=== PATIENT | female | born 1945 | race Caucasian/White ===

== ENCOUNTER 2019-07-24 22:21 | Inpatient (IN) | payer MEDICARE, OTHER, SELFPAY ==
--- NOTE | 2019-07-24 22:21 | EKG12_ITS ---
Test Reason : Blood Pressure : / mmHG Vent. Rate : 100 BPM Atrial Rate : 100 BPM P-R Int : 146 ms QRS Dur : 098 ms QT Int : 338 ms P-R-T Axes : 083 062 -31 degrees QTc Int : 436 ms Normal sinus rhythm ST & T wave abnormality, consider inferior ischemia Abnormal ECG No previous ECGs available Confirmed by CESAR GARCIA, AVEL ([id number]), assistant film editor CADEN MALHOTRA ([id number] on 07/26/2019 9:41:41 AM Referred By: Confirmed By:DAVE GUERRERO MD
[2019-07-24 22:54] VITALS: BMI 38.5
--- NOTE | 2019-07-24 22:56 | PCM.HP.STD ---
Problem List (1) Non-STEMI (non-ST elevated myocardial infarction) Status: Acute (2) Chest pain Status: Acute Qualifiers: Chest pain type: unspecified Qualified Code(s): R07.9 - Chest pain, unspecified (3) Hypertension Status: Chronic Qualifiers: Hypertension type: essential hypertension Qualified Code(s): I10 - Essential (primary) hypertension (4) Chronic obstructive pulmonary disease (COPD) Status: Chronic Qualifiers: COPD type: unspecified COPD Qualified Code(s): J44.9 - Chronic obstructive pulmonary disease, unspecified (5) Former tobacco use Status: Chronic (6) Obesity (BMI 30-39.9) Status: Chronic History of Present Illness Date of Admission: 07/24/19 Chief Complaint: Chest pain, elevated troponin at OSH ED The patient is a 74 y/o F w/ PMHx: HTN, Chronic COPD who presents to the [facility] as a direct admission from [facility] on 07/24/19 with history of several weeks of occasional rare chest discomfort, moreso with activity with onset on day of ED presentation more severe discomfort, noted midsternal chest pressure with fluttering while digging a ditch, more severe pressure, 10/10 in severity initially with lightheadedness, dizziness, nausea without emesis and no increased diaphoresis requiring her to sit down, prompting ED evaluation. She had a stress testing 04/2018 at [facility] reportedly normal per the patient. Patient currently rates pain 0/10. OSH ED physician called back prior to patient transfer with update noting 1.39, remained pain free. Upon [facility] transition she does note some discomfort when she is up and moving primarily with usage of the restroom but upon evaluation per hospitalist denies any chest pressure. Work-up in the OSH ED included: VS: T 97.3, HR 118-->80, RR 18, BP 144/90, 93% on RA, 210 lbs. CBC w/ WBC 7.9, Hgb 14.7, Plts 149 without marked shift, no lymphopenia. BMP w/ Na 140, K 3.3, BUN/Cr 17/0.8, glucose 119. Trop: 0.35 (0-0.05 normal)-->2nd trop 1.39 EKG w/ sinus tachycardia with rate 110 (1709) with nonspecific ST segment changes without acute evidence of ischemia. CXR without acute cardiopulmonary findings. Medications: ASA 325 mg po x 1. Past Medical History Past Medical History (Chronic Problems): Chronic Problems Hypertension (Chronic) Chronic obstructive pulmonary disease (COPD) (Chronic) Former tobacco use (Chronic) Obesity (BMI 30-39.9) (Chronic) Surgical History: - - Bilateral total hip replacement, right ankle surgery, right carpal tunnel release, left hand surgery, gastric bypass. 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 Tobacco Use: Non-smoker Alcohol: None Drugs: None - *Family History Maternal History Items: Heart Disease Paternal History Items: Heart Disease Review of Systems Constitutional: Reports: Malaise, Weakness, Fatigue. Denies: Anorexia, Chills, Fever, Weight Change HEENT: Denies: Head Aches, Sinus Congestion, Sinus Drainage Cardiovascular: Reports: Chest Pain, Chest Pressure, Light Headedness. Denies: Chest Tightness, Heaviness, Palpitations Respiratory: Reports: Shortness of Breath, Shortness of breath at rest, Shortness of breath upon exertion, Wheezing. Denies: Cough, Sputum production Gastrointestinal: Reports: Nausea. Denies: Abdominal Pain, Vomiting Genitourinary: Denies: Dysuria Musculoskeletal: Reports: Joint Pain. Denies: Joint Tenderness Skin: Denies: Rash, Wounds Neurological: Denies: Numbness, Tingling, Focal weakness Psychiatric: Denies: Anxiety, Depression, Homicidal Ideations, Suicidal Ideations Hematologic/ Lymphatic: Denies: Easy Bruising, Easy Bleeding VTE Information - Inpt Only VTE Present on Admission: No VTE Mechan Device Prophylaxis: SCD's VTE Pharm Prophylaxis ordered?: Yes Patient Problems: Active and Suspected Problems Non-STEMI (non-ST elevated myocardial infarction) (Acute) Chest pain (Acute) Subjective: Patient seated upright in the C bed, currently denying chest discomfort, had been wheezing which subsided during evaluation, recent ambulation from restroom. Objective: Physical Examination: General: awake, alert, oriented x 3 and cooperative, seated upright in the PCU bed, no acute distress currently, denies any chest discomfort at this time. Skin: normal color, turgor, no icterus, cyanosis. HEENT: AT/NC, EOMI, PERRLA, MMM, no carotid bruits or JVD noted; ever, thickened neck makes examination difficult. Lungs: Upon initial evaluation expiratory wheezing heard audibly however upon evaluation diminished, greater bases but no audible wheezing, no rales or rhonchi and no evidence of distress. Heart: Regular rate and rhythm; no gallop, rub audible. Abdomen: soft, obese, NTTP, ND, normal BS, no HSM; however, habitus makes examination difficult. Extremities: no cyanosis, clubbing, bilateral lower extremity ankle to distal bradford edema but nonpitting. Neurological: patient awake, alert, oriented x 3; cognitive function intact; pupils equally reactive to light and accomodation; cranial nerves II-XII grossly normal, moving all 4 extremities, no focal deficits, strength moderately globally Destiny secondary to acute presentation. Psychiatric: affect appears mildly fatigued otherwise pleasant and normal, no acute evidence of depressive or anxiety feelings. - Physical Exam Current Medications Acetaminophen (Tylenol) 650 mg PO Q6H PRN PRN PRN Reason: Pain Score 1-10/Temp > 100.7 F Al Hydroxide/Mg Hydroxide (Mylanta Ii) 30 ml PO Q6H PRN PRN PRN Reason: Gastric Burning Albuterol Sulfate (Ventolin Aerosols) 2.5 mg INHALATION Q2H PRN PRN PRN Reason: Dyspnea, wheezing Albuterol/Ipratropium (Duoneb) 3 ml INHALATION Q6HWA.RT ANITA Aspirin (Aspirin, Baby) 81 mg PO DAILY@0800 [facility] Dextrose (D50w Syringe) 0 gm IV X1 PRN; Protocol PRN Reason: Hypoglycemia Famotidine (Pepcid) 20 mg PO BID ANITA Glucagon () 1 mg IM .X1 PRN PRN Reason: Hypoglycemia Guaifenesin (Robitussin) 20 ml PO Q4H PRN PRN PRN Reason: COUGH Hydralazine HCl (Apresoline Iv) 10 mg IV Q4H PRN PRN PRN Reason: SBP > 160 Sodium Chloride () 1,000 mls @ 100 mls/hr IV .Q10H ANITA Heparin Sodium/Dextrose () 25,000 units in 250 mls @ 0 mls/hr IV .Q0M ANITA; Protocol Sodium Chloride () 250 mls @ 15 mls/hr IV .[id number] PRN PRN Reason: Saline Flush Sodium Chloride () 250 mls @ 15 mls/hr IV .[id number] PRN PRN Reason: Additional IVPB Infusion Magnesium Hydroxide (Milk Of Magnesia) 30 ml PO DAILY PRN PRN PRN Reason: Constipation Melatonin (Melatonin) 3 mg PO QHS PRN PRN PRN Reason: INSOMNIA Morphine Sulfate () 2 mg IV Q3H PRN PRN PRN Reason: Pain Score 6-10/10 Nitroglycerin (Nitrostat) 0.4 mg SUBLINGUAL Q5M PRN PRN Reason: CARDIAC/CHEST PAIN Ondansetron HCl (Zofran) 4 mg IV Q8H PRN PRN PRN Reason: NAUSEA/VOMITING Oxycodone HCl (Oxyir) 5 mg PO Q4H PRN PRN PRN Reason: Pain Score 4-5/10 Prochlorperazine Edisylate (Compazine Iv) 5 mg IV Q4H PRN PRN PRN Reason: Breakthrough Nausea/Vomiting Psyllium Hydrophilic Mucilloid (Metamucil) 1 packet PO DAILY PRN PRN PRN Reason: Constipation Senna/Docusate Sodium (Senokot-S, Mandi-Colace) 2 tablet PO BID PRN PRN PRN Reason: Constipation Sodium Chloride () 10 - 40 ml IV UD PRN PRN Reason: SALINE FLUSH Throat Lozenges (Cepacol Sore Throat Lozenge) 1 lozenge MUCOUS MEM Q2H PRN PRN PRN Reason: SORE THROAT Assessment/Plan All Active Problems Non-STEMI (non-ST elevated myocardial infarction) (Acute) Chest pain (Acute) The patient is a 74 y/o F w/ PMHx: HTN, Chronic COPD who presents to the [facility] as a direct admission from [facility] on 07/24/19 with history of several weeks of occasional rare chest discomfort, moreso with activity with onset on day of ED presentation more severe discomfort, noted midsternal chest pressure with fluttering while digging a ditch, more severe pressure, 10/10 in severity initially with lightheadedness, dizziness, nausea without emesis . 1. Chest Pain secondary to Acute NSTEMI: EKG in ED w/ sinus tachycardia with nonspecific ST segment changes with no acute evidence of ischemia, CXR w/ no acute cardiopulmonary findings. Trop elevated, 0.35 with repeat 1.39. Patient chest pain free in the OSH ED prior to transfer. Will admit to PCU, maintain on a monitored bed, continue serial cardiac enzymes and EKGs. Obtain magnesium level upon admission. Will continue therapeutic heparin drip. Continue medical management w/ asa, add statin w/ AM FLP hold on beta-vicente therapy given underlying COPD history pending cardiology evaluation, consideration transition to LISA inhibitor/ARB instead of patient diuretic hypertensive regimen. Cardiology consulted. Maintain NPO after midnight in case of cardiac catheterization decision with judicious hydration. ASA, NG, morphine. 2. Chronic COPD: Hold home inhaler, Will maintain on oxygen with wean as tolerated to room air, continue ATC duonebs, PRN albuterol, HOB, IS parameters. 3. Hypertension: Continue home regimen including chlorothiazide although given presentation discussed with patient likely transition to alternate regimen, PRN hydralazine. 4. Morbid Obesity: Weight loss and lifestyle changes encouraged. 5. Former tobacco use: Encouraged continued tobacco cessation. 6. DVT prophylaxis: SCDs, heparin drip as noted. Inpatient E&M: 85322 Init Hosp L3
[2019-07-24 23:15] VITALS: BP 111/74; PULSE 97; RESP 18; TEMP 36.4; O2SAT 96
[2019-07-24 23:29] VITALS: PULSE 103
[2019-07-25] VITALS (21 sets, daily range): BP systolic 104–151; BP diastolic 54–88; PULSE 78–96; RESP 16–18; TEMP 36.3–36.6; O2SAT 89–98
[2019-07-25] MEDS: 0.9% Normal Saline 1,000 ML 100 ML IV ×2 (00:12→08:28)
[2019-07-25 00:40] LABS: Partial Thromboplast Time 129.9 Seconds (24.1-36.2)
[2019-07-25] MEDS: Ipratropium/Albuterol Sulfate 3 ML AMPUL.NEB INHALATION ×5 (00:42→18:45)
[2019-07-25] MEDS: HEPARIN/D5w 25,000 UNITS 25,000 UNITS/250 ML IV.SOLN. 15 UNITS IV (00:59)
[2019-07-25 01:01] LABS: Magnesium 2.3 mg/dL (1.6-2.6)
[2019-07-25 03:07] LABS: Absolute Lymphocyte Count 0.97 X10^3/uL (0.83-4.51); Absolute Neutrophil Count 7.2 X10^3/uL (2.0-7.7); Basophil# 0.02 X10^3/uL; Basophil% 0.2 % (0-1); Eosinophil# 0.01 X10^3/uL; Eosinophils% 0.1 % (0-5); Hematocrit 41.6 % (37-47); Hemoglobin 13.5 g/dL (12.0-15.0); Lymphocyte # 0.97 X10^3/ul (4.0); Lymphocyte % 10.8 % (19-41); Mean Corp Hgb Conc 32.5 g/dL (32-36); Mean Corpuscular Hgb 29.2 pg (27.0-32.0); Mean Corpuscular Volume 89.8 fL (81-99); Mean Platelet Vol. 11.3 fl (6.2-12.0); Monocyte# 0.75 X10^3/uL; Monocyte% 8.4 % (0-10); NRBC Flagged by Analyzer 0 % (0-5); Neutrophil # 7.18 X10^3/uL (2.7-7.7); Neutrophil % 80.2 % (47-70); Platelet Count 149 K/mm3 (150-450); RBC Distribution Width SD 49.6 fl (35.1-43.9); Red Blood Count 4.63 M/mm3 (4.2-5.4)
[2019-07-25 03:22] LABS: Anion Gap 8 (5-15); BUN 17 mg/dL (7-18); Calcium,Total 8.6 mg/dL (8.5-10.1); Chloride 108 mmol/L (98-107); Cholesterol 157 mg/dL (200); Creatinine, Serum 0.85 mg/dL (0.55-1.02); EST Glomerular Filtration Rate 69 mL/min (>60); Est Glom Filt Rate - Afr Amer 84 mL/min (>60); Estimated Creatinine Clearance 56.47 ml/min; Glucose 115 mg/dL (74-106); High Density Lipoprotein 55 mg/dL; Potassium 3.4 mmol/L (3.5-5.1); Sodium Level 144 mmol/L (136-145); Triglycerides 99 mg/dL; Very Low Density Lipoprotein 20 mg/dL (5-40)
--- NOTE | 2019-07-25 05:55 | EKG12_ITS ---
Test Reason : Blood Pressure : / mmHG Vent. Rate : 091 BPM Atrial Rate : 091 BPM P-R Int : 128 ms QRS Dur : 096 ms QT Int : 364 ms P-R-T Axes : 080 064 005 degrees QTc Int : 447 ms Normal sinus rhythm ST & T wave abnormality, consider inferior ischemia Abnormal ECG When compared with ECG of 24-JUL-2019 23:45, MANUAL COMPARISON REQUIRED, DATA IS UNCONFIRMED Confirmed by CESAR GARCIA, AVEL ([id number]), editor continuity and script CADEN MALHOTRA ([id number]) on 07/26/2019 9:41:33 AM Referred By: Confirmed By:DAVE GUERRERO MD
[2019-07-25] MEDS: Aspirin 81 MG TAB.CHEW PO (06:48)
[2019-07-25 07:51] LABS: Partial Thromboplast Time 80.5 Seconds (24.1-36.2)
--- NOTE | 2019-07-25 08:02 | CPS ---
pt decreased to 2 lpm....95%. nurse aware of change
--- NOTE | 2019-07-25 08:32 | NURSING ---
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
--- NOTE | 2019-07-25 09:07 | CON.PCM_ITS ---
Reason for Consult Date of Consultation: 07/25/19 Reason for Consultation: Abnormal cardiac enzymes History of Present Illness: The patient is a 74 year old F with a past medical history significant for hypertension, probable obstructive pulmonary disease who was a direct admission from [facility] on 07/24/2019. She apparently had started working on a ditch outside her house when she realized that she was getting some fluttering in her chest. She also did have some chest pressure. There was associated lightheadedness and dizziness and some mild nausea. It prompted her to sit down. She says that she has been otherwise well. She had undergone stress testing a year ago which was reportedly normal. She presented to the emergency room where an EKG was done and cardiac enzymes were noted to be abnormal. The patient was then transferred to this hospital for further evaluation and management and was admitted by the hospitalist. She has had no chest pain since admission and no further palpitations. She had previously been compliant with her medications. [] Past Medical History Allergies/Adverse Reactions: Allergies fenoprofen [From Nalfon] Allergy (Verified 07/24/19 23:06) Swelling tolmetin [From Tolectin] Allergy (Verified 07/24/19 23:07) Swelling Home Medications: Ambulatory Orders Medication Instructions Recorded Hydrochlorothiazide [Hctz] 25 mg PO DAILY 07/25/19 Umeclidinium Brm/Vilanterol Tr 1 puff INHALATION DAILY 07/25/19 [Anoro Ellipta 62.5-25 Mcg INH] Past Medical History (Chronic Problems): Chronic Problems Hypertension (Chronic) Chronic obstructive pulmonary disease (COPD) (Chronic) Former tobacco use (Chronic) Obesity (BMI 30-39.9) (Chronic) Surgical History: - - Bilateral total hip replacement, right ankle surgery, right carpal tunnel release, left hand surgery, gastric bypass. 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 Tobacco Use: Non-smoker Alcohol: None Drugs: None Review of Systems - Review of Systems General: Denies: Fever, Night Sweats, Fatigue HEENT: Denies: Vision Change Cardiovascular: Reports: Chest Discomfort, Palpitations. Denies: Shortness of Breath, Orthopnea, PND, Peripheral Edema, Lightheadedness, Dizziness, Near Syncope, Syncope Respiratory: Denies: Cough, Sputum Production, Hemoptysis Gastrointestinal: Denies: Hematemesis, Hematochezia, Melena Genitourinary: Denies: Dysuria, Hematuria Muscoloskeletal: Denies: Myalgias Skin: Denies: Rash Neurological: Reports: Dizziness Psychiatric: Denies: Anxiety Endocrine: Denies: Heat Intolerance Hematologic/ Lymphatic: Denies: Anemia Subjectve: Pleasant lady in no distress Objective: Vital Signs Temp Pulse Resp BP Pulse Ox 97.6 F L 90 18 113/66 95 07/25/19 06:50 07/25/19 07:00 07/25/19 06:50 07/25/19 06:50 07/25/19 06:50 Oxygen Flow Rate (L/min) 2 Oxygen Delivery Method Nasal Cannula Weight: 246 lb 0.574 oz Body Mass Index (BMI) 38.5 Intake and Output for Last 24 Hours 07/23/19 07/24/19 07/25/19 23:59 23:59 23:59 Intake Total 240 / 240 889.85 / 889.85 Balance 240 / 240 889.85 / 889.85 General: Awake, Alert, Oriented x 3 HEENT: PERRL, EOMI, Sclera Non Icteric Neck: Supple, Good ROM, No Lymph Node Enlargement Lungs: Clear to auscultation Cardiovascular: Regular Rhythm, Normal S1, Normal S2, No Murmurs, No Rubs, No Gallops Vascular: No Carotid Bruits, Normal Femoral Pulses, Normal Radial Pulses, Normal Dorsalis Pedal Pulse, Normal Posterior Tibial Pulses Abdomen: Bowel Sounds Present, Soft, Non Tender, No HSM, No Organomegaly Extremities: No Cyanosis, No Clubbing, No edema Musculoskeletal: No Erythema Skin: No Rashes Lymphatic: No Lymph Node Enlargement Neurological: No Focal Motor or Sensory Deficit Psych/Mental Status: Appropriate 07/25/19 00:06: Magnesium 2.3, Troponin I 3.030 H* 07/25/19 00:06: APTT 129.9 H* 07/25/19 02:50: WBC 9.0, RBC 4.63, Hgb 13.5, Hct 41.6, MCV 89.8, MCH 29.2, MCHC 32.5, Plt Count 149 L, MPV 11.3, Immature Gran % (Auto) 0.300, Neut % (Auto) 80.2 H, Lymph % (Auto) 10.8 L, Snyder % (Auto) 8.4, Eos % (Auto) 0.1, Baso % (Auto) 0.2, Absolute Neuts (auto) 7.2, Nucleated RBC % 0 07/25/19 02:50: Sodium 144, Potassium 3.4 L, Chloride 108 H, Carbon Dioxide 28.0, Anion Gap 8, BUN 17, Creatinine 0.85, Est GFR (MDRD) Af Amer 84, Est GFR (MDRD) Non-Af 69, BUN/Creatinine Ratio 20.0, Glucose 115 H, Calcium 8.6, Triglycerides 99, Cholesterol 157, LDL Cholesterol 82, VLDL Cholesterol 20, HDL Cholesterol 55 07/25/19 02:50: Troponin I 2.520 H* 07/25/19 07:00: APTT 80.5 H 07/25/19 07:00: Troponin I 2.160 H* Rhythm: EKG: EKG done on presentation demonstrated normal sinus rhythm with mild ST depression noted in the inferior lateral leads. Rate of 100 bpm ECHO: Stress Test: Cardiac Cath: PCI: CT Surgery: Holter monitor: EPS: PPM: CXR: Chest CT Scan: Assessment/Plan 1. Non-ST elevation myocardial infarction Patient presents with chest discomfort and dizziness with palpitations and EKG changes and ruled in for a non-ST elevation myocardial infarction which appears to be fairly significant. On the basis of the above it is thought that she is high risk and should undergo assessment with a cardiac catheterization. She does have resting EKG changes as well. The risk benefits and alternatives of been explained to her she understands and agrees to proceed. Would continue with aspirin Administer Brilinta 180 mg We will start a beta-vicente Pursue a cardiac catheterization. It is felt that if this is not performed urgently with a cardiac enzyme elevation that could be risk for further cardiac damage. 2. Hypertension * Blood pressure was noted to be elevated. Will need to add LISA inhibitor or beta-vicente to her regimen. * 3. Lipid profile * Lipid profile appears to be acceptable. * * Thank you for allowing me to participate in the care of your patient. Please don't hesitate to call if any issues arise. * Addendum cardiac catheterization. Left main normal. Left anterior descending artery with no significant disease. Left circumflex artery with no significant disease. Right coronary artery with evidence of plaque rupture and 30% mid to distal stenosis. Preserved ejection fraction. Based on the above angiographic findings I would recommend medical therapy. As patient lives alone I would recommend keeping patient overnight and discharging in a.m. Essential Procedure Criteria Procedure Essential: Yes Criteria Note: On 07/02/2019 the [facility] ([facility]) Public Order signed by [facility] Director Teetee Meehan M.D., regarding the Management of Non- Essential Surgeries and Procedures for the purpose of preserving Personal Protective Equipment (PPE) and critical hospital capacity and resources within [place] went into effect as of 07/03/2019 at 5:00PM. According to the [facility] Public Order: This action will remain in full force and effect until the State of Emergency declared by the Governor no longer exists or the Director of the [facility] rescinds or modifies this Order.. This [facility] order stated all non-essential or elective surgeries and procedures that utilize PPE should be delayed unless there is undue risk to the current or future health of a patient. After reviewing the aforementioned [facility] Public Order and the patients clinical case, I have determined that the scheduled procedure meets the criteria to go forward. Risk to Patient if Procedure Delayed: Threat to patient's life if surgery or procedure is not performed - NSTEMI
--- NOTE | 2019-07-25 09:40 | CL.D_ITS ---
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 The risks and benefits of the procedure as well as a full d escription of our services here and current unavailability of surgical backup were fully explained to the patient and/or their significant other prior to the catheterization. The Timeout was completed, verifying the correct patient and procedure. The patient's procedural site was prepped and draped in the usual fashion. Local anesthetic was given subcutaneously to right radial region with Lidocaine 2% . Using a modified Seldinger technique, arterial access was obtained via the right radial artery, a 6 Fr sheath was inserted. Left Coronary Artery selective angiography was performed in multiple views u sing a 5 Fr. 4.0 Howard catheter. Right Coronary Artery selective angiography was then performed in mu ltiple views using a 5 Fr. 4.0 Howard catheter. Left Ventriculography was performed in SOUZA projection using a 5 Fr. Pigtail catheter. LV to AO pullback pressures were then recorded.The arterial sheath was pulled and a TR Band was applied for hemostasis-15 cc air CORONARY ANGIOGRAPHY DOMINANCE: Right Dominant LEFT HEART ASSESSMENT Left Ventricular Ejection Fraction: by LV Gram 55 % Normal LV wall motion Normal Left Ventricular systolic function LEFT MAIN: Angiographically normal LEFT ANTERIOR DESCENDING ARTERY: No significant disease noted CIRCUMFLEX ARTERY: No significant disease noted RIGHT CORONARY ARTERY: MID RCA: Mild luminal irregularities less than 30% RT PDA: Distal - No significant disease noted COMPLICATIONS No Complications PROCEDURE MEDICATIONS Fentanyl 50 mcg IV Versed 1 mg IV Oxygen: 2 L/min via nasal cannula Brilinta 180 mg PO @ 07/25/2019 08:47:23 Heparin diluted in 23cc Heparinized saline. Patient given 10cc IA of this solution. 07/25/2019 09:18:1 4 Potassium Chloride 40 mEq PO 07/25/2019 09:10:40 Verapamil 2.5mg, Ntg 100mcgs, 2000 units of Heparin diluted in 23cc Heparinized saline. Patient give n 10cc IA of this solution. 07/25/2019 09:18:14 IV Bolus: .9 NaCl 400 ml total throughout procedure 07/25/2019 09:33:32 SUMMARY OF HEMODYNAMIC DATA Time AIR REST ECG 09:10:06 AO 72/49 (57) SA 09:20:34 LV 82/-6, 1 09:26:35 LV 82/-5, -2 09:26:41 LV 71/9, 14 09:27:36 LV 70/7, 8 09:27:42 LV 96/-2, 0 09:28:40 LVp 98/3, 33 09:28:45 AOp 87/45 (64) 09:28:50 Signed By Harvinder Mejia MD On 07/25/2019 09:39:47 Harvinder Mejia MD
[2019-07-25] MEDS: Lisinopril 5 MG Tablet PO (10:34)
[2019-07-25] MEDS: Famotidine 20 MG Tablet PO ×2 (10:34→22:26)
[2019-07-25] MEDS: hydroCHLOROthiazide 25 MG Tablet PO (10:34)
--- NOTE | 2019-07-25 10:53 | PN_ITS ---
Patient Problems: Active and Suspected Problems Non-STEMI (non-ST elevated myocardial infarction) (Acute) Chest pain (Acute) Reason for Visit: Chest pain, unstable angina and non-STEMI Objective: Hemodynamically stable. Heart rate 79/min blood pressure 111/67. Patient had heart cath in the morning today. Vitals/I&O's: Vital Signs Temp Pulse Resp BP Pulse Ox 97.6 F L 79 16 111/67 94 07/25/19 06:50 07/25/19 10:05 07/25/19 10:05 07/25/19 10:05 07/25/19 10:05 Oxygen Flow Rate (L/min) 2 Oxygen Delivery Method Room Air Weight: 246 lb 0.574 oz Body Mass Index (BMI) 38.5 Intake and Output for Last 24 Hours 07/23/19 07/24/19 07/25/19 23:59 23:59 23:59 Intake Total 240 / 240 1389.85 / 1389.85 Balance 240 / 240 1389.85 / 1389.85 General: Alert, Oriented x3, Cooperative HEENT: Atraumatic, PERRLA, EOMI, Normocephalic Oral: No Gingival or Mucosal Lesions/ Ulcerations, Dry Mucosa Neck: Supple, No JVD, Negative Carotid Bruits Lungs: Clear to auscultation, No rhonchi, No wheeze, No rales, Diminished Cardiovascular: Regular rate, Regular Rhythm, Normal S1, Normal S2, No murmurs Abdomen: Bowel Sounds Present, Soft, Non Tender, Non-Distended Extremities: No edema, Capillary Refill Less than 3 Seconds Skin: No rashes, No breakdown Musculoskeletal: No Tenderness to Palpation of Joints or Extremities Neurological: Cranial nerves II-XII grossly intact, Deep Tendon Reflexes 2+/4 and Symmetrical, Neuro grossly intact Psych/Mental Status: Normal Affect, Appropriate Laboratory Results 07/25/19 00:06: Magnesium 2.3, Troponin I 3.030 H* 07/25/19 00:06: APTT 129.9 H* 07/25/19 02:50: WBC 9.0, RBC 4.63, Hgb 13.5, Hct 41.6, MCV 89.8, MCH 29.2, MCHC 32.5, RDW Std Deviation 49.6 H, RDW Coeff of Nicky 15.0 H, Plt Count 149 L, MPV 11.3, Immature Gran % (Auto) 0.300, Neut % (Auto) 80.2 H, Lymph % (Auto) 10.8 L, Hemphill % (Auto) 8.4, Eos % (Auto) 0.1, Baso % (Auto) 0.2, Absolute Neuts (auto) 7.2, Absolute Lymphs (auto) 0.97, Nucleated RBC % 0 07/25/19 02:50: Sodium 144, Potassium 3.4 L, Chloride 108 H, Carbon Dioxide 28.0, Anion Gap 8, BUN 17, Creatinine 0.85, Estim Creat Clear Calc 56.47, Est GFR (MDRD) Af Amer 84, Est GFR (MDRD) Non-Af 69, BUN/Creatinine Ratio 20.0, Glucose 115 H, Calcium 8.6, Triglycerides 99, Cholesterol 157, LDL Cholesterol 82, VLDL Cholesterol 20, HDL Cholesterol 55 07/25/19 02:50: Troponin I 2.520 H* 07/25/19 07:00: APTT 80.5 H 07/25/19 07:00: Troponin I 2.160 H* Current Medications Acetaminophen (Tylenol) 650 mg PO Q6H PRN PRN PRN Reason: Pain Score 1-10/Temp > 100.7 F Al Hydroxide/Mg Hydroxide (Mylanta Ii) 30 ml PO Q6H PRN PRN PRN Reason: Gastric Burning Albuterol Sulfate (Ventolin Aerosols) 2.5 mg INHALATION Q2H PRN PRN PRN Reason: Dyspnea, wheezing Albuterol/Ipratropium (Duoneb) 3 ml INHALATION Q6HWA.RT [facility] Last Admin: 07/25/19 06:45 Dose: 3 ml Documented by: Aspirin (Aspirin, Baby) 81 mg PO DAILY@0800 [facility] Last Admin: 07/25/19 06:48 Dose: 81 mg Documented by: Atorvastatin Calcium (Lipitor) 40 mg PO QHS [facility] Dextrose (D50w Syringe) 0 gm IV X1 PRN; Protocol PRN Reason: Hypoglycemia Famotidine (Pepcid) 20 mg PO BID [facility] Last Admin: 07/25/19 10:34 Dose: 20 mg Documented by: Glucagon () 1 mg IM .X1 PRN PRN Reason: Hypoglycemia Guaifenesin (Robitussin) 20 ml PO Q4H PRN PRN PRN Reason: COUGH Heparin Sodium (Porcine) (Heparin Na) 0 unit IV UD PRN; Protocol Hydralazine HCl (Apresoline Iv) 10 mg IV Q4H PRN PRN PRN Reason: SBP > 160 Hydrochlorothiazide (Hctz) 25 mg PO DAILY [facility] Last Admin: 07/25/19 10:34 Dose: 25 mg Documented by: Sodium Chloride () 1,000 mls @ 100 mls/hr IV .Q10H [facility] Last Infusion: 07/25/19 10:00 Dose: 100 mls/hr Documented by: Heparin Sodium/Dextrose () 25,000 units in 250 mls @ 15 mls/hr IV .[id number] [facility]; Protocol Last Admin: 07/25/19 10:25 Dose: Not Given Documented by: Sodium Chloride () 250 mls @ 15 mls/hr IV .[id number] PRN PRN Reason: Saline Flush Sodium Chloride () 250 mls @ 15 mls/hr IV .[id number] PRN PRN Reason: Additional IVPB Infusion Sodium Chloride () 250 mls @ 15 mls/hr IV .[id number] PRN PRN Reason: Saline Flush Sodium Chloride () 250 mls @ 15 mls/hr IV .[id number] PRN PRN Reason: Additional IVPB Infusion Sodium Chloride () 1,000 mls @ 75 mls/hr IV .[id number] [facility] Last Admin: 07/25/19 10:24 Dose: Not Given Documented by: Lisinopril (Zestril) 5 mg PO DAILY [facility] Last Admin: 07/25/19 10:34 Dose: 5 mg Documented by: Magnesium Hydroxide (Milk Of Magnesia) 30 ml PO DAILY PRN PRN PRN Reason: Constipation Melatonin (Melatonin) 3 mg PO QHS PRN PRN PRN Reason: INSOMNIA Metoprolol Succinate (Toprol Xl (Beta Corky)) 25 mg PO DAILY [facility] Morphine Sulfate () 2 mg IV Q3H PRN PRN PRN Reason: Pain Score 6-10/10 Nitroglycerin (Nitrostat) 0.4 mg SUBLINGUAL Q5M PRN PRN Reason: CARDIAC/CHEST PAIN Ondansetron HCl (Zofran) 4 mg IV Q8H PRN PRN PRN Reason: NAUSEA/VOMITING Oxycodone HCl (Oxyir) 5 mg PO Q4H PRN PRN PRN Reason: Pain Score 4-5/10 Prochlorperazine Edisylate (Compazine Iv) 5 mg IV Q4H PRN PRN PRN Reason: Breakthrough Nausea/Vomiting Psyllium Hydrophilic Mucilloid (Metamucil) 1 packet PO DAILY PRN PRN PRN Reason: Constipation Senna/Docusate Sodium (Senokot-S, Mandi-Colace) 2 tablet PO BID PRN PRN PRN Reason: Constipation Sodium Chloride () 10 - 40 ml IV UD PRN PRN Reason: SALINE FLUSH Sodium Chloride () 10 - 40 ml IV UD PRN PRN Reason: SALINE FLUSH Throat Lozenges (Cepacol Sore Throat Lozenge) 1 lozenge MUCOUS MEM Q2H PRN PRN PRN Reason: SORE THROAT STROKE Vital Signs/Narrative: Vital Signs Pulse Resp BP Pulse Ox 07/25/19 10:05 79 16 111/67 94 07/25/19 09:50 79 16 120/67 95 07/25/19 07:00 90 Medical Necessity - Tobacco Use Smoking Status: Former smoker - Patient quit cigarette tobacco usage approximately 30 years prior with prior to this up to 2 pack/day since she was in her 20s. Tobacco Use: Non-smoker Assessment/Plan All Active Problems Non-STEMI (non-ST elevated myocardial infarction) (Acute) Chest pain (Acute) The patient is a 74 y/o F with history of COPD was admitted directly from [facility] 04/20/2023 shortness of breath on exertion, chest pressure midsternal in location along with dizziness, nausea; near syncope symptoms along with elevated troponin consistent with non-STEMI. 1. non-STEMI: Troponins are elevated 2.5, 2.16. EKG normal sinus rhythm at [address] depression in inferior lateral leads. Patient is on aspirin, lisinopril and atorvastatin. Patient had cardiac catheterization which shows mild coronary artery disease. Cardiac cath showed EF 55% with normal LV motion and systolic function. Mid RCA less than 30% otherwise angiographically normal arteries. Patient is started on beta-corky Toprol-XL 25 mg daily. Discussed with the medical record consultant. 2. COPD: On DuoNeb scheduled, PRN albuterol, head of bed elevation, and incentive spirometry. Stable with no exacerbation. 3. Hypertension: Continue home regimen including chlorothiazide. Blood pressure is controlled. On HCTZ, lisinopril. 4. Morbid Obesity: Weight loss and lifestyle changes encouraged. 5. Former tobacco use: Encouraged continued tobacco cessation. 6. DVT prophylaxis: SCDs, heparin 5000 subcutaneous twice daily after 24 hours of end of cardiac cath procedure. CODE STATUS: Full code Inpatient E&M: 94183 Subs Hosp L2
--- NOTE | 2019-07-25 11:25 | CASEMGMT ---
RN SHAYY Face to Face with patient for initial transition planning/care coordination assessment. RN CM introduced self and role at [facility]. Patient lying in bed, alert and oriented. Patient willing to participate in assessment and is able to answer all questions appropriately. Care providers, pharmacy, and demographics verified. Patient wishes to discharge home, denies need for home health at this time. Patient states she has no further needs or concerns at this time. CM to follow for discharge planning needs that may arise. PCP: Claudia Craig Specialists: none [facility] [place] Insurance: [employer] Prescription Benefit: yes Living Will/HPOA: yes, states it is her great nephew, Jordan Fisher LNOK: sister, Ciara Trevizo Living Arrangements: Patient lives alone in single story home with with 2 steps to enter the home. Patient states she is independent at home. Transportation: self, sister DME/HHC: Patient states she has a shower chair, BSC, Raised toilet seat, cane, and walker at home. Patient denies previous HHC. Patient states sister is a nurse and lives next door. Disposition Plan: Patient to discharge home with family support and follow-up plans in place. Emma BARROSO, RN, CM
[2019-07-25] MEDS: Metoprolol(XL)Succ 25 MG Tablet PO (11:40)
[2019-07-25] MEDS: 0.9% Normal Saline 1,000 ML 50 ML IV (16:36)
[2019-07-25] MEDS: Atorvastatin Calcium 40 MG Tablet PO (22:26)
[2019-07-26 02:59] VITALS: PULSE 80
[2019-07-26 04:25] VITALS: BP 128/66; PULSE 72; RESP 18; TEMP 36.5; O2SAT 94
[2019-07-26 06:41] LABS: Anion Gap 6 (5-15); BUN 28 mg/dL (7-18); BUN/Creat Ratio 32.3 RATIO (10-20); Calcium,Total 8.2 mg/dL (8.5-10.1); Chloride 111 mmol/L (98-107); Creatinine, Serum 0.87 mg/dL (0.55-1.02); EST Glomerular Filtration Rate 68 mL/min (>60); Est Glom Filt Rate - Afr Amer 82 mL/min (>60); Estimated Creatinine Clearance 55.17 ml/min; Glucose 105 mg/dL (74-106); Potassium 4.1 mmol/L (3.5-5.1); Sodium Level 143 mmol/L (136-145)
[2019-07-26 06:52] VITALS: PULSE 70; RESP 18; O2SAT 95
[2019-07-26] MEDS: Ipratropium/Albuterol Sulfate 3 ML AMPUL.NEB INHALATION (06:52)
[2019-07-26 07:41] VITALS: PULSE 82
[2019-07-26 08:55] VITALS: BP 97/61; PULSE 70
[2019-07-26] MEDS: Aspirin 81 MG TAB.CHEW PO (08:55)
[2019-07-26] MEDS: hydroCHLOROthiazide 25 MG Tablet PO (08:55)
[2019-07-26] MEDS: Metoprolol(XL)Succ 25 MG Tablet PO (08:55)
[2019-07-26] MEDS: Famotidine 20 MG Tablet PO (08:55)
--- NOTE | 2019-07-26 10:09 | DCINST_ITS ---
- Discharge Diagnoses Current Active Problems: Current Active and Chronic Problems Non-STEMI (non-ST elevated myocardial infarction) (Acute) Chest pain (Acute) Hypertension (Chronic) Chronic obstructive pulmonary disease (COPD) (Chronic) Former tobacco use (Chronic) Obesity (BMI 30-39.9) (Chronic) You will use the following diet at home:: Cardiac Your food should be the consistency of: Regular Discharge Activity: May Not Drive - FOR 1 WEEK Call your doctor if you observe: Fever of 101 or Higher, Inability to urinate, Inability to have a bowel movement, Using more than one pad per hour, Shortness of breath, Dizziness, Fainting spells, Swelling in the ankles, Chest pain, Increased palpitations (irregular heartbeat), Calf discomfort, Uncontrolled pain Allergies/Adverse Reactions: Allergies fenoprofen [From Nalfon] Allergy (Verified 07/24/19 23:06) Swelling tolmetin [From Tolectin] Allergy (Verified 07/24/19 23:07) Swelling Medications to take at Discharge Hydrochlorothiazide [Hctz] 25 mg PO DAILY 07/25/19 Umeclidinium Brm/Vilanterol Tr [Anoro Ellipta 62.5-25 Mcg INH] 1 puff INHALATION DAILY 07/25/19 Aspirin [Aspirin, Baby] 81 mg PO DAILY@0800 #90 tab.chew 07/26/19 Atorvastatin Calcium [Lipitor] 40 mg PO QHS #30 tab 07/26/19 Lisinopril [Zestril] 2.5 mg PO DAILY #30 tab 07/26/19 Metoprolol(XL)Succ [Toprol Xl (Beta Corky)] 25 mg PO DAILY #60 tab 07/26/19 Nitroglycerin (INPATIENT USE) [Nitrostat] 0.4 mg SUBLINGUAL Q5M PRN #30 tab.subl 07/26/19 The following prescriptions were given: Aspirin [Aspirin, Baby] 81 mg PO DAILY@0800 #90 tab.chew Transmission Status: Pending to [facility]/pharmacy #[id number] Atorvastatin Calcium [Lipitor] 40 mg PO QHS #30 tab Transmission [facility]: [id number] Nitroglycerin (INPATIENT USE) [Nitrostat] 0.4 mg SUBLINGUAL Q5M PRN #30 tab.subl PRN Reason: Cardiac/Chest Pain Transmission Status: [id number] Metoprolol(XL)Succ [Toprol Xl (Beta Corky)] 25 mg PO DAILY #60 tab Transmission Status: [id number] Lisinopril [Zestril] 2.5 mg PO DAILY #30 tab Transmission Status: [id number] Primary Care Physician: Claudia Craig, [Primary Care Provider] - Please follow up with your Primary Care Physician in: [place] 2 week Test Results: Test results from this visit will be discussed in further detail at your follow- up appointment, if applicable. Please Follow Up With: Harvinder Mejia MD When: in 3-4 week
--- NOTE | 2019-07-26 10:10 | DS.PCM_ITS ---
Discharge Date and Diagnosis Date of Admission: 07/24/19 Date of Discharge: 07/26/19 - Primary Discharge Diagnosis Active and Suspected Problems Non-STEMI (non-ST elevated myocardial infarction) (Acute) Chest pain (Acute) - Secondary Discharge Diagnosis Chronic Problems Hypertension (Chronic) Chronic obstructive pulmonary disease (COPD) (Chronic) Former tobacco use (Chronic) Obesity (BMI 30-39.9) (Chronic) Hospital Course and Treatment Summary of Care Provided: [] The patient is a 74 y/o F with history of COPD was admitted directly from [facility] 04/20/2023 shortness of breath on exertion, chest pressure midsternal in location along with dizziness, nausea; near syncope symptoms along with elevated troponin consistent with non-STEMI. 1. non-STEMI: Troponins are elevated 2.5, 2.16. EKG normal sinus rhythm at [address] depression in inferior lateral leads. Patient is on aspirin, lisinopril and atorvastatin. Patient had cardiac catheterization which shows mild coronary artery disease. Cardiac cath showed EF 55% with normal LV motion and systolic function. Mid RCA less than 30% otherwise angiographically normal arteries. Patient is started on beta-corky Toprol-XL 25 mg daily. Discussed with the hinging machine operator. As the patient blood pressure is low, morning dose of HCTZ, lisinopril metoprolol held. Patient has portable BP monitor at home and patient was advised to hold antihypertensive medications systolic blood pressure is less than 110 mmHg. I decrease the dose of lisinopril to 2.5 mg daily. On metoprolol Toprol-XL 25 mg daily. Call PCP to further adjust the antihypertensive medication for blood pressure is low at home. Decrease the dose of HCTZ 12.5 mg daily. 2. COPD: On DuoNeb scheduled, PRN albuterol, head of bed elevation, and incentive spirometry. Stable with no exacerbation. 3. Hypertension: Blood pressure on lower side. See above. 4. Morbid Obesity: Weight loss and lifestyle changes encouraged. 5. Former tobacco use: Encouraged continued tobacco cessation. 6. DVT prophylaxis: SCDs, heparin 5000 subcutaneous twice daily after 24 hours of end of cardiac cath procedure. CODE STATUS: Full code Discharge medication reconciliation done. Discharge follow-up instructions completed. Discharge process discussed with the patient and all questions were answered to patient's satisfaction. Total time spent, exact 35 minutes on discharge meds reconciliation, examination, coordination of care with nurses and ancillary staff, review of imaging and blood test and discussion with the patient on follow-up instructions Subjective: No fever or chills. No shortness of breath. Her blood pressure 98/61. No dizziness or lightheadedness. Morning doses of antihypertensive medications held. Objective: General: Alert, Oriented x3, Cooperative HEENT: Atraumatic, PERRLA, EOMI, Normocephalic Oral: No Gingival or Mucosal Lesions/ Ulcerations, Dry Mucosa Neck: Supple, No JVD, Negative Carotid Bruits Lungs: Clear to auscultation, No rhonchi, No wheeze, No rales, air entry diminished bilateral lung bases Cardiovascular: Regular rate, Regular Rhythm, Normal S1, Normal S2, No murmurs Abdomen: Bowel Sounds Present, Soft, Non Tender, Non-Distended Extremities: No edema, Capillary Refill Less than 3 Seconds Skin: No rashes, No breakdown Musculoskeletal: No Tenderness to Palpation of Joints or Extremities Neurological: Cranial nerves II-XII grossly intact, Deep Tendon Reflexes 2+/4 and Symmetrical, Neuro grossly intact Psych/Mental Status: Normal Affect, Appropriate - Physical Exam Vitals/I&O's: Vital Signs Temp Pulse Resp BP Pulse Ox 97.7 F L 70 18 97/61 95 07/26/19 04:25 07/26/19 08:55 07/26/19 06:52 07/26/19 08:55 07/26/19 06:52 Oxygen Flow Rate (L/min) 1 Oxygen Delivery Method Nasal Cannula Weight: 246 lb 0.574 oz Body Mass Index (BMI) 38.5 Intake and Output for Last 24 Hours 07/24/19 07/25/19 07/26/19 23:59 23:59 23:59 Intake Total 240 / 240 2806.51 / 2806.51 100 / 100 Balance 240 / 240 2806.51 / 2806.51 100 / 100 Laboratory Results 07/26/19 05:40: Sodium 143, Potassium 4.1, Chloride 111 H, Carbon Dioxide 26.0, Anion Gap 6, BUN 28 H, Creatinine 0.87, Estim Creat Clear Calc 55.17, Est GFR (MDRD) Af Amer 82, Est GFR (MDRD) Non-Af 68, BUN/Creatinine Ratio 32.3 H, Glucose 105, Calcium 8.2 L Current Medications Acetaminophen (Tylenol) 650 mg PO Q6H PRN PRN PRN Reason: Pain Score 1-10/Temp > 100.7 F Al Hydroxide/Mg Hydroxide (Mylanta Ii) 30 ml PO Q6H PRN PRN PRN Reason: Gastric Burning Albuterol Sulfate (Ventolin Aerosols) 2.5 mg INHALATION Q2H PRN PRN PRN Reason: Dyspnea, wheezing Albuterol/Ipratropium (Duoneb) 3 ml INHALATION Q6HWA.RT [facility] Last Admin: 07/26/19 06:52 Dose: 3 ml Documented by: Aspirin (Aspirin, Baby) 81 mg PO DAILY@0800 [facility] Last Admin: 07/26/19 08:55 Dose: 81 mg Documented by: Atorvastatin Calcium (Lipitor) 40 mg PO QHS [facility] Last Admin: 07/25/19 22:26 Dose: 40 mg Documented by: Dextrose (D50w Syringe) 0 gm IV X1 PRN; Protocol PRN Reason: Hypoglycemia Famotidine (Pepcid) 20 mg PO BID [facility] Last Admin: 07/26/19 08:55 Dose: 20 mg Documented by: Glucagon () 1 mg IM .X1 PRN PRN Reason: Hypoglycemia Guaifenesin (Robitussin) 20 ml PO Q4H PRN PRN PRN Reason: COUGH Heparin Sodium (Porcine) (Heparin Na) 5,000 unit SC Q12 [facility] Last Admin: 07/26/19 08:56 Dose: Not Given Documented by: Hydralazine HCl (Apresoline Iv) 10 mg IV Q4H PRN PRN PRN Reason: SBP > 180 Hydrochlorothiazide (Hctz) 25 mg PO DAILY [facility] Last Admin: 07/26/19 08:55 Dose: 25 mg Documented by: Sodium Chloride () 1,000 mls @ 50 mls/hr IV .Q20H [facility] Last Admin: 07/25/19 16:36 Dose: 50 mls/hr Documented by: Sodium Chloride () 250 mls @ 15 mls/hr IV .[id number] PRN PRN Reason: Saline Flush Sodium Chloride () 250 mls @ 15 mls/hr IV .[id number] PRN PRN Reason: Additional IVPB Infusion Sodium Chloride () 250 mls @ 15 mls/hr IV .[id number] PRN PRN Reason: Saline Flush Sodium Chloride () 250 mls @ 15 mls/hr IV .[id number] PRN PRN Reason: Additional IVPB Infusion Lisinopril (Zestril) 5 mg PO DAILY [facility] Last Admin: 07/26/19 09:01 Dose: Not Given Documented by: Magnesium Hydroxide (Milk Of Magnesia) 30 ml PO DAILY PRN PRN PRN Reason: Constipation Melatonin (Melatonin) 3 mg PO QHS PRN PRN PRN Reason: INSOMNIA Metoprolol Succinate (Toprol Xl (Beta Corky)) 25 mg PO DAILY [facility] Last Admin: 07/26/19 08:55 Dose: 25 mg Documented by: Morphine Sulfate () 2 mg IV Q3H PRN PRN PRN Reason: Pain Score 6-10/10 Nitroglycerin (Nitrostat) 0.4 mg SUBLINGUAL Q5M PRN PRN Reason: CARDIAC/CHEST PAIN Ondansetron HCl (Zofran) 4 mg IV Q8H PRN PRN PRN Reason: NAUSEA/VOMITING Oxycodone HCl (Oxyir) 5 mg PO Q4H PRN PRN PRN Reason: Pain Score 4-5/10 Prochlorperazine Edisylate (Compazine Iv) 5 mg IV Q4H PRN PRN PRN Reason: Breakthrough Nausea/Vomiting Psyllium Hydrophilic Mucilloid (Metamucil) 1 packet PO DAILY PRN PRN PRN Reason: Constipation Senna/Docusate Sodium (Senokot-S, Mandi-Colace) 2 tablet PO BID PRN PRN PRN Reason: Constipation Sodium Chloride () 10 - 40 ml IV UD PRN PRN Reason: SALINE FLUSH Sodium Chloride () 10 - 40 ml IV UD PRN PRN Reason: SALINE FLUSH Throat Lozenges (Cepacol Sore Throat Lozenge) 1 lozenge MUCOUS MEM Q2H PRN PRN PRN Reason: SORE THROAT Discharge Activity: May Not Drive - FOR 1 WEEK Call your doctor if you observe: Fever of 101 or Higher, Inability to urinate, Inability to have a bowel movement, Using more than one pad per hour, Shortness of breath, Dizziness, Fainting spells, Swelling in the ankles, Chest pain, Increased palpitations (irregular heartbeat), Calf discomfort, Uncontrolled pain Home Medications: Medications to take at Discharge Hydrochlorothiazide [Hctz] 25 mg PO DAILY 07/25/19 Umeclidinium Brm/Vilanterol Tr [Anoro Ellipta 62.5-25 Mcg INH] 1 puff INHALATION DAILY 07/25/19 Aspirin [Aspirin, Baby] 81 mg PO DAILY@0800 #90 tab.chew 07/26/19 Atorvastatin Calcium [Lipitor] 40 mg PO QHS #30 tab 07/26/19 Lisinopril [Zestril] 2.5 mg PO DAILY #30 tab 07/26/19 Metoprolol(XL)Succ [Toprol Xl (Beta Corky)] 25 mg PO DAILY #60 tab 07/26/19 Nitroglycerin (INPATIENT USE) [Nitrostat] 0.4 mg SUBLINGUAL Q5M PRN #30 tab.subl 07/26/19 Following Prescrptions Were Given to Patient: Aspirin [Aspirin, Baby] 81 mg PO DAILY@0800 #90 tab.chew Transmission Status: Received by [facility]/pharmacy #[id number] Atorvastatin Calcium [Lipitor] 40 mg PO QHS #30 tab Transmission Status: [id number] Nitroglycerin (INPATIENT USE) [Nitrostat] 0.4 mg SUBLINGUAL Q5M PRN #30 tab.subl PRN Reason: Cardiac/Chest Pain Transmission Status: [id number] Metoprolol(XL)Succ [Toprol Xl (Beta Corky)] 25 mg PO DAILY #60 tab Transmission Status: [id number] Lisinopril [Zestril] 2.5 mg PO DAILY #30 tab Transmission Status: Received by [facility]/pharmacy #[id number] Primary Care Physician: Claudia Craig DO [Primary Care Provider] - Please follow up with your Primary Care Physician in: [place] 2 week Please Follow Up With: Harvinder Mejia MD When: in 3-4 week Medical Necessity - Tobacco Use Smoking Status: Former smoker - Patient quit cigarette tobacco usage approximately 30 years prior with prior to this up to 2 pack/day since she was in her 20s. Tobacco Use: Non-smoker Meaningful Use Info Meaningful Use Diagnoses (Choose all that apply): None applicable Inpatient E&M: 61309 [facility]
[2019-07-26 10:25] VITALS: BP 98/61; PULSE 79; RESP 18; TEMP 37; O2SAT 97
== END 2019-07-26 11:05 | disposition home or self-care (01) | DRG 282 ==
PROVIDERS: Admitting Provider Family Medicine; Visit Provider Internal Medicine
DX: I21.4 Non-ST elevation (NSTEMI) myocardial infarction (principal); I25.110 Atherosclerotic heart disease of native coronary artery with unstable angina pectoris; I10 Essential (primary) hypertension; J44.9 Chronic obstructive pulmonary disease, unspecified; Z87.891 Personal history of nicotine dependence; E66.01 Morbid (severe) obesity due to excess calories; Z68.38 Body mass index [BMI] 38.0-38.9, adult; Z98.84 Bariatric surgery status
CPT/HCPCS: 36415; 80048; 80061; 83735; 84484; 85025; 85730; 93005; 93458; 94640; 99152; 99153; J7030; Q9967; C1769; C1894

== ENCOUNTER 2019-08-18 14:05 | Inpatient (IN) | payer MEDICARE, OTHER, SELFPAY ==
[2019-08-13 13:34] VITALS: BMI 38.3
[2019-08-18] VITALS (9 sets, daily range): BP systolic 129–155; BP diastolic 56–78; PULSE 82–94; RESP 16–18; TEMP 36.6–37.4; O2SAT 92–96; BMI 38.3; BMI 38.4; BMI 38.7
--- NOTE | 2019-08-18 14:32 | EKG12_ITS ---
Test Reason : SOB Blood Pressure : / mmHG Vent. Rate : 085 BPM Atrial Rate : 085 BPM P-R Int : 138 ms QRS Dur : 092 ms QT Int : 428 ms P-R-T Axes : 058 017 035 degrees QTc Int : 509 ms Normal sinus rhythm T wave abnormality, consider anterior ischemia Prolonged QT Abnormal ECG Confirmed by MARC GARCIA, GA ([id number]), electronic news gathering editor CADEN MALHOTRA ([id number]) on 08/20/2019 11:16:24 AM Referred By: SYED Confirmed By:GA TRAN MD
--- NOTE | 2019-08-18 14:32 | RAD_ITS ---
STUDY: X-RAY CHEST REASON FOR EXAM: Female, 74 years old. SOB TECHNIQUE: Single AP portable view of the chest. COMPARISON: None. FINDINGS: Left lower lobe patchy airspace disease and small layering effusion is present. There is no demonstrated pleural abnormality. Normal size heart. Normal mediastinum and armando. Normal visualized pulmonary arteries. Normal visualized aortic arch and descending thoracic aorta. Normal visualized thoracic spine. Normal visualized ribs, clavicles, and shoulders. There is no demonstrated abnormality of the visualized soft tissue structures of the upper abdomen. RAD/Chest 1 View (Portable) IMPRESSION: Left lower lobe airspace disease and small layering effusion concerning for acute infiltrate in the appropriate clinical setting. Electronically Signed: Grzegorz Hernandes DO at 15:26 EDT , Service support ,
[2019-08-18] MEDS: MethylPREDNISolone 125 MG/2 ML Vial IV (14:48)
[2019-08-18 14:52] LABS: Absolute Lymphocyte Count 0.73 X10^3/uL (0.83-4.51); Absolute Neutrophil Count 11.4 X10^3/uL (2.0-7.7); Basophil# 0.01 X10^3/uL; Basophil% 0.1 % (0-1); Eosinophil# 0.01 X10^3/uL; Eosinophils% 0.1 % (0-5); Hematocrit 40.5 % (37-47); Hemoglobin 13.2 g/dL (12.0-15.0); Lymphocyte # 0.73 X10^3/ul (4.0); Lymphocyte % 5.4 % (19-41); Mean Corp Hgb Conc 32.6 g/dL (32-36); Mean Corpuscular Hgb 28.4 pg (27.0-32.0); Mean Corpuscular Volume 87.1 fL (81-99); Mean Platelet Vol. 11.1 fl (6.2-12.0); Monocyte# 1.35 X10^3/uL; Monocyte% 9.9 % (0-10); NRBC Flagged by Analyzer 0 % (0-5); Neutrophil # 11.44 X10^3/uL (2.7-7.7); Neutrophil % 84.3 % (47-70); Platelet Count 182 K/mm3 (150-450); RBC Distribution Width CV 14.4 % (11.6-14.6); RBC Distribution Width SD 46.1 fl (35.1-43.9); Red Blood Count 4.65 M/mm3 (4.2-5.4); White Blood Count 13.6 K/mm3 (4.4-11.0)
[2019-08-18 15:10] LABS: Anion Gap 6 (5-15); BUN 20 mg/dL (7-18); BUN/Creat Ratio 23.9 RATIO (10-20); Calcium,Total 9.1 mg/dL (8.5-10.1); Chloride 104 mmol/L (98-107); Creatinine, Serum 0.84 mg/dL (0.55-1.02); EST Glomerular Filtration Rate 71 mL/min (>60); Est Glom Filt Rate - Afr Amer 86 mL/min (>60); Estimated Creatinine Clearance 57.14 ml/min; Glucose 135 mg/dL (74-106); Potassium 3.2 mmol/L (3.5-5.1); Sodium Level 139 mmol/L (136-145)
[2019-08-18 15:12] LABS: D-Dimer Quantitative (DVT/PE) 4.61 FEU/ug/m (0.27-0.49)
--- NOTE | 2019-08-18 15:15 | CT_ITS ---
We are attempting to reach an attending provider to discuss findings. An addendum with communication details will be sent when the communication is complete. STUDY: CTA CHEST REASON FOR EXAM: Female, 74 years old. DYSPNEA RADIATION DOSAGE (If Supplied By Facility): CTDIvol = ( 11.37 ) mGy, DLP = ( 475.49 ) mGycm TECHNIQUE: The examination was performed with the intravenous administration of 100 CC ISOVUE 370. Post-processing of the angiographic images was performed, with multiplanar reformation and 3D reconstruction. Individualized dose optimization techniques were used for this CT. COMPARISON: None. FINDINGS: There are multiple segmental and subsegmental pulmonary emboli in the right upper lobe and bilateral lower lobes with the left lower lobe emboli being nearly occlusive in nature. There are mild emphysematous changes noted in the lungs. There is a small left pleural effusion. There is groundglass opacity in the left lower lobe which is more pronounced peripherally. The right lung is clear. The central airways are patent. There is no pneumothorax. There is no evidence of thoracic aortic aneurysm or dissection. The heart is normal in size. There is a small pericardial effusion. Images through the upper abdomen demonstrate surgical clips in the left upper quadrant. There are no destructive osseous lesions. CT/CTA Chest W/WO Contrast IMPRESSION: Multiple segmental and subsegmental pulmonary emboli in the right upper lobe and bilateral lower lobes with the left lower lobe emboli being nearly occlusive in nature. Groundglass opacity in the left lower lobe which is more pronounced peripherally. Given the large amount of pulmonary emboli in this distribution, this likely represents developing pulmonary infarcts. Small left pleural effusion. Small pericardial effusion. Electronically Signed: Vladimir Carson, at 15:56 EDT Tel , Service support ,
[2019-08-18 15:27] LABS: BNP,B-Type NATRIURETIC PEPTIDE 131.2 pg/mL (0-100)
[2019-08-18] MEDS: Ceftriaxone 1 GM/50 ML BAG IV (16:15)
[2019-08-18] MEDS: Enoxaparin 120 MG/0.8 ML Syringe 111 MG SC (16:28)
--- NOTE | 2019-08-18 16:28 | NURSING ---
PCU PAINTSIL DYSPNEA, PULMONARY EMBOLI, PULMONARY INFARCT
--- NOTE | 2019-08-18 16:30 | HP.PCM_ITS ---
History of Present Illness Date of Admission: 08/18/19 Chief Complaint: Shortness of breath - 1 week The patient is a 74 year old F with past medical history of COPD who was recently admitted and discharged 07/26/19 with acute non-STEMI. Cardiac cath at that time showed EF of 55%, less than 30% mid RCA stenosis. Patient complains of feeling short of breath since her discharge. This apparently got a little better. But over the last 1 week, her shortness of breath has been progressive. She noticed bilateral leg swelling. She denied any orthopnea or PND. Denied any fever or any sick contact with any person with COVID 19 Her vitals in the ED showed temperature of 97.9F, heart rate 94, blood pressure 155/78, respiratory rate 16, SPO2 was 93% on room air. BC count is 13.6, hemoglobin 13.2, platelet count is 182, d-dimer is 4.61, sodium was 139, potassium 3.2, chloride 104, bicarbonate 29, BUN was 20, creatinine 0.84, BNpep was 131.2, troponins were negative. X-ray showed left lower lobe airspace disease with small layering effusion concerning for acute infiltrate. CTA of the chest showed multiple segmental and subsegmental PE in the right upper and bilateral lower lobes with left lower lobe emboli being nearly occlusive in nature. Past Medical History Past Medical History (Chronic Problems): Chronic Problems (Last Reviewed 08/13/19 @ 14:[address] Harvinder Mejia MD) Nonobstructive atherosclerosis of coronary artery (Chronic) Essential (primary) hypertension (Chronic) Medical History: Medical History (Last Reviewed 08/13/19 @ 14:[address] Harvinder Mejia MD) Nonobstructive atherosclerosis of coronary artery (Chronic) I25.10 History of non-ST elevation myocardial infarction (NSTEMI) (Resolved) Onset Date: 07/25/19 I25.2 Essential (primary) hypertension (Chronic) I10 Chronic obstructive pulmonary disease (COPD) J44.9 bilateral hip replacement Former tobacco use Z87.891 Obesity (BMI 30-39.9) E66.9 Allergies fenoprofen [From [place]on] Allergy (Verified 08/18/19 14:09) Swelling tolmetin [From Tolectin] Allergy (Verified 08/18/19 14:09) Swelling Home Medications: Ambulatory Orders Medication Instructions Recorded Umeclidinium Brm/Vilanterol Tr 1 puff INHALATION DAILY 07/25/19 [Anoro Ellipta 62.5-25 Mcg INH] Aspirin [Aspirin, Baby] 81 mg PO DAILY@0800 #90 tab.chew 07/26/19 Nitroglycerin (INPATIENT USE) 0.4 mg SUBLINGUAL Q5M PRN #30 07/26/19 [Nitrostat] tab.subl atorvastatin 40 mg tablet 40 mg PO QHS #90 tab 08/13/19 hydrochlorothiazide 25 mg tablet 25 mg PO DAILY #90 tab 08/13/19 lisinopril 5 mg tablet 2.5 mg PO DAILY #30 tab 08/13/19 metoprolol succinate 25 mg 25 mg PO DAILY #60 tab 08/13/19 tablet,extended release 24 hr Surgical History: Surgical History (Last Reviewed 08/13/19 @ 14:[address] Harvinder Mejia MD) History of ankle surgery Z98.890 History of carpal tunnel release Z98.890 History of gastric bypass Z98.84 History of hip surgery Z98.890 History of left heart catheterization Onset Date: 07/25/19 Z98.890 Surgical History: - - Bilateral total hip replacement, right ankle surgery, right carpal tunnel release, left hand surgery, gastric bypass. 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 Harvinder Mejia MD) Mother Heart disease Father Heart disease History Items: Heart Disease, Pulmonary Disease Paternal Family History: Family History (Last Reviewed 08/13/19 @ 14:[address] Harvinder Mejia MD) Mother Heart disease Father Heart disease History Items: Heart Disease Review of Systems Constitutional: Denies: Anorexia, Chills, Fever, Malaise, Weakness, Weight Change, Fatigue Eyes: Denies: Blurred vision, Cataracts, Conjunctivae Inflammation HEENT: Denies: Difficulty Hearing, Head Aches, Hearing Changes, Sinus Congestion, Sinus Drainage Cardiovascular: Reports: Edema, Light Headedness. Denies: Chest Pain, Claudication, Orthopnea, Palpitations, Paroxysmal Noc. Dyspnea Respiratory: Reports: Cough. Denies: Shortness of Breath, Shortness of breath at rest, Shortness of breath upon exertion, Sputum production Gastrointestinal: Denies: Abdominal Pain, Constipation, Hematemesis, Nausea, Vomiting Genitourinary: Denies: Dysuria Gynecological: Denies: Breast symptoms, Excessively long or heavy periods Musculoskeletal: Denies: Joint Pain, Joint stiffness, Joint swelling, Joint Tenderness Skin: Denies: Rash, Wounds Neurological: Denies: Numbness, Tingling, Focal weakness Psychiatric: Denies: Anxiety, Depression, Homicidal Ideations, Suicidal Ideations Hematologic/ Lymphatic: Denies: Easy Bruising, Easy Bleeding VTE Information - Inpt Only VTE Present on Admission: Yes VTE Pharm Prophylaxis ordered?: Yes - Physical Exam Vitals/I&O's: Vital Signs Temp Pulse Resp BP Pulse Ox 97.9 F 94 16 155/78 H 93 08/18/19 14:07 08/18/19 14:07 08/18/19 14:07 08/18/19 14:07 08/18/19 14:07 Oxygen Delivery Method Room Air Weight: 111.13 kg Body Mass Index (BMI) 38.3 General: Alert, Oriented x3, Cooperative, No apparent distress, - - Morbidly obese HEENT: Atraumatic, PERRLA, EOMI, Normocephalic Oral: Moist Mucosa Neck: Supple Lungs: Clear to auscultation, Normal air movement Cardiovascular: Regular rate, Regular Rhythm, Normal S1, Normal S2, No murmurs Abdomen: Bowel Sounds Present, Soft, Non Tender, Non-Distended, No Hepato- splenomegaly Extremities: Edema - Bilateral trace to +1 bipedal edema Skin: No rashes Musculoskeletal: No Tenderness to Palpation of Joints or Extremities Lymphatic: No Cervical, Supraclavicular, or Inguinal Adenopathy Neurological: Cranial nerves II-XII grossly intact, Neuro grossly intact Psych/Mental Status: Normal Affect, Appropriate Laboratory Results 08/18/19 14:35: WBC 13.6 H, RBC 4.65, Hgb 13.2, Hct 40.5, MCV 87.1, MCH 28.4, MCHC 32.6, RDW Std Deviation 46.1 H, RDW Coeff of Nicky 14.4, Plt Count 182, MPV 11.1, Immature Gran % (Auto) 0.200, Neut % (Auto) 84.3 H, Lymph % (Auto) 5.4 L, Waldo % (Auto) 9.9, Eos % (Auto) 0.1, Baso % (Auto) 0.1, Absolute Neuts (auto) 11.4 H, Absolute Lymphs (auto) 0.73 L, Nucleated RBC % 0 08/18/19 14:35: D-Dimer Quant (PE/DVT) 4.61 H* 08/18/19 14:35: Sodium 139, Potassium 3.2 L, Chloride 104, Carbon Dioxide 29.0, Anion Gap 6, BUN 20 H, Creatinine 0.84, Estim Creat Clear Calc 57.14, Est GFR (MDRD) Af Amer 86, Est GFR (MDRD) Non-Af 71, BUN/Creatinine Ratio 23.9 H, Glucose 135 H, Calcium 9.1, Troponin I < 0.015 08/18/19 14:35: B-Natriuretic Peptide 131.2 H Current Medications Azithromycin 500 mg/ Dextrose 255 mls @ 250 mls/hr IV X1 ONE Stop: 08/18/19 16:56 Iopamidol (Contrast Allergy Check) 0 ml IV X1 ANITA Assessment/Plan All Active Problems (Last Reviewed 08/13/19 @ 14:[address] Harvinder Mejia MD) History of non-ST elevation myocardial infarction (NSTEMI) (Resolved 07/25/19) Chest pain (Resolved) 74 year old F with past medical history of COPD who was recently admitted and discharged 07/26/19 with acute non-STEMI comes in with progressive shortness of breath ongoing for 1 week. 1. Acute positive respiratory insufficiency secondary to acute bilateral PE/pulmonary infarct/pneumonia Less suspicious of COVID?19 Patient is not on oxygen at time of discharge We will encourage use of incentive spirometer, breathing treatments PRN 2. Acute bilateral PE with developing pulmonary infarcts Recent admission and discharge fort acute NSTEMI Will get doppler USG of lower legs On Lovenox therapeutic dosing, will continue Pulmonology Consult 3. Hypertension, controlled, continue home hydrochlorothiazide, lisinopril, metoprolol 4. COPD, not in acute exacerbation 5. Morbid obesity, BMI 38.4, lifestyle modification recommended 6. DVT PPx- on therapeutic Lovenox 7. Code status - Full code Discussed in detail with the patient explaining the various types of CODE STATUS-full code, DNR CCA, DNR CC. She prefers not to be kept on the ventilator for a long time if there is no chance. I explained to her that usually we do not have the opportunity to deliberate on that. She chose full code. I encouraged her to speak to the protective services social worker to appointed healthcare power of estate planning attorney. She prefers to choose and nephew. Social work will be consulted. Time spent discussing CODE STATUS 18 minutes Inpatient E&M: 46964 Init Hosp L3 Procedures: 34576 Advncd Care Plan 30 Min
--- NOTE | 2019-08-18 16:33 | ED.VISSUMM ---
- ER Visit Summary Date of Service: 08/18/19 Chief Complaint: [Dyspnea] History of Present Illness: The patient is a 74 F [patient presents with shortness of breath that started after being discharged several weeks ago from the hospital for a non-ST elevation PA. Patient states she had a heart cath at that time it only showed about 30% blockage in some of her arteries. No intervention was required. Patient states that she felt relatively well for a while but started feeling more short of breath over last 5 or 6 days. Patient also complains of pleuritic chest discomfort when she breathes to the left side of her chest. At times her cough is productive with some sputum and bringing up some blood-tinged sputum at times. She denies any fevers. She denies any COVID 19 exposures. Patient has history of hypertension. Patient's had prior bariatric surgery. No history of PE or DVT.] Physical Examination: [HEENT-PERRLA, EOMI. Cranial nerves II through XII grossly intact. TMs clear. Mucous membranes moist. No adenopathy. Cardiovascular-regular rate and rhythm without murmur or ectopy Lungs-clear to auscultation, chest wall stable without crepitus or subcu emphysema Abdomen-normoactive bowel sounds, soft, nontender, no rebound or rigidity, no peritoneal signs. Extremities-intact ?4, normal range of motion, normal pulses, atraumatic] Test Results: [CBC with differential showed a slightly elevated white count of 13.6, chemistries unremarkable. Troponin was less than 0.015. D-dimer was elevated at 4.5. Chest x-ray showed left lower lobe infiltrate. CT of the chest obtained showed bilateral pulmonary emboli with suspected pulmonary infarct in the left lower lobe.] Emergency Department Course and Treatment: [Patient was started initially on Rocephin and Zithromax. Blood cultures were ordered. Patient was started on Lovenox 111 mg subcu. Patient case discussed with hospitalist will evaluate patient for admission] Treatment Plan: [Admit] Disposition: [Admit] Impression: [Dyspnea Bilateral pulmonary emboli Left lower lobe pulmonary infarct] This note was generated with [employer] dictation software. It may contain incorrect words, spelling, and punctuation that were not noted in review of the chart p ED Disposition - Plan for ED Patient: Referrals: Claudia Craig DO [Primary Care Provider] -
--- NOTE | 2019-08-18 17:47 | VDLE_ITS ---
Reason For Study: Pulmonary embolism RIGHT LEFT GSV is normal. GSV is normal. CFV is compressible, spontaneous, phasic, CFV is partially compressible with minimal competent and demonstrates normal flow noted. augmentation. Acute deep vein thrombosis is noted in the FV is compressible, spontaneous, phasic, left FV, PopV, T/P Trunk, GastrocV and PTV. competent and demonstrates normal LT PerV is compressible. augmentation. POP V is compressible, spontaneous, phasic, competent and demonstrates normal augmentation. T/P Trunk is compressible. PTV is compressible. RT PerV is compressible. Procedure Exam performed portable in patient room. A preliminary report was called and/or faxed to [facility] and [facility]. Interpretation Summary There is no evidence of right lower extremity deep vein thrombosis. Acute deep venous thrombosis left common femoral and femoral and popliteal and tibioperoneal trunk and gastrocnemius and posterior tibial veins Patent and compressible bilateral great saphenous veins Ordering Physician: María Brooks Referring Physician: Claudia Craig Performed By: Emma Kennedy RVT
[2019-08-18] MEDS: Ipratropium/Albuterol Sulfate 3 ML AMPUL.NEB INHALATION (20:44)
[2019-08-18] MEDS: Atorvastatin Calcium 40 MG Tablet PO (22:05)
[2019-08-19] VITALS (8 sets, daily range): BP systolic 111–159; BP diastolic 61–69; PULSE 76–92; RESP 16–24; TEMP 36.7–37; O2SAT 80–98
[2019-08-19] MEDS: Enoxaparin 120 MG/0.8 ML Syringe 110 MG SC (06:01)
[2019-08-19] MEDS: Ipratropium/Albuterol Sulfate 3 ML AMPUL.NEB INHALATION ×2 (06:50→14:21)
[2019-08-19] MEDS: Ceftriaxone 1 GM/50 ML BAG IV (09:25)
[2019-08-19] MEDS: Aspirin 81 MG TAB.CHEW PO (09:25)
[2019-08-19] MEDS: hydroCHLOROthiazide 25 MG Tablet PO (09:25)
[2019-08-19] MEDS: Metoprolol(XL)Succ 25 MG Tablet PO (09:26)
[2019-08-19] MEDS: Lisinopril 2.5 MG Tablet PO (09:26)
--- NOTE | 2019-08-19 10:30 | ECHOD_ITS ---
Reason For Study: PALPITATIONS Procedure This was a 2D Doppler, Color Flow transthoracic echocardiogram. The study was technically difficult. Unable to utilize Definity for optimal endocardium imaging due to incresed PAP. Exam performed portable in patient room. Left Ventricle Normal LV size. Left ventricular systolic function is lower limits of normal. No regional wall motion abnormalities noted. Right Ventricle Moderately dilated right ventricle. Mild to moderate global right ventricular systolic dysfunction. Atria The left atrium is mildly enlarged. Normal right atrium. Mitral Valve There is mild mitral annular calcification. Tricuspid Valve Normal tricuspid valve. Moderate (2+) tricuspid valve insufficiency. Pulmonary artery systolic pressure is 55 mmHg. Moderate pulmonary hypertension. Pulmonic Valve Normal pulmonic valve. Great Vessels Normal aortic root. The pulmonary artery is normal size. Normal inferior vena cava. Pericardium/Pleural No pericardial effusion. MMode/2D Measurements & Calculations LVIDd: 5.0 cm IVSd: 0.98 cm Ao root diam: 4.2 cm LVIDs: 3.6 cm LVPWd: 0.88 cm RVDd: 5.5 cm FS: 28.8 % LAV(MOD-bp): 66.3 ml LA A4 area: 21.9 cm2 LA dimension(2D): 3.5 cm LAV(MOD-bp) Indexed: 30.1 ml/m2 LAV(MOD-sp2): 62.2 ml LAV(MOD-sp4): 65.9 ml RA A4 area: 19.8 cm2 Time Measurements MV dec time: 0.28 sec Doppler Measurements & Calculations MV E max arvind: 63.9 cm/sec Lat Peak E' Arvind: 6.6 cm/sec Med Peak E' Arvind: 8.3 cm/sec MV A max arvind: 86.5 cm/sec E/E' lat: 9.6 E/E' med: 7.7 MV E/A: 0.74 Ao V2 max: 138.6 cm/sec LV V1 max: 119.8 cm/sec PA V2 max: 82.1 cm/sec Ao max P.7 mmHg LV V1 max P.7 mmHg TR max arvind: 361.3 cm/sec TR max P.5 mmHg Interpretation Summary Normal LV size. Left ventricular systolic function is lower limits of normal. Moderately dilated right ventricle. Mild to moderate global right ventricular systolic dysfunction. Moderate (2+) tricuspid valve insufficiency. Moderate pulmonary hypertension. Ordering Physician: Cb Johnson Referring Physician: Claudia Craig Performed By: Anusha Stone, ANEESHCS, RVT
--- NOTE | 2019-08-19 10:36 | CON.PCM_ITS ---
Reason for Consult Date of Consultation: 08/19/19 Reason for Consultation: Pulmonary emboli History of Present Illness: The patient is a 74-year-old female, with a history is outlined below, who presented to the emergency department on August 17 with complaints of shortness of breath. The patient was just discharged from the hospital on July 25 after having been admitted for several days in the setting of chest pain and non-ST segment elevation [place]. The patient did undergo cardiac evaluation with catheterization which revealed only mild coronary artery disease. Ejection fraction was noted to be 55%. Medical management was employed. The patient denies any known history of venous thromboembolic disease. She has no personal history of malignancy. She denies recent immobility or prolonged travel. Nevertheless, she does admit that she had a hip replacement in March 2019, with perioperative immobility issues. On presentation to the emergency department, the patient was noted to be afebrile and hemodynamically stable. She was maintaining appropriate oxygen saturations on room air. Laboratory evaluation revealed a mildly elevated white blood cell count to 13,000. D-dimer was elevated to 4.6. Potassium was low at 3.2. Troponin was negative. BNP was only mildly elevated to 131. A CTA chest was obtained which revealed multiple segmental and subsegmental pulmonary emboli bilaterally. Past Medical History Past Medical History (Chronic Problems): Chronic Problems (Last Reviewed 08/13/19 @ 14:[address] Harvinder Mejia MD) Nonobstructive atherosclerosis of coronary artery (Chronic) Essential (primary) hypertension (Chronic) Medical History: Medical History (Last Reviewed 08/13/19 @ 14:[address] Harvinder Mejia MD) Nonobstructive atherosclerosis of coronary artery (Chronic) I25.10 History of non-ST elevation myocardial infarction (NSTEMI) (Resolved) Onset Date: 07/25/19 I25.2 Essential (primary) hypertension (Chronic) I10 Chronic obstructive pulmonary disease (COPD) J44.9 bilateral hip replacement Former tobacco use Z87.891 Obesity (BMI 30-39.9) E66.9 Allergies fenoprofen [From Nalfon] Allergy (Verified 08/18/19 14:09) Swelling tolmetin [From Tolectin] Allergy (Verified 08/18/19 14:09) Swelling Home Medications: Ambulatory Orders Medication Instructions Recorded Umeclidinium Brm/Vilanterol Tr 1 puff INHALATION DAILY 07/25/19 [Anoro Ellipta 62.5-25 Mcg INH] Aspirin [Aspirin, Baby] 81 mg PO DAILY@0800 #90 tab.chew 07/26/19 Nitroglycerin (INPATIENT USE) 0.4 mg SUBLINGUAL Q5M PRN #30 07/26/19 [Nitrostat] tab.subl atorvastatin 40 mg tablet 40 mg PO QHS #90 tab 08/13/19 hydrochlorothiazide 25 mg tablet 25 mg PO DAILY #90 tab 08/13/19 lisinopril 5 mg tablet 2.5 mg PO DAILY #30 tab 08/13/19 metoprolol succinate 25 mg 25 mg PO DAILY #60 tab 08/13/19 tablet,extended release 24 hr Apixaban [Eliquis] 5 mg PO BID #42 tab 08/19/19 Apixaban [Eliquis] 10 mg PO BID #28 tab 08/19/19 Surgical History: Surgical History (Last Reviewed 08/13/19 @ 14:[address] Harvinder Mejia MD) History of ankle surgery Z98.890 History of carpal tunnel release Z98.890 History of gastric bypass Z98.84 History of hip surgery Z98.890 History of left heart catheterization Onset Date: 07/25/19 Z98.890 Surgical History: - - Bilateral total hip replacement, right ankle surgery, right carpal tunnel release, left hand surgery, gastric bypass. Psychiatric History: No pertinent psych hx [employer] History: No pertinent [employer] history Lives: Spouse/ Significant Other Smoking Status: Former smoker - *Family History Maternal Family History: Family History (Last Reviewed 08/13/19 @ 14:[address] Harvinder Mejia MD) Mother Heart disease Father Heart disease History Items: Heart Disease, Pulmonary Disease Paternal Family History: Family History (Last Reviewed 08/13/19 @ 14:[address] Harvinder Mejia MD) Mother Heart disease Father Heart disease History Items: Heart Disease Review of Systems Constitutional: Denies: Chills, Fever, Night Sweats Eyes: Denies: Blurred vision, Double vision HEENT: Denies: Head Aches, Sinus Congestion, Sinus Drainage Cardiovascular: Reports: Edema Respiratory: Reports: Pleuritic Pain, Shortness of Breath. Denies: Sputum production Gastrointestinal: Denies: Abdominal Pain, Nausea, Vomiting Genitourinary: Denies: Dysuria Musculoskeletal: Denies: Joint Pain, Joint Tenderness Skin: Denies: Rash, Wounds Neurological: Denies: Numbness, Tingling, Focal weakness Psychiatric: Denies: Anxiety, Depression, Homicidal Ideations, Suicidal Ideations Hematologic/ Lymphatic: Denies: Easy Bruising, Easy Bleeding, Hx of blood clot Objective: The patient's most recent lab work, culture data and imaging studies have all been personally reviewed. - Physical Exam Vitals/I&O's: Vital Signs Temp Pulse Resp BP Pulse Ox 98.1 F 76 18 111/61 97 08/19/19 09:57 08/19/19 09:57 08/19/19 09:57 08/19/19 09:57 08/19/19 09:57 Oxygen Delivery Method Room Air Weight: 245 lb 5.992 oz Body Mass Index (BMI) 38.7 Intake and Output for Last 24 Hours 08/17/19 08/18/19 08/19/19 23:59 23:59 23:59 Intake Total 1035 / 1035 290 / 290 Balance 1035 / 1035 290 / 290 General: Alert, Oriented x3, Cooperative, No apparent distress HEENT: Atraumatic, PERRLA, Normocephalic Oral: No Gingival or Mucosal Lesions/ Ulcerations Neck: Supple, No Nodes, Trachea Midline Lungs: Normal air movement, No rhonchi, No wheeze, No rales Cardiovascular: Regular rate, Regular Rhythm, Normal S1, Normal S2 Abdomen: Bowel Sounds Present, Soft, Non Tender, Obese Extremities: No clubbing, No cyanosis, Edema Skin: No breakdown Musculoskeletal: No Muscle Wasting Lymphatic: No Cervical, Supraclavicular, or Inguinal Adenopathy Neurological: Cranial nerves II-XII grossly intact, Neuro grossly intact Psych/Mental Status: Normal Affect, Appropriate Labs (Last 48 Hours) 08/18/19 08/18/19 08/18/19 14:35 14:35 14:35 WBC 13.6 H RBC 4.65 Hgb 13.2 Hct 40.5 MCV 87.1 MCH 28.4 MCHC 32.6 RDW Std Deviation 46.1 H RDW Coeff of Nicky 14.4 Plt Count 182 MPV 11.1 Immature Gran % (Auto) 0.200 Neut % (Auto) 84.3 H Lymph % (Auto) 5.4 L Gallia % (Auto) 9.9 Eos % (Auto) 0.1 Baso % (Auto) 0.1 Absolute Neuts (auto) 11.4 H Absolute Lymphs (auto) 0.73 L Nucleated RBC % 0 D-Dimer Quant (PE/DVT) 4.61 H* Sodium 139 Potassium 3.2 L Chloride 104 Carbon Dioxide 29.0 Anion Gap 6 BUN 20 H Creatinine 0.84 Estim Creat Clear Calc 57.14 Est GFR (MDRD) Af Amer 86 Est GFR (MDRD) Non-Af 71 BUN/Creatinine Ratio 23.9 H Glucose 135 H Calcium 9.1 Troponin I < 0.015 B-Natriuretic Peptide 08/18/19 14:35 WBC RBC Hgb Hct MCV MCH MCHC RDW Std Deviation RDW Coeff of Nicky Plt Count MPV Immature Gran % (Auto) Neut % (Auto) Lymph % (Auto) Gallia % (Auto) Eos % (Auto) Baso % (Auto) Absolute Neuts (auto) Absolute Lymphs (auto) Nucleated RBC % D-Dimer Quant (PE/DVT) Sodium Potassium Chloride Carbon Dioxide Anion Gap BUN Creatinine Estim Creat Clear Calc Est GFR (MDRD) Af Amer Est GFR (MDRD) Non-Af BUN/Creatinine Ratio Glucose Calcium Troponin I B-Natriuretic Peptide 131.2 H Microbiology 08/18/19 19:35 Urine, Clean Catch Streptococcus pneumoniae Antigen (M - Final 08/18/19 19:35 Urine, Clean Catch Legionella Antigen - Final Clinical Impression(s) from Imaging Studies Chest X-Ray 08/18/19 14:32 IMPRESSION: Left lower lobe airspace disease and small layering effusion concerning for acute infiltrate in the appropriate clinical setting. Electronically Signed: Grzegorz Hernandes DO at 15:26 EDT , Service support , Chest CTA 08/18/19 15:15 IMPRESSION: Multiple segmental and subsegmental pulmonary emboli in the right upper lobe and bilateral lower lobes with the left lower lobe emboli being nearly occlusive in nature. Groundglass opacity in the left lower lobe which is more pronounced peripherally. Given the large amount of pulmonary emboli in this distribution, this likely represents developing pulmonary infarcts. Small left pleural effusion. Small pericardial effusion. Electronically Signed: Vladimir Carson, at 15:56 EDT Tel , Service support , ADDENDUM: 08/18/19 1609 IMPRESSION: Multiple segmental and subsegmental pulmonary emboli in the right upper lobe and bilateral lower lobes with the left lower lobe emboli being nearly occlusive in nature. Groundglass opacity in the left lower lobe which is more pronounced peripherally. Given the large amount of pulmonary emboli in this distribution, this likely represents developing pulmonary infarcts. Small left pleural effusion. Small pericardial effusion. N.B. : The above information has been verbally conveyed by Vladimir Carson to Barak Rizo MD, on 08/18/2019 16:02:01 (ET). Electronically Signed: Vladimir Carson, at 15:56 EDT Tel , Service support , Current Medications Acetaminophen (Tylenol) 650 mg PO Q6H PRN PRN PRN Reason: Pain Score 1-10/Temp > 100.7 F Albuterol Sulfate (Ventolin Aerosols) 2.5 mg INHALATION Q2H PRN PRN PRN Reason: SOB/Wheezing Albuterol/Ipratropium (Duoneb) 3 ml INHALATION Q6HWA.RT [facility] Last Admin: 08/19/19 06:50 Dose: 3 ml Documented by: Aspirin (Aspirin, Baby) 81 mg PO DAILY@0800 [facility] Last Admin: 08/19/19 09:25 Dose: 81 mg Documented by: Atorvastatin Calcium (Lipitor) 40 mg PO QHS [facility] Last Admin: 08/18/19 22:05 Dose: 40 mg Documented by: Dextrose (D50w Syringe) 0 gm IV X1 PRN; Protocol PRN Reason: Hypoglycemia Enoxaparin Sodium (Lovenox) 110 mg SC Q12@0600,1800 [facility] Last Admin: 08/19/19 06:01 Dose: 110 mg Documented by: Glucagon () 1 mg IM .X1 PRN PRN Reason: Hypoglycemia Guaifenesin (Robitussin) 20 ml PO Q4H PRN PRN PRN Reason: COUGH Hydrochlorothiazide (Hctz) 25 mg PO DAILY [facility] Last Admin: 08/19/19 09:25 Dose: 25 mg Documented by: Ceftriaxone Sodium (Rocephin) 1 gm in 50 mls @ 100 mls/hr IV Q24 [facility] Last Infusion: 08/19/19 09:58 Dose: Infused Documented by: Azithromycin 500 mg/ Dextrose 255 mls @ 250 mls/hr IV Q24 [facility] Last Admin: 08/19/19 10:08 Dose: 250 mls/hr Documented by: Sodium Chloride () 250 mls @ 15 mls/hr IV .[id number] PRN PRN Reason: Saline Flush Sodium Chloride () 250 mls @ 15 mls/hr IV .[id number] PRN PRN Reason: Additional IVPB Infusion Iopamidol (Contrast Allergy Check) 0 ml IV X1 [facility] Lisinopril (Zestril) 2.5 mg PO DAILY [facility] Last Admin: 08/19/19 09:26 Dose: 2.5 mg Documented by: Metoprolol Succinate (Toprol Xl (Beta Corky)) 25 mg PO DAILY [facility] Last Admin: 08/19/19 09:26 Dose: 25 mg Documented by: Nitroglycerin (Nitrostat) 0.4 mg SUBLINGUAL Q5M PRN PRN Reason: CARDIAC/CHEST PAIN Ondansetron HCl (Zofran) 4 mg IV Q8H PRN PRN PRN Reason: NAUSEA/VOMITING Psyllium Hydrophilic Mucilloid (Metamucil) 1 packet PO DAILY PRN PRN PRN Reason: Constipation Senna/Docusate Sodium (Senokot-S, Mandi-Colace) 2 tablet PO BID PRN PRN PRN Reason: Constipation Sodium Chloride () 10 - 40 ml IV UD PRN PRN Reason: SALINE FLUSH Assessment/Plan All Active Problems (Last Reviewed 08/13/19 @ 14:[address] Harvinder Mejia MD) History of non-ST elevation myocardial infarction (NSTEMI) (Resolved 07/25/19) Chest pain (Resolved) RECOMMENDATIONS: 1. Okay to transition from Lovenox to either Xarelto or Eliquis, depending on insurance coverage. 2. Perform walking oximetry study prior to consideration for discharge home. 3. Given that the patient is without any systemic signs or complaints to suggest pneumonia, antibiotics can be discontinued. 4. Follow-up in the pulmonary medicine clinic within 1 month of discharge from the hospital. IMPRESSIONS: 1. Acute bilateral pulmonary emboli Likely precipitated by left lower extremity DVT. The patient does report a previous history of relative immobility during the time of a hip replacement. At this time, the patient is maintaining appropriate oxygen saturations on room air. She can be transition from Lovenox to either Eliquis or Xarelto from my perspective. I would recommend that we perform a walking oximetry study prior to consideration for discharge home. The patient will need to be maintained on systemic anticoagulation with plans to follow-up in the pulmonary medicine clinic. 2. Nonobstructive coronary artery disease/COPD/hypertension/obesity Complicates care, management, recovery and prognosis. Continue home medications as indicated. This note was generated with [employer] dictation software. It may contain incorrect words, spelling, and punctuation that were not noted in checking the note before signing. Inpatient E&M: 14261 Init Hosp L3
--- NOTE | 2019-08-19 11:29 | PCM.DC ---
You will use the following diet at home:: Cardiac Your food should be the consistency of: Regular Your liquids should be the consistency of: Regular/Thin Discharge Activity: Return to Normal Activity Allergies/Adverse Reactions: Allergies fenoprofen [From Nalfon] Allergy (Verified 08/18/19 14:09) Swelling tolmetin [From Tolectin] Allergy (Verified 08/18/19 14:09) Swelling Medications to take at Discharge Umeclidinium Brm/Vilanterol Tr [Anoro Ellipta 62.5-25 Mcg INH] 1 puff INHALATION DAILY 07/25/19 Aspirin [Aspirin, Baby] 81 mg PO DAILY@0800 #90 tab.chew 07/26/19 Nitroglycerin (INPATIENT USE) [Nitrostat] 0.4 mg SUBLINGUAL Q5M PRN #30 tab.subl 07/26/19 atorvastatin 40 mg tablet 40 mg PO QHS #90 tab 08/13/19 hydrochlorothiazide 25 mg tablet 25 mg PO DAILY #90 tab 08/13/19 lisinopril 5 mg tablet 2.5 mg PO DAILY #30 tab 08/13/19 metoprolol succinate 25 mg tablet,extended release 24 hr 25 mg PO DAILY #60 tab 08/13/19 Apixaban [Eliquis] 5 mg PO BID #42 tab 08/19/19 Apixaban [Eliquis] 10 mg PO BID #28 tab 08/19/19 The following prescriptions were given: Apixaban [Eliquis] 10 mg PO BID #28 tab Transmission Status: Pending to [facility]/pharmacy #[id number] Apixaban [Eliquis] 5 mg PO BID #42 tab Transmission Status: Pending to [facility]/pharmacy #[id number] Primary Care Physician: Claudia Craig DO [Primary Care Provider] - Please follow up with your Primary Care Physician in: 1-2 weeks Test Results: Test results from this visit will be discussed in further detail at your follow-up appointment, if applicable. Please Follow Up With: Claude Daily DO When: 2-3 weeks Proposed Discharge Date: 08/19/19
--- NOTE | 2019-08-19 12:00 | CASEMGMT ---
Addendum entered by Emma Lauren 08/19/19 14:23: Respiratory therapist up to his RN CM stating that she just ambulated pt in hallway and was 80% and pt now qualifies for home oxygen at this time. Pt is agreeable to [facility] at this time as they have a [place] office that can deliver to pt's home in [place]. Referral faxed to [facility] at this time and Jessica at [facility] aware of referral at this time. Pt will need 4liters with ambulation/exertion. Pt states no further questions/concerns/needs at this time. Abdirizak OWENS CM Original Note: Readmission chart review: Pt was initially direct admitted from [facility] 07/23-07/26/2019 for NSTEMI/Chest pain. Pt had a heart cath which showed EF 55% and less than 30% mid RCA stenosis. Pt was discharged but c/o SOB, progressively worse since discharge. Pt also c/o bilat leg swelling. Pt returned 08/18/2019 to [facility] ED for increased SOB, no pain or discomfort. CTA chest revealed Multiple segmental and subsegmental pulmonary emboli in the right upper lobe and bilateral lower lobes with left lobe emboli being nearly occlusive in nature. Pt's pulse staying 92% and greater on room air since admission. Pt does not qualify for home oxygen at this time. Pt to be sent home on eliquis at discharge and med e-scribed to [facility] previously. Call to [facility] pharmacy and states pt's monthly co-pay for Eliquis 5mg twice daily will be $32.89, but states that pt's initial script for 10mg twice daily for 7 days will be $263. Per pharmacy picking tech, Eliquis 30day free trial card cannot be used for this but this RN CM has had pharmacies use this in the past. Pt is updated on all at this time and provided with 30 day free trial card, voices understanding. Pt states no concerns with going home at time of discharge and states no further needs at this time. Anya GARCIA updated, voices understanding. Pt is in no distress at this time. Pt had just been to bathroom and respirations are easy, unlabored. Abdirizak OWENS CM
--- NOTE | 2019-08-19 13:55 | DS.PCM_ITS ---
<Luis Sultana - Last Filed: 08/19/19 14:12> Discharge Date and Diagnosis Date of Admission: 08/18/19 Date of Discharge: 08/19/19 - Primary Discharge Diagnosis Pulmonary emboli with associated pulmonary infarct Pneumonia ruled out HTN COPD no exacerbation Morbid obesity - Secondary Discharge Diagnosis Chronic Problems (Last Reviewed 08/13/19 @ 14:[address] Harvinder Mejia MD) Nonobstructive atherosclerosis of coronary artery (Chronic) Essential (primary) hypertension (Chronic) Hospital Course and Treatment Imaging Results: IMAGIN08/19/19 10:30 Echo Complete W/ Contrast [ECHO] Routine Pending. RAD/Chest 1 View (Portable) IMPRESSION: Left lower lobe airspace disease and small layering effusion concerning for acute infiltrate in the appropriate clinical setting. CT/CTA Chest W/WO Contrast IMPRESSION: Multiple segmental and subsegmental pulmonary emboli in the right upper lobe and bilateral lower lobes with the left lower lobe emboli being nearly occlusive in nature. Groundglass opacity in the left lower lobe which is more pronounced peripherally. Given the large amount of pulmonary emboli in this distribution, this likely represents developing pulmonary infarcts. Small left pleural effusion. Small pericardial effusion. Consults: Killian - Pulmonary Operations: None Procedures: 2-D Echocardiogram Summary of Care Provided: Hospital Course: The patient is a 74 year old F with pmhx of NSTEMI with minimal occlusive dz, recent total hip in March, COPD, obesity, who presented to the ER with cc/o 1 week of SOB. She was discharged 07/26/19 after being seen for NSTEMI during which time a heart cath showed 30% mid RCA stenosis. She had continued to be SOB since. She also had BL LE swelling. She had noticed LLE swelling about a month after her hip surgery. She was found to have elevated D dimer and a follow up CTA showed multiple PEs bilaterally and pulmonary infarct. She was started on lovenox and also abx as she had an elevated WBC count and there was concern for possible underlying infiltrate. Pulmonary medicine was consulted. The following day she had no symptoms. She was transitioned to eliquis. She underwent an echo which is pending. LE duplex venous US showed DVTs. She was discharged home in stable condition. Abx were DCd as pneumonia was ruled out. She will follow up with pulmonary medicine in 2-3 weeks. She will also need to follow up with her PCP in 1-2 weeks. This patient was seen by Luis Sultana PA-C under the supervision of Dr. Johnson. [] - Physical Exam Vitals/I&O's: Vital Signs Temp Pulse Resp BP Pulse Ox 98.1 F 76 18 111/61 98 08/19/19 09:57 08/19/19 09:57 08/19/19 09:57 08/19/19 09:57 08/19/19 11:30 Oxygen Delivery Method Room Air Weight: 245 lb 5.992 oz Body Mass Index (BMI) 38.7 Intake and Output for Last 24 Hours 08/17/19 08/18/19 08/19/19 23:59 23:59 23:59 Intake Total 1035 / 1035 1025 / 1025 Balance 1035 / 1035 1025 / 1025 General: Alert, Oriented x3, Cooperative HEENT: Atraumatic, PERRLA, EOMI, Normocephalic Neck: Supple, No JVD, Negative Carotid Bruits Lungs: Clear to auscultation, Normal air movement Cardiovascular: Regular rate, No murmurs Abdomen: Bowel Sounds Present, Soft, Non Tender Extremities: No edema, Capillary Refill Less than 3 Seconds Skin: No rashes, No breakdown Musculoskeletal: No Tenderness to Palpation of Joints or Extremities Neurological: Cranial nerves II-XII grossly intact Psych/Mental Status: Normal Affect, Appropriate, Alert and oriented to time, place, person, mood and affect Microbiology Past 72 Hours 08/18/19 19:35 Urine, Clean Catch Streptococcus pneumoniae Antigen (M - Final 08/18/19 19:35 Urine, Clean Catch Legionella Antigen - Final Laboratory Results 08/18/19 14:35: WBC 13.6 H, RBC 4.65, Hgb 13.2, Hct 40.5, MCV 87.1, MCH 28.4, MCHC 32.6, RDW Std Deviation 46.1 H, RDW Coeff of Nicky 14.4, Plt Count 182, MPV 11.1, Immature Gran % (Auto) 0.200, Neut % (Auto) 84.3 H, Lymph % (Auto) 5.4 L, Eaton % (Auto) 9.9, Eos % (Auto) 0.1, Baso % (Auto) 0.1, Absolute Neuts (auto) 11.4 H, Absolute Lymphs (auto) 0.73 L, Nucleated RBC % 0 08/18/19 14:35: D-Dimer Quant (PE/DVT) 4.61 H* 08/18/19 14:35: Sodium 139, Potassium 3.2 L, Chloride 104, Carbon Dioxide 29.0, Anion Gap 6, BUN 20 H, Creatinine 0.84, Estim Creat Clear Calc 57.14, Est GFR (MDRD) Af Amer 86, Est GFR (MDRD) Non-Af 71, BUN/Creatinine Ratio 23.9 H, Glucose 135 H, Calcium 9.1, Troponin I < 0.015 08/18/19 14:35: B-Natriuretic Peptide 131.2 H Current Medications Acetaminophen (Tylenol) 650 mg PO Q6H PRN PRN PRN Reason: Pain Score 1-10/Temp > 100.7 F Albuterol Sulfate (Ventolin Aerosols) 2.5 mg INHALATION Q2H PRN PRN PRN Reason: SOB/Wheezing Albuterol/Ipratropium (Duoneb) 3 ml INHALATION Q6HWA.RT [facility] Last Admin: 08/19/19 06:50 Dose: 3 ml Documented by: Aspirin (Aspirin, Baby) 81 mg PO DAILY@0800 [facility] Last Admin: 08/19/19 09:25 Dose: 81 mg Documented by: Atorvastatin Calcium (Lipitor) 40 mg PO QHS [facility] Last Admin: 08/18/19 22:05 Dose: 40 mg Documented by: Dextrose (D50w Syringe) 0 gm IV X1 PRN; Protocol PRN Reason: Hypoglycemia Enoxaparin Sodium (Lovenox) 110 mg SC Q12@0600,1800 [facility] Last Admin: 08/19/19 06:01 Dose: 110 mg Documented by: Glucagon () 1 mg IM .X1 PRN PRN Reason: Hypoglycemia Guaifenesin (Robitussin) 20 ml PO Q4H PRN PRN PRN Reason: COUGH Hydrochlorothiazide (Hctz) 25 mg PO DAILY [facility] Last Admin: 08/19/19 09:25 Dose: 25 mg Documented by: Ceftriaxone Sodium (Rocephin) 1 gm in 50 mls @ 100 mls/hr IV Q24 [facility] Last Infusion: 08/19/19 09:58 Dose: Infused Documented by: Azithromycin 500 mg/ Dextrose 255 mls @ 250 mls/hr IV Q24 [facility] Last Infusion: 08/19/19 11:28 Dose: Infused Documented by: Sodium Chloride () 250 mls @ 15 mls/hr IV .[id number] PRN PRN Reason: Saline Flush Sodium Chloride () 250 mls @ 15 mls/hr IV .[id number] PRN PRN Reason: Additional IVPB Infusion Lisinopril (Zestril) 2.5 mg PO DAILY [facility] Last Admin: 08/19/19 09:26 Dose: 2.5 mg Documented by: Metoprolol Succinate (Toprol Xl (Beta Corky)) 25 mg PO DAILY [facility] Last Admin: 08/19/19 09:26 Dose: 25 mg Documented by: Nitroglycerin (Nitrostat) 0.4 mg SUBLINGUAL Q5M PRN PRN Reason: CARDIAC/CHEST PAIN Ondansetron HCl (Zofran) 4 mg IV Q8H PRN PRN PRN Reason: NAUSEA/VOMITING Psyllium Hydrophilic Mucilloid (Metamucil) 1 packet PO DAILY PRN PRN PRN Reason: Constipation Senna/Docusate Sodium (Senokot-S, Mandi-Colace) 2 tablet PO BID PRN PRN PRN Reason: Constipation Sodium Chloride () 10 - 40 ml IV UD PRN PRN Reason: SALINE FLUSH Discharge Diet: Low fat/ Low Cholesterol, 2000 mg Sodium Diet Discharge Activity: Return to Normal Activity Home Medications: Medications to take at Discharge Umeclidinium Brm/Vilanterol Tr [Anoro Ellipta 62.5-25 Mcg INH] 1 puff INHALATION DAILY 07/25/19 Aspirin [Aspirin, Baby] 81 mg PO DAILY@0800 #90 tab.chew 07/26/19 Nitroglycerin (INPATIENT USE) [Nitrostat] 0.4 mg SUBLINGUAL Q5M PRN #30 tab.subl 07/26/19 atorvastatin 40 mg tablet 40 mg PO QHS #90 tab 08/13/19 hydrochlorothiazide 25 mg tablet 25 mg PO DAILY #90 tab 08/13/19 lisinopril 5 mg tablet 2.5 mg PO DAILY #30 tab 08/13/19 metoprolol succinate 25 mg tablet,extended release 24 hr 25 mg PO DAILY #60 tab 08/13/19 Apixaban [Eliquis] 5 mg PO BID #42 tab 08/19/19 Apixaban [Eliquis] 10 mg PO BID #28 tab 08/19/19 Following Prescrptions Were Given to Patient: Apixaban [Eliquis] 10 mg PO BID #28 tab Transmission Status: Received by [id number] Apixaban [Eliquis] 5 mg PO BID #42 tab Transmission Status: Received by [id number] Primary Care Physician: Claudia Craig DO [Primary Care Provider] - Please follow up with your Primary Care Physician in: 1-2 weeks Please Follow Up With: Claude Daily DO When: 2-3 weeks Disposition: Home Minutes spent on discharge:: 35 Patient Condition:: Stable Medical Necessity - Tobacco Use Smoking Status: Former smoker Meaningful Use Info Meaningful Use Diagnoses (Choose all that apply): VTE - VTE Anticoag overlap given w/in hospital stay or rx'd at dc?: No Pt receive overlap for 5 days?: No Reason overlap not ordered, prescribed, or given for 5 days: Procedure Not Indicated <Cb Johnson - Last Filed: 08/19/19 17:55> Discharge Date and Diagnosis - Secondary Discharge Diagnosis Chronic Problems (Last Reviewed 08/13/19 @ 14:[address] Harvinder Mejia MD) Nonobstructive atherosclerosis of coronary artery (Chronic) Essential (primary) hypertension (Chronic) Hospital Course and Treatment Imaging Results: 08/19/19 10:30 Echo Complete [ECHO] Routine Summary of Care Provided: This patient was seen in conjunction with Luis DOAN. I have independently interviewed and examined the patient and reviewed pertinent history, examination findings, laboratory and plan of management. I have reviewed the note and agree with the documented findings with the few additional points. In brief, patient is 74-year-old female with history of non-STEMI, recent left total hip replacement in March 2019, COPD admitted with progressive worsening of shortness of for 1 week. Patient was on DVT prophylaxis in the perioperative for about 2-3 weeks as per patient but no documentary evidence available as it was done outside hospital. Patient also found left lower extremity swelling with blood clot from groin to ankle. CTPA shows multiple PE bilaterally and pulmonary infarct. Patient started on Lovenox. Senior Applications Architect consulted. BNP elevated. Troponin normal. Lovenox transitioned to Eliquis. Patient is discharged on Eliquis and advised to continue for 6 months. She does not have any family history of hypercoagulable disorder. 2D echo reported as mentioned below Interpretation Summary Normal LV size. Left ventricular systolic function is lower limits of normal. Moderately dilated right ventricle. Mild to moderate global right ventricular systolic dysfunction. Moderate (2+) tricuspid valve insufficiency. Moderate pulmonary hypertension. Diagnosis: Bilateral acute pulmonary emboli with acute cor pulmonale: Moderately dilated RV with mild to moderate global RV systolic dysfunction and 2+ TR. Discharge medication reconciliation done. Discharge follow-up instructions completed. Discharge process discussed with the patient and all questions were answered to patient's satisfaction. Follow-up pulmonary clinic in 2 weeks Total time spent, exact 35 minutes on discharge meds reconciliation, examination, coordination of care with nurses and ancillary staff, review of imaging and blood test and discussion with the patient on follow-up instructions I have discussed my assessment with Luis DOAN and orders have been reviewed. [] Subjective: Seen and examined. Patient does not have chest pain, pressure or shortness of breath. Heart rate is controlled. BNP elevated. - Physical Exam Vitals/I&O's: Vital Signs Temp Pulse Resp BP Pulse Ox 98.1 F 92 20 H 111/61 95 08/19/19 09:57 08/19/19 14:21 08/19/19 14:21 08/19/19 09:57 08/19/19 14:24 Oxygen Flow Rate (L/min) [ 4 AMBULATION with Oxygen] Oxygen Flow Rate (L/min) 4 Oxygen Delivery Method Nasal Cannula Weight: 245 lb 5.992 oz Body Mass Index (BMI) 38.7 Intake and Output for Last 24 Hours 08/17/19 08/18/19 08/19/19 23:59 23:59 23:59 Intake Total 1035 / 1035 1025 / 1025 Balance 1035 / 1035 1025 / 1025 General: Alert, Oriented x3, Cooperative HEENT: Atraumatic, PERRLA, EOMI, Normocephalic Neck: Supple, No JVD, Negative Carotid Bruits Lungs: Clear to auscultation, Normal air movement Cardiovascular: Regular rate, Regular Rhythm, Normal S1, Normal S2, No murmurs Abdomen: Bowel Sounds Present, Soft, Non Tender Extremities: No edema, Capillary Refill Less than 3 Seconds Skin: No rashes, No breakdown Musculoskeletal: No Tenderness to Palpation of Joints or Extremities, Arthritic Changes Neurological: Cranial nerves II-XII grossly intact, Deep Tendon Reflexes 2+/4 and Symmetrical, Neuro grossly intact Psych/Mental Status: Normal Affect, Appropriate Microbiology Past 72 Hours 08/18/19 19:35 Urine, Clean Catch Streptococcus pneumoniae Antigen (M - Final 08/18/19 19:35 Urine, Clean Catch Legionella Antigen - Final Current Medications Acetaminophen (Tylenol) 650 mg PO Q6H PRN PRN PRN Reason: Pain Score 1-10/Temp > 100.7 F Albuterol Sulfate (Ventolin Aerosols) 2.5 mg INHALATION Q2H PRN PRN PRN Reason: SOB/Wheezing Albuterol/Ipratropium (Duoneb) 3 ml INHALATION Q6HWA.RT [facility] Last Admin: 08/19/19 14:21 Dose: 3 ml Documented by: Aspirin (Aspirin, Baby) 81 mg PO DAILY@0800 [facility] Last Admin: 08/19/19 09:25 Dose: 81 mg Documented by: Atorvastatin Calcium (Lipitor) 40 mg PO QHS [facility] Last Admin: 08/18/19 22:05 Dose: 40 mg Documented by: Dextrose (D50w Syringe) 0 gm IV X1 PRN; Protocol PRN Reason: Hypoglycemia Enoxaparin Sodium (Lovenox) 110 mg SC Q12@0600,1800 [facility] Last Admin: 08/19/19 06:01 Dose: 110 mg Documented by: Glucagon () 1 mg IM .X1 PRN PRN Reason: Hypoglycemia Guaifenesin (Robitussin) 20 ml PO Q4H PRN PRN PRN Reason: COUGH Hydrochlorothiazide (Hctz) 25 mg PO DAILY [facility] Last Admin: 08/19/19 09:25 Dose: 25 mg Documented by: Ceftriaxone Sodium (Rocephin) 1 gm in 50 mls @ 100 mls/hr IV Q24 [facility] Last Infusion: 08/19/19 09:58 Dose: Infused Documented by: Azithromycin 500 mg/ Dextrose 255 mls @ 250 mls/hr IV Q24 [facility] Last Infusion: 08/19/19 11:28 Dose: Infused Documented by: Sodium Chloride () 250 mls @ 15 mls/hr IV .[id number] PRN PRN Reason: Saline Flush Sodium Chloride () 250 mls @ 15 mls/hr IV .[id number] PRN PRN Reason: Additional IVPB Infusion Lisinopril (Zestril) 2.5 mg PO DAILY [facility] Last Admin: 08/19/19 09:26 Dose: 2.5 mg Documented by: Metoprolol Succinate (Toprol Xl (Beta Corky)) 25 mg PO DAILY [facility] Last Admin: 08/19/19 09:26 Dose: 25 mg Documented by: Nitroglycerin (Nitrostat) 0.4 mg SUBLINGUAL Q5M PRN PRN Reason: CARDIAC/CHEST PAIN Ondansetron HCl (Zofran) 4 mg IV Q8H PRN PRN PRN Reason: NAUSEA/VOMITING Psyllium Hydrophilic Mucilloid (Metamucil) 1 packet PO DAILY PRN PRN PRN Reason: Constipation Senna/Docusate Sodium (Senokot-S, Mandi-Colace) 2 tablet PO BID PRN PRN PRN Reason: Constipation Sodium Chloride () 10 - 40 ml IV UD PRN PRN Reason: SALINE FLUSH Inpatient E&M: 24191 Disch Hosp
== END 2019-08-19 19:20 | disposition home or self-care (01) | DRG 175 ==
LOC: ED 14:41 → PCU 17:53
PROVIDERS: Admitting Provider Internal Medicine; Emergency Provider Emergency Medicine; Visit Provider Internal Medicine
DX: I26.09 Other pulmonary embolism with acute cor pulmonale (principal); I10 Essential (primary) hypertension; J44.9 Chronic obstructive pulmonary disease, unspecified; E66.01 Morbid (severe) obesity due to excess calories; I25.10 Atherosclerotic heart disease of native coronary artery without angina pectoris; I25.2 Old myocardial infarction; Z87.891 Personal history of nicotine dependence; Z98.84 Bariatric surgery status
CPT/HCPCS: 71045; 71275; 80048; 83880; 84484; 85025; 85379; 87040; 87449; 93005; 93306; 93970; 94640; 96374; 97162; 97166; 97802; 99251; 99285; J7040; Q9957; Q9967; A4216; G0463

== ENCOUNTER → 2019-09-16 10:56 | Outpatient (CLI) | payer MEDICARE, OTHER, SELFPAY ==
[2019-08-18 17:59] VITALS: BMI 38.7
== END ==
PROVIDERS: Referring Provider Nurse Practitioner Family; Visit Provider Nurse Practitioner Family
DX: R00.2 Palpitations (principal)
CPT/HCPCS: 93225; 93226

== ENCOUNTER → 2019-10-08 10:37 | Outpatient (CLI) | payer MEDICARE, OTHER, SELFPAY ==
[2019-08-18 17:59] VITALS: BMI 38.7
--- NOTE | 2019-10-08 10:41 | VDLE_ITS ---
Reason For Study: F/U DVT Procedure LEFT Exam performed in department. GSV is normal. CFV is compressible, spontaneous, phasic, competent, and demonstrates normal augmentation. LT PerV is compressible. POP V &T/P Trunk remain dilated and noncompressible. PTV appear partially compressible, NOT well visualized. Gastrocnemius V remains noncompressible. Interpretation Summary Acute deep vein thrombosis is noted in the left femoral vein. Acute deep vein thrombosis is noted in the left popliteal vein. Acute deep vein thrombosis is noted in the left tibio-peroneal trunk. Acute deep vein thrombosis is noted in the left posterior tibial vein. Acute deep vein thrombosis is noted in the left gastrocnemius vein. The left common femoral vein and peroneal vein appear patent and compressible. The left great saphenous vein appears patent and compressible segmentally. There has been only slight improvement since a prior study on 08/19/2019. Ordering Physician: Rose Jacobo Referring Physician: Claudia Craig Performed By: Suzanne De Dios, ERIK, RVT
== END ==
PROVIDERS: Referring Provider Physician Assistant Medical; Visit Provider Physician Assistant Medical
DX: R22.42 Localized swelling, mass and lump, left lower limb (principal)
CPT/HCPCS: 93971

== ENCOUNTER → 2019-10-17 12:43 | Outpatient (CLI) | payer MEDICARE, OTHER, SELFPAY ==
[2019-08-18 17:59] VITALS: BMI 38.7
--- NOTE | 2019-10-17 12:44 | ECHOD_ITS ---
Reason For Study: DYSPNEA/SOB Procedure This was a 2D Doppler, Color Flow transthoracic echocardiogram. Exam performed in department. Left Ventricle Normal LV size. The estimated ejection fraction is 50 %. Left ventricular systolic function is lower limits of normal. No regional wall motion abnormalities noted. Right Ventricle Mildly dilated right ventricle. Normal systolic function. Atria Normal left atrium. Normal right atrium. Mitral Valve Normal mitral valve. There is mild mitral annular calcification. Trivial eccentric mitral valve insufficiency. Tricuspid Valve Normal tricuspid valve. Mild (1+) tricuspid valve insufficiency. Pulmonary artery systolic pressure is 30 mmHg. Pulmonic Valve The pulmonic valve is not well visualized. Great Vessels Normal aortic root. The pulmonary artery is normal size. Normal inferior vena cava. Pericardium/Pleural No pericardial effusion. MMode/2D Measurements & Calculations LVIDd: 5.7 cm IVSd: 0.89 cm Ao root diam: 3.5 cm LVIDs: 3.9 cm LVPWd: 1.2 cm RVDd: 3.5 cm FS: 31.7 % LAV(MOD-bp): 62.9 ml LA A4 area: 20.1 cm2 LA dimension(2D): 3.4 cm LAV(MOD-bp) Indexed: 28.6 ml/m2 LAV(MOD-sp2): 58.6 ml LAV(MOD-sp4): 67.1 ml RA A4 area: 12.5 cm2 Time Measurements MV dec time: 0.17 sec Doppler Measurements & Calculations MV E max arvind: 58.3 cm/sec Lat Peak E' Arvind: 4.8 cm/sec Med Peak E' Arvind: 5.7 cm/sec MV A max arvind: 72.8 cm/sec E/E' lat: 12.0 E/E' med: 10.3 MV E/A: 0.80 Ao V2 max: 92.7 cm/sec LV V1 max: 64.9 cm/sec PA V2 max: 70.4 cm/sec Ao max P.4 mmHg LV V1 max P.7 mmHg TR max arvind: 259.9 cm/sec TR max P.0 mmHg Interpretation Summary Normal LV size. The estimated ejection fraction is 50 %. Left ventricular systolic function is lower limits of normal. Mild (1+) tricuspid valve insufficiency. Pulmonary artery systolic pressure is 30 mmHg. Compared to the previous the RV pressures are much improved. Ordering Physician: Concepcion Nolasco Referring Physician: Claudia Craig Performed By: Suzanne De Dios, ERIK, RVT
== END ==
PROVIDERS: Referring Provider Nurse Practitioner Acute Care; Visit Provider Nurse Practitioner Acute Care
DX: I27.20 Pulmonary hypertension, unspecified (principal); R06.02 Shortness of breath; R06.00 Dyspnea, unspecified
CPT/HCPCS: 93306

== ENCOUNTER → 2019-11-11 11:59 | Outpatient (CLI) | payer MEDICARE, OTHER, SELFPAY ==
[2019-08-18 17:59] VITALS: BMI 38.7
--- NOTE | 2019-11-14 11:48 | PFT ---
INTRODUCTION: The patient is a 74-year-old female that presents for pulmonary function studies secondary to a diagnosis of COPD. Respiratory therapy reports good patient effort. Bronchodilators were used during testing. INTERPRETATION: Forced expiration spirometry demonstrates the presence of a moderately severe large airways obstructive ventilatory defect. There was a significant response to aerosolized bronchodilators noted. Spirograms are of good quality and do not plateau indicating slow emptying of the lungs. Body plethysmography was performed and revealed an elevated RV to 128% of predicted, indicative of underlying air trapping. Diffusing capacity by single breath CO is mildly reduced to 65% of predicted. IMPRESSION: Partially reversible moderately severe large airways obstructive ventilatory defect with associated air trapping and mild reduction in diffusing capacity.
== END ==
PROVIDERS: Referring Provider Nurse Practitioner Acute Care; Visit Provider Nurse Practitioner Acute Care
DX: J44.9 Chronic obstructive pulmonary disease, unspecified (principal)
CPT/HCPCS: 94060; 94726; 94729

== ENCOUNTER → 2020-02-04 09:03 | Outpatient (CLI) | payer MEDICARE, OTHER, SELFPAY ==
[2019-11-29 09:05] VITALS: BMI 39.1
[2020-02-04 11:13] VITALS: PULSE 103; PULSE 105; PULSE 110; PULSE 111; PULSE 112; PULSE 113; PULSE 74; PULSE 88; O2SAT 86; O2SAT 90; O2SAT 91; O2SAT 94; O2SAT 95; O2SAT 96; O2SAT 98
--- NOTE | 2020-02-04 11:17 | CPS ---
PATIENT STATES SHE WEARS 4L OF OXYGEN AT HOME ONLY WHEN WALKING LONG DISTANCES. TEST WAS STARTED ON RA. AT THE 3 MINUTE SHOSHANA OXYGEN WAS INITIATED, OXYGEN SATURATIONS DROPPED TO 86%. ONCE 2L WAS STARTED SAT'S INCREASED TO 98% AND TEST WAS RESUMED. THE REMAINDER OF THE TEST WAS COMPLETED ON 2L, AND SAT'S REMAINED GREATER THAN 90%
--- NOTE | 2020-02-05 09:12 | PCM.PSN.6M ---
PSN 6 Minute Walk Test - 6 Minute Walk Test 6 Minute Walk Test: 6 Minute Walk Test PSN:6-Minute Walk Test Start: 02/04/20 11:12 Freq: Status: Active Protocol: RESP.6MINW Document 02/04/20 11:13 HJ (Rec: 02/04/20 11:20 [id number]) 6 Minute Walk Test Date Performed 02/04/20 Time Performed 11:15 Height 5 ft 7 in Weight: 245 lb Weight in Pounds 245.[address]: Claude Daily FIO2 (% Oxygen) 21 Assistive device used: None Pre-test Oxygen Delivery Method Room Air Pulse Ox (%) 96 Pulse Rate (60-100 beats/min) 74 Dyspnea Isaac Scale (0-10) 0 Exertion Isaac Scale (6-20) 6 1st minute Oxygen Delivery Method Room Air Pulse Ox (%) 95 Pulse Rate (60-100 beats/min) 105 H 2nd minute Oxygen Delivery Method Room Air Pulse Ox (%) 91 Pulse Rate (60-100 beats/min) 112 H 3rd minute Oxygen Delivery Method Room Air Pulse Ox (%) 86 Pulse Rate (60-100 beats/min) 111 H 4th minute Oxygen Flow Rate (L/min) (L/min) 2 Oxygen Delivery Method Nasal Cannula Pulse Ox (%) 98 Pulse Rate (60-100 beats/min) 103 H 5th minute Oxygen Flow Rate (L/min) (L/min) 2 Oxygen Delivery Method Nasal Cannula Pulse Ox (%) 94 Pulse Rate (60-100 beats/min) 110 H 6th minute Oxygen Flow Rate (L/min) (L/min) 2 Oxygen Delivery Method Nasal Cannula Pulse Ox (%) 90 Pulse Rate (60-100 beats/min) 113 H Post-test Oxygen Flow Rate (L/min) (L/min) 2 Oxygen Delivery Method Nasal Cannula Pulse Ox (%) 98 Pulse Rate (60-100 beats/min) 88 Dyspnea Isaac Scale (0-10) 2 Exertion Isaac Scale (6-20) 13 Full Laps Walked 13 Partial Lap, Number of Tiles Walked 0 Total Distance Walked (ft) 767 02/04/20 11:17 Cardiopulmonary Services by Cheri Carroll PATIENT STATES SHE WEARS 4L OF OXYGEN AT HOME ONLY WHEN WALKING LONG DISTANCES. TEST WAS STARTED ON RA. AT THE 3 MINUTE SHOSHANA OXYGEN WAS INITIATED, OXYGEN SATURATIONS DROPPED TO 86%. ONCE 2L WAS STARTED SAT'S INCREASED TO 98% AND TEST WAS RESUMED. THE REMAINDER OF THE TEST WAS COMPLETED ON 2L, AND SAT'S REMAINED GREATER THAN 90% Initialized on 02/04/20 11:17 - END OF NOTE - Interpretation Interpretation: The patient ambulated 767 feet over the course of 6 minutes beginning on room air without assistive devices or breaks. Pretesting oxygen saturation was noted to be 96% on room air. With ambulation, the david oxygen saturation was 86%. 2 L/min of supplemental oxygen was applied, and the patient was able to complete the remainder of the test while maintaining appropriate oxygen saturations. - Recommendations Recommendations: 2 L/min of supplemental oxygen should be utilized with exertion.
== END ==
PROVIDERS: Referring Provider Internal Medicine Critical Care Medicine; Visit Provider Internal Medicine Critical Care Medicine
DX: I25.10 Atherosclerotic heart disease of native coronary artery without angina pectoris (principal); J44.9 Chronic obstructive pulmonary disease, unspecified; Z86.711 Personal history of pulmonary embolism
CPT/HCPCS: 94618

== ENCOUNTER → 2020-02-05 09:00 | Outpatient (CLI) | payer MEDICARE, OTHER, SELFPAY ==
[2019-11-29 09:05] VITALS: BMI 39.1
[2020-02-05 10:42] LABS: AST(SGOT) 37 U/L (15-37); Alanine Aminotransfer ALT/SGPT 48 U/L (13-56); Albumin, Serum 3.9 g/dL (3.2-5.0); Alkaline Phosphatase 135 U/L (45-117); Bilirubin, Direct 0.23 mg/dL (0.00-0.30); Cholesterol 141 mg/dL (200); Globulin 3.4 g/dL (2.2-4.2); High Density Lipoprotein 74 mg/dL; Protein, Total 7.3 g/dL (6.4-8.2); Triglycerides 61 mg/dL; Very Low Density Lipoprotein 12 mg/dL (5-40)
== END ==
PROVIDERS: Referring Provider Internal Medicine Cardiovascular Disease; Visit Provider Internal Medicine Cardiovascular Disease
DX: I25.10 Atherosclerotic heart disease of native coronary artery without angina pectoris (principal)
CPT/HCPCS: 36415; 80061; 80076

== ENCOUNTER → 2022-01-11 | Outpatient (CLI) | payer MEDICARE, OTHER, SELFPAY ==
--- NOTE | 2022-01-11 15:57 | PFTCOMP ---
COMPLETE PULMONARY FUNCTION TEST INTERPRETATION Brief HPI: Patient is a 76-year-old female, currently under the care of Dr. Daily, who presents to [facility] for complete pulmonary function tests secondary to diagnosis of COPD. Respiratory therapist reports good effort and reproducible results. Interpretation: Forced expiration spirometry shows a moderately severe large airways obstructive ventilatory defect with an FEV1 of 58% predicted. There is no significant bronchodilator response by strict ATS criteria. Spirograms are of good quality and plateau slowly, indicating slowly emptying areas of the lungs. The respiratory flow volume loop shows decreased expiratory flow rates at all lung volumes consistent with airway obstruction. Lung volumes by body plethysmography show an elevated total lung capacity at 6.77 L, 131% predicted. FRC and RV are elevated out of proportion. Lung volume measurements are consistent with hyperinflation and air-trapping. Diffusion capacity by carbon monoxide is decreased at 55% predicted. The airway resistance is normal. Compared to previous pulmonary function tests from 11/11/2019, there has been significant worsening in air trapping with hyperinflation. Impression: Irreversible moderately severe large airways obstructive ventilatory defect with a proportionate reduction in diffusion capacity, resulting in air trapping with hyperinflation
== END | disposition home or self-care (01) ==
LOC: PSN 09:35
PROVIDERS: Referring Provider Internal Medicine Critical Care Medicine; Visit Provider Internal Medicine Critical Care Medicine
DX: J44.9 Chronic obstructive pulmonary disease, unspecified (principal)
CPT/HCPCS: 94060; 94726; 94729

== ENCOUNTER → 2022-03-29 | Outpatient (CLI) | payer MEDICARE, OTHER, SELFPAY ==
[2022-03-29 13:09] LABS: BNP,B-Type NATRIURETIC PEPTIDE 67.2 pg/mL (0-100)
== END | disposition home or self-care (01) ==
PROVIDERS: Referring Provider Physician Assistant Medical; Visit Provider Physician Assistant Medical
DX: R06.00 Dyspnea, unspecified (principal)
CPT/HCPCS: 36415; 83880

== ENCOUNTER → 2022-04-25 | Outpatient (CLI) | payer MEDICARE, OTHER, SELFPAY ==
--- NOTE | 2022-04-25 13:31 | ECHOD_ITS ---
Reason For Study: DYSPNEA Procedure This was a 2D Doppler, Color Flow transthoracic echocardiogram. Exam performed in department. Left Ventricle Normal LV size. Mild concentric left ventricular hypertrophy. Left ventricular systolic function is normal. The estimated ejection fraction is 55 %. Stage 1 diastolic dysfunction. No regional wall motion abnormalities noted. Right Ventricle Normal RV size. Normal systolic function. Atria Normal left atrium. Normal right atrium. Mitral Valve Normal mitral valve. Tricuspid Valve Normal tricuspid valve. Mild (1+) tricuspid valve insufficiency. Pulmonary artery systolic pressure is 40 mmHg. Aortic Valve Trisinus/trileaflet aortic valve. Pulmonic Valve Normal pulmonic valve. Great Vessels Normal aortic root. The pulmonary artery is normal size. Normal inferior vena cava. Pericardium/Pleural No pericardial effusion. MMode/2D Measurements & Calculations LVIDd: 4.6 cm IVSd: 1.5 cm LAV(MOD-sp4): 55.4 ml LVIDs: 2.7 cm LVPWd: 1.3 cm FS: 41.3 % LVAd ap4: 28.5 cm2 SV(MOD-sp4): 52.5 ml SV(sp4-el): 53.1 ml LVLd ap4: 7.0 cm EDV(MOD-sp4): 98.2 ml EDV(sp4-el): 99.2 ml LVAs ap4: 18.1 cm2 LVLs ap4: 6.0 cm ESV(MOD-sp4): 45.7 ml ESV(sp4-el): 46.1 ml EF(MOD-sp4): 53.5 % EF(sp4-el): 53.5 % LA A4 area: 20.4 cm2 LA dimension(2D): 4.0 cm RA A4 area: 20.0 cm2 Time Measurements MV dec time: 0.22 sec Doppler Measurements & Calculations MV E max arvind: 63.5 cm/sec Lat Peak E' Arvind: 10.6 cm/sec Med Peak E' Arvind: 5.4 cm/sec MV A max arvind: 77.8 cm/sec E/E' lat: 6.0 E/E' med: 11.7 MV E/A: 0.82 MV V2 max: 74.9 cm/sec Ao V2 max: 134.0 cm/sec MV max P.2 mmHg MV dec slope: 298.7 cm/sec2 Ao max P.2 mmHg MV V2 mean: 48.4 cm/sec Ao V2 mean: 94.1 cm/sec MV mean P.0 mmHg Ao mean P.0 mmHg MV V2 VTI: 25.0 cm Ao V2 VTI: 31.3 cm AV (velocity ratio): 0.66 LV V1 max: 86.7 cm/sec TR max arvind: 297.6 cm/sec LV V1 max P.0 mmHg TR max P.4 mmHg LV V1 mean P.8 mmHg LV V1 mean: 62.7 cm/sec LV V1 VTI: 20.6 cm ECHO/Echo Complete Interpretation Summary Normal LV size. Mild concentric left ventricular hypertrophy. Left ventricular systolic function is normal. The estimated ejection fraction is 55 %. Stage 1 diastolic dysfunction. Pulmonary artery systolic pressure is 40 mmHg. Ordering Physician: Rose Jacobo Referring Physician: JOSE MEEHAN Performed By: Nneka Parnell RCS
== END | disposition home or self-care (01) ==
PROVIDERS: Referring Provider Physician Assistant Medical; Visit Provider Physician Assistant Medical
DX: I25.10 Atherosclerotic heart disease of native coronary artery without angina pectoris (principal); R06.02 Shortness of breath
CPT/HCPCS: 93306

== ENCOUNTER → 2023-02-21 | Outpatient (CLI) | payer MEDICARE, OTHER, SELFPAY ==
--- NOTE | 2023-02-24 07:52 | PFTCOMP ---
COMPLETE PULMONARY FUNCTION TEST INTERPRETATION Brief HPI: Patient is a 78-year-old female, currently under the care of Concepcion Nolasco, who presents to [facility] for complete pulmonary function tests secondary to diagnosis of COPD. Respiratory therapist reports good effort and reproducible results. Interpretation: Forced expiration spirometry shows a moderately severe large airways obstructive ventilatory defect with an FEV1 of 59% predicted. There is no significant bronchodilator response by strict ATS criteria. Spirograms are of good quality and plateau slowly, indicating slowly emptying areas of the lungs. The respiratory flow volume loop shows decreased expiratory flow rates at all lung volumes consistent with airway obstruction. Lung volumes by body plethysmography show a normal total lung capacity at 5.76 L, 106% predicted. FRC and RV are elevated out of proportion. Lung volume measurements are consistent with hyperinflation and air-trapping. Diffusion capacity by carbon monoxide is slightly decreased at 72% predicted. The airway resistance is slightly elevated. Compared to previous pulmonary function tests from 01/11/2022, there has been no significant change in values. Impression: Irreversible moderately severe large airways obstructive ventilatory defect, resulting in air trapping, and a symmetric reduction in diffusion capacity.
== END | disposition home or self-care (01) ==
LOC: PSN 12:40
PROVIDERS: Referring Provider Nurse Practitioner Acute Care; Visit Provider Nurse Practitioner Acute Care
DX: J44.9 Chronic obstructive pulmonary disease, unspecified (principal)
CPT/HCPCS: 94060; 94726; 94729

== ENCOUNTER → 2025-02-12 | Outpatient (CLI) | payer MEDICARE, OTHER, SELFPAY ==
--- OUTSIDE RECORDS SUMMARY | 2025-02-12 19:37 | XMS RPT_ITS | CCD ---
Author Organization [facility] Care Team Providers Care Regulator Inspector Name Role Phone RAQUEL KOROMA Admitting Unavailable RAQUEL KOROMA Attending Unavailable RAQUEL KOROMA Primary Care Unavailable JOSE MEEHAN DO Referring Unavailable JOSE MEEHAN DO Consulting Unavailable PROVIDER, UNKNOWN Consulting Unavailable DR JOSE MEEHAN DO Primary Care Physician [phone] Dr. Jose Meehan Primary Care Provider [phone] Dr. Jose Meehan Referring Provider Dr. Vonda Daily Attending Provider [phone] Dr. Vonda Daily Referring Provider [phone] Dr. Vonda Daily Other Provider Dr. Tarun Dean Attending Provider DR JOSE MEEHAN DO Primary Care Physician [phone] DR JOSE MEEHAN DO Primary Care Physician ([facility] ) Dr. Jose Meehan Primary Care Provider [phone] Dr. Vonda Daily Referring Provider [phone] Dr. Vonda Daily Other Provider Dr. Tarun Dean Attending Provider Dr. Jose Meehan Referring Provider Donnell DOAN, FRANKI Beckman Attending Provider JOSE MEEHAN Primary Care Unavailable VONDA DAILY Attending Unavailable VONDA DAIYL Attending Unavailable DAWSON MONTERROSO Primary Care Unavailable Dr. Harvinder Mejia Attending Provider RAFA DO, DR GARCIA Primary Care Unavailable RAFA DO, DR GARCIA Attending Unavailable RAFA DO, DR GARCIA Primary Care Unavailable RAFA DO, DR GARCIA Attending Unavailable RAFA DO, DR GARCIA Attending Unavailable RAFA DO, DR GARCIA Primary Care Unavailable CLAY NESS Attending Unavailable GROVER, CLAY Referring Unavailable RAFA DO, DR GARCIA Attending Unavailable RAFA DO, DR GARCIA Primary Care Unavailable RAFA DO, DR GARCIA Attending Unavailable RAFA DO, DR GARCIA Primary Care Unavailable RAFA DO, DR GARCIA Primary Care Unavailable RAFA DO, DR GARCIA Attending Unavailable Constance ARCHERY INSTRUCTOR, Concepcion Attending Unavailable Constance ARCHERY INSTRUCTOR, Concepcion Referring Unavailable RafaJose brennan Primary Care Unavailable RafaJose brennan Primary Care Unavailable Rafa, Jose Paris Referring Unavailable Constance ARCHERY INSTRUCTOR, Concepcion Attending Unavailable RafaJose brennan Primary Care Unavailable RafaJose brennan Referring Unavailable Constance ARCHERY INSTRUCTOR, Concepcion Attending Unavailable Rafa DO, Dr. Jose Paris Primary Care Physician Rafa DAIGLE, Dr. Jose Paris Referring Provider [phone] Constance ARCHERY INSTRUCTOR-C, Concepcion Attending Physician Allergies Allergy Classification Reported Allergen(s) Allergy Type Date of Onset Reaction(s) Facility (20 sources) atorvastatin; Translations: [atorvastatin] Drug Allergy 2 Muscle pain (finding) [facility] (20 sources) Fenoprofen; Translations: [fenoprofen] Drug Allergy 2 Swelling [facility] (20 sources) Pravastatin; Translations: [pravastatin] Drug Allergy 2 Muscle pain (finding) [facility] (20 sources) Tolmetin; Translations: [tolmetin] Drug Allergy 2 [facility] (1 source) Fenoprofen Drug Allergy 7 [facility] (1 source) Aspirin Drug Allergy 5 [facility] (1 source) atorvastatin Drug Allergy 5 [facility] (1 source) Fenoprofen Drug Allergy 5 [facility] (1 source) Pravastatin Drug Allergy 5 [facility] (1 source) Tolmetin Drug Allergy 5 [facility] (1 source) [facility] Comment on above: Per patient report Medications Current Medications Medication Drug Class(es) Dates Sig (Normalized) Sig (Original) Anoro Ellipta 62.5 mcg-25 mcg/inh inhalation powder (16 sources) Start: 04-30-2024 take 1 dose by inhalation once daily Anoro Ellipta 62.5 mcg-25 mcg/inh inhalation powder Dose = 1 puff(s), Inhalation, qDay, # 3 EA, 3 Refill(s), Pharmacy: [facility] #[id number], 168, cm, 04/30/24 10:38:00 EST, Height, kg, 04/30/24 10:38:00 EST, Dosing Weight Start Date: 04/30/24 Status: Ordered Medication Dispense Status: Completed Quantity: 3.0 Unit: EA Total Allowed Fills: 4 Fills Dispensed: 0 Start: 04-30-2024 take 1 dose by inhal ation once daily Anoro Ellipta 62.5 mcg-25 mcg/inh inhalation powder Dose = 1 puff(s), Inhalation, qDay, # 3 EA, 3 Refill(s), Pharmacy: [facility] #[id number], 168, cm, 04/30/24 10:38:00 EST, Height, kg, 04/30/24 10:38:00 EST, Dosing Weight Start Date: 04/30/24 Status: Ordered Quantity: 3.0 Unit: EA Repeat number: 4 Start: 10-31-2023 take 1 dose by inhal ation once daily Anoro Ellipta 62.5 mcg-25 mcg/inh inhalation powder Dose = 1 puff(s), Inhalation, qDay, # 1 EA, 3 Refill(s), Pharmacy: [facility] #[id number], 168, cm, 05/02/23 12:54:00 EST, Height, kg, 10/31/23 10:42:00 EDT, Dosing Weight Start Date: 10/31/23 Status: Ordered Start: 03-31-2023 take 1 dose by inhal ation once daily Anoro Ellipta 62.5 mcg-25 mcg/inh inhalation powder Dose = 1 puff(s), Inhalation, qDay, # 1 EA, 3 Refill(s), [id number], 168, cm, 10/20/22 10:43:00 EDT, Height, kg, 10/20/22 10:43:00 EDT, Dosing Weight Start Date: 03/31/23 Status: Ordered Start: 09-22-2022 take 1 dose by inhal ation once daily Anoro Ellipta 62.5 mcg-25 mcg/inh inhalation powder Dose = 1 puff(s), Inhalation, qDay, sent in absence of PCP, # 1 EA, 0 Refill(s), [id number], 168, cm, 04/26/22 13:17:00 EST, Height, kg, 04/26/22 13:17:00 EST, Dosing Weight Start Date: 09/22/22 Status: Ordered Start: 12-07-2021 take 1 dose by inhal ation once daily Anoro Ellipta 62.5 mcg-25 mcg/inh inhalation powder Dose = 1 puff(s), Inhalation, qDay, # 3 EA, 1 Refill(s), [id number], 168, cm, 11/02/21 13:38:00 EDT, Height, kg, 11/02/21 13:38:00 EDT, Dosing Weight Start Date: 12/07/21 Status: Ordered Start: 05-04-2021 take 1 dose by inhal ation once daily Anoro Ellipta 62.5 mcg-25 mcg/inh inhalation powder Dose = 1 puff(s), Inhalation, qDay, # 3 EA, 1 Refill(s), Pharmacy: [facility]/pharmacy #[id number], 168, cm, 05/04/21 14:32:00 EST, Height, kg, 05/04/21 14:32:00 EST, Dosing Weight Start Date: 05/04/21 Status: Ordered aspirin 81 mg delayed release oral tablet (17 sources) Platelet Aggregation Inhibitor, Nonsteroidal Anti-inflammatory Drug Start: 11-02-2021 aspirin 81 mg ora l delayed release tablet Dose : 81 mg = 1 tab(s), Oral, qDay, # 30 tab(s), 5 Refill(s), [id number], 168, cm, 11/02/21 13:38:00 EDT, Height, kg, 11/02/21 13:38:00 EDT, Dosing Weight Start Date: 11/02/21 Status: Ordered Start: 04-07-2020 aspirin 81 mg oral delayed release tablet Dose : 81 mg = 1 tab(s), Oral, qDay, # 30 tab(s), 2 Refill(s), [id number], 167, cm, 11/05/19 13:19:00 EDT, Height, kg, 11/05/19 13:19:00 EDT, Dosing Weight Start Date: 04/07/20 Status: Ordered Start: 07-26-2019 End: 01-16-2024 take 1 tablet by mouth once daily Aspirin 81 MG tablet,chewable Discontinued 81 mg PO DAILY@0800 90 0 July 26, 2019 12:00am January 16, 2024 1:47pm Jdcakpnaap-Lsvcahie-Wxqurnuh ol (1 source) Corticosteroid, beta2-Adrenergic Agonist Start: 02-04-2025 calcium carbonate 1500 mg or al tablet (3 sources) Start: 2024 take 1 mg by mouth once daily calcium (as carbonate) 600 mg oral tablet mg = tab(s), Oral, qDay, 0 Refill(s) Start Date: 02/13/24 Status: Ordered Medication Dispense Status: Completed Total Allowed Fills: 1 Fills Dispensed: 0 Coricidin HBP Cold and Flu (3 sources) Start: 04-30-2024 take 1 dose by mouth every six hours Coricidin HBP Cold and Flu Oral, q6hr, 0 Refill(s) Start Date: 04/30/24 Status: Ordered Medication Dispense Status: Completed Total Allowed Fills: 1 Fills Dispensed: 0 Start: 04-30-2024 Coricidin HBP Cold and Flu Oral, q6hr, 0 Refill(s) Start Date: 04/30/24 Status: Ordered Repeat number: 1 furosemide 40 mg oral tablet (20 sources) Loop Diuretic Start: 06-30-2021 End: 10-08-2024 take 1 tablet by mouth once daily hydroCHLOROthiazide 25 mg oral tablet (20 sources) Thiazide Diuretic Start: 05-04-2021 hydroCHLOROthiazide 12.5 mg oral capsule Dose : 12.5 mg = 1 cap(s), Oral, qDay, # 90 cap(s), 1 Refill(s), Pharmacy: [facility]/pharmacy #[id number], 168, cm, 05/04/21 14:32:00 EST, Height, kg, 05/04/21 14:32:00 EST, Dosing Weight Start Date: 05/04/21 Status: Ordered Start: 08-13-2019 End: 06-30-2021 take 1 tablet by mouth once daily Hydrochlorothiazide 25 mg tablet Discontinued 25 mg PO DAILY 90 October 20, 2020 4:50pm June 30, 2021 1:47pm Start: 07-26-2019 End: 08-13-2019 Hydrochlorothiazide 25 mg ta blet Discontinued 12.5 mg PO DAILY August 13, 2019 1:39pm August 13, 2019 2:08pm HTN Hold if systolic blood pressure is less than 120 MMHG Start: 07-26-2019 End: 08-13-2019 take 12.5 mg by mouth once daily Hydrochlorothiazide Discontinued 12.5 MG PO DAILY August 13, 2019 12:39pm August 13, 2019 1:08pm Hold if systolic blood pressure is less than 120 MMHG Start: 07-25-2019 End: 07-26-2019 take 1 tablet by mouth once daily Hydrochlorothiazide 25 MG tablet Discontinued 25 mg PO DAILY July 25, 2019 12:00am July 26, 2019 12:13pm HTN levothyroxine sodium 0.05 mg oral tablet (20 sources) l-Thyroxine Start: 11-04-2024 levothyroxine 50 mcg (0.05 mg) oral tablet Dose : 50 mcg = 1 tab(s), Oral, qDay, # 90 tab(s), 1 Refill(s), Pharmacy: [facility] #[id number], 161.4, cm, 10/29/24 10:47:00 EDT, Height, kg, 10/29/24 10:47:00 EDT, Dosing Weight Start Date: 11/04/24 Status: Ordered Medication Dispense Status: Completed Quantity: 90.0 Unit: tab(s) Total Allowed Fills: 2 Fills Dispensed: 0 Start: 04-18-2024 levothyroxine 50 mcg (0.05 mg) oral tablet Dose : 50 mcg = 1 tab(s), Oral, qDay, # 90 tab(s), 1 Refill(s), Pharmacy: [facility] #[id number], 168, cm, 02/13/24 10:46:00 EDT, Height, kg, 02/13/24 10:46:00 EDT, Dosing Weight Start Date: 04/18/24 Status: Ordered Quantity: 90.0 Unit: tab(s) Repeat number: 2 Start: 10-31-2023 levothyroxine 50 mcg (0.05 mg) oral tablet Dose : 50 mcg = 1 tab(s), Oral, qDay, # 90 tab(s), 1 Refill(s), Pharmacy: [facility] #[id number], 168, cm, 05/02/23 12:54:00 EST, Height, kg, 10/31/23 10:42:00 EDT, Dosing Weight Start Date: 10/31/23 Status: Ordered Start: 05-02-2023 levothyroxine 50 mcg (0.05 mg) oral tablet Dose : 50 mcg = 1 tab(s), Oral, qDay, # 90 tab(s), 1 Refill(s), Pharmacy: [facility] #[id number], 168, cm, 05/02/23 12:54:00 EST, Height, kg, 05/02/23 12:54:00 EST, Dosing Weight Start Date: 05/02/23 Status: Ordered Start: 01-24-2023 take 1 tablet by jill th once daily Start: 10-20-2022 levothyroxine 50 mcg (0.05 mg) oral tablet Dose : 50 mcg = 1 tab(s), Oral, qDay, # 90 tab(s), 1 Refill(s), Pharmacy: [facility] #[id number], 168, cm, 10/20/22 10:43:00 EDT, Height, kg, 10/20/22 10:43:00 EDT, Dosing Weight Start Date: 10/20/22 Status: Ordered Start: 06-17-2022 levothyroxine 50 mcg (0.05 mg) oral tablet Dose : 50 mcg = 1 tab(s), Oral, qDay, STop 25mcg tab, # 30 tab(s), 1 Refill(s), Pharmacy: [facility]/pharmacy #[id number], 168, cm, 04/26/22 13:17:00 EST, Height Start Date: 06/17/22 Status: Ordered Start: 04-29-2022 levothyroxine 25 mcg (0.025 mg) oral tablet Dose : 25 mcg = 1 tab(s), Oral, qDayAC, # 90 tab(s), 1 Refill(s), Pharmacy: [facility]/pharmacy #[id number], 168, cm, 04/26/22 13:17:00 EST, Height, kg, 04/26/22 13:17:00 EST, Dosing Weight Start Date: 04/29/22 Status: Ordered Start: 03-23-2022 levothyroxine 25 mcg (0.025 mg) oral tablet Dose : 25 mcg = 1 tab(s), Oral, qDayAC, # 30 tab(s), 1 Refill(s), Pharmacy: [facility]/pharmacy #[id number], 168, cm, 11/02/21 13:38:00 EDT, Height, kg, 11/02/21 13:38:00 EDT, Dosing Weight Start Date: 03/23/22 Status: Ordered Start: 02-15-2022 levothyroxine 25 mcg (0.025 mg) oral tablet Dose : 25 mcg = 1 tab(s), Oral, qDayAC, # 30 tab(s), 1 Refill(s), Pharmacy: [facility]/pharmacy #[id number], 168, cm, 11/02/21 13:38:00 EDT, Height, kg, 11/02/21 13:38:00 EDT, Dosing Weight Start Date: 02/15/22 Status: Ordered Start: 11-30-2021 End: 01-24-2023 take 1 tablet by mouth once daily Levothyroxine 25 mcg tablet Discontinued 25 ug PO DAILY November 30, 2021 12:00am January 24, 2023 10:45am Start: 06-01-2021 End: 06-29-2021 take 1 tablet by mouth once daily Levothyroxine 25 mcg tablet Discontinued 25 ug PO DAILY June 01, 2021 1:00am June 29, 2021 2:45pm Start: 05-13-2021 levothyroxine 25 mcg (0.025 mg) oral tablet Dose : 25 mcg = 1 tab(s), Oral, qDayAC, # 30 tab(s), 1 Refill(s), Pharmacy: [facility]/pharmacy #[id number], 168, cm, 05/04/21 14:32:00 EST, Height, kg, 05/04/21 14:32:00 EST, Dosing Weight Start Date: 05/13/21 Status: Ordered magnesium oxide 250 mg oral tablet (3 sources) Start: 04-30-2024 take 1 mg by mouth once daily Magnesium 250 mg tablet mg = tab(s), Oral, qDay, 0 Refill(s) Start Date: 04/30/24 Status: Ordered Medication Dispense Status: Completed Total Allowed Fills: 1 Fills Dispensed: 0 24 hr metoprolol succinate 25 mg extended release oral tablet (20 sources) beta-Adrenergic Corky Start: 05-02-2023 Metoprolol Succinate ER 25 mg oral TABLET extended release Dose : 25 mg = 1 tab(s), Oral, qDay, unless HR is under 60 and systolic BP is under 90, # 90 tab(s), 1 Refill(s), Pharmacy: [facility] #[id number], 168, cm, 05/02/23 12:54:00 EST, Height, kg, 05/02/23 12:54:00 EST, Dosing Weight Start Date: 05/02/23 Status: Ordered Medication Dispense Status: Completed Quantity: 90.0 Unit: tab(s) Total Allowed Fills: 2 Fills Dispensed: 0 Start: 10-20-2022 Metoprolol Suc cinate ER 25 mg oral TABLET extended release Dose : 25 mg = 1 tab(s), Oral, qDay, unless HR is under 60 and systolic BP is under 90, # 90 tab(s), 1 Refill(s), [facility][id number], 168, cm, 10/20/22 10:43:00 EDT, Height, kg, 10/20/22 10:43:00 EDT, Dosing Weight Start Date: 10/20/22 Status: Ordered Start: 11-11-2021 Metoprolol Suc cinate ER 25 mg oral TABLET extended release Dose : 25 mg = 1 tab(s), Oral, qDay, unless HR is under 60 and systolic BP is under 90, # 90 tab(s), 1 Refill(s), Pharmacy: [facility]/pharmacy #[id number], 168, cm, 11/02/21 13:38:00 EDT, Height, kg, 11/02/21 13:38:00 EDT, Dosing Weight Start Date: 11/11/21 Status: Ordered Start: 05-04-2021 Metoprolol Suc cinate ER 25 mg oral TABLET extended release Dose : 25 mg = 1 tab(s), Oral, qDay, unless HR is under 60 and systolic BP is under 90, # 90 tab(s), 1 Refill(s), [id number], 168, cm, 05/04/21 14:32:00 EST, Height, kg, 05/04/21 14:32:00 EST, Dosing Weight Start Date: 05/04/21 Status: Ordered Start: 07-26-2019 End: 10-08-2024 take 1 tablet by mouth once daily Misc Medication (10 sources) Start: 04-26-2022 Misc Medicatio n 0 Refill(s), 112.5 Start Date: 04/26/22 Status: Ordered Medication Dispense Status: Completed Total Allowed Fills: 1 Fills Dispensed: 0 Start: 04-26-2022 Misc Medicatio n 0 Refill(s), 112.5 Start Date: 04/26/22 Status: Ordered Repeat number: 1 Start: 04-26-2022 Misc Medicatio n 0 Refill(s), 112.5 Start Date: 04/26/22 Status: Ordered Multivitamin preparation (16 sources) Start: 02-05-2019 take 1 tablet by mouth once daily Multivitamin Dose = 1 tab(s), Oral, Daily, 0 Refill(s) Start Date: 02/05/19 Status: Ordered Medication Dispense Status: Completed Total Allowed Fills: 1 Fills Dispensed: 0 Start: 02-05-2019 take 1 tablet by jill th once daily Multivitamin Dose = 1 tab(s), Oral, Daily, 0 Refill(s) Start Date: 02/05/19 Status: Ordered Repeat number: 1 Start: 02-05-2019 take 1 tablet by jill th once daily Multivitamin Dose = 1 tab(s), Oral, Daily, 0 Refill(s) Start Date: 02/05/19 Status: Ordered nitroglycerin 0.4 mg sublingual tablet (19 sources) Nitrate Vasodilator Start: 04-30-2024 nitroglyce rin 0.4 mg sublingual tablet 0.4 mg Dose = 1 tab(s), Sublingual, q5min, PRN as needed for chest pain, # 100 tab(s), 0 Refill(s), Pharmacy: [facility] #[id number], 168, cm, 04/30/24 10:38:00 EST, Height, kg, 04/30/24 10:38:00 EST, Dosing Weight Start Date: 04/30/24 Status: Ordered Medication Dispense Status: Completed Quantity: 100.0 Unit: tab(s) Total Allowed Fills: 1 Fills Dispensed: 0 Start: 07-26-2019 End: 01-24-2023 Start: 07-26-2019 nitroglycerin 0.4 mg sublingual tablet 0.4 mg Dose = 1 tab(s), Sublingual, q5min, PRN as needed for chest pain, # 100 tab(s), 0 Refill(s), Pharmacy: [facility]/pharmacy #[id number], 168, cm, 11/02/21 13:38:00 EDT, Height Start Date: 11/02/21 Status: Ordered nitroglycerin 0.4 mg subling ual tablet (2 sources) Start: 08-06-2019 nitroglycerin 0.4 mg sublingual tablet 0.4 mg Dose = 1 tab(s), Sublingual, q5min, PRN as needed for chest pain, # 100 tab(s), 0 Refill(s) Start Date: 08/06/19 Status: Ordered potassium chloride 20 meq or al tablet (5 sources) Start: 11-04-2024 Potassium Chlo ride (Eqv-K-Tab) 20 mEq oral tablet, extended release Dose : 20 mEq = 1 tab(s), Oral, qDay, # 90 tab(s), 1 Refill(s), Pharmacy: [facility] #[id number], 161.4, cm, 10/29/24 10:47:00 EDT, Height, kg, 10/29/24 10:47:00 EDT, Dosing Weight Start Date: 11/04/24 Status: Ordered Medication Dispense Status: Completed Quantity: 90.0 Unit: tab(s) Total Allowed Fills: 2 Fills Dispensed: 0 Start: 07-30-2024 take 1 tablet by jill th once daily Start: 04-30-2024 Potassium Chlo ride (Eqv-K-Tab) 20 mEq oral tablet, extended release Dose : 20 mEq = 1 tab(s), Oral, qDay, # 90 tab(s), 1 Refill(s), Pharmacy: [facility] #[id number], 168, cm, 04/30/24 10:38:00 EST, Height, kg, 04/30/24 10:38:00 EST, Dosing Weight Start Date: 04/30/24 Status: Ordered Quantity: 90.0 Unit: tab(s) Repeat number: 2 Start: 10-31-2023 Potassium Chlo ride (Eqv-K-Tab) 20 mEq oral tablet, extended release Dose : 20 mEq = 1 tab(s), Oral, qDay, # 90 tab(s), 1 Refill(s), Pharmacy: [facility] #[id number], 168, cm, 05/02/23 12:54:00 EST, Height, kg, 10/31/23 10:42:00 EDT, Dosing Weight Start Date: 10/31/23 Status: Ordered 7 actuat umeclidinium 0.0625 mg/actuat / vilanterol 0.025 mg/actuat dry powder inhaler (13 sources) Anticholinergic, beta2-Adrenergic Agonist Start: 06-15-2022 End: 02-04-2025 Umeclidinium-Vilanterol (Anoro Ellipta) 62.5-25 mcg/actuation blister with device Discontinued 1 NMA INHALATION Q24H 3 July 30, 2024 11:27am February 04, 2025 1:15pm Start: 11-30-2020 End: 06-15-2022 Umeclidinium-Vilanterol (Ano ro Ellipta) 62.5-25 mcg/actuation blister with device Discontinued 1 NMA INHALATION Q24H 60 6 November 30, 2020 12:00am June 15, 2022 9:56am Start: 11-30-2020 Umeclidinium-V ilanterol (Anoro Ellipta) 62.5-25 mcg/actuation blister with device Active 1 INH INHALATION Q24H 60 November 29, 2020 11:00pm Start: 11-30-2020 Umeclidinium-V ilanterol (Anoro Ellipta) 62.5-25 mcg/actuation blister with device Active 1 INH INHALATION Q24H 60 November 30, 2020 12:00am Start: 07-25-2019 End: 06-29-2021 Umeclidinium-Vilanterol 62.5 -25 mcg/actuation blister with device Discontinued 1 NMA INHALATION DAILY July 25, 2019 12:00am June 29, 2021 2:47pm COPD Start: 07-25-2019 End: 06-29-2021 take 1 puff(s) by inhalation once daily Umeclidinium-Vilanterol Discontinued 1 PUFF INHALATION DAILY July 24, 2019 11:00pm June 29, 2021 1:47pm Start: 07-25-2019 End: 06-29-2021 take 1 puff(s) by inhalation once daily Umeclidinium-Vilanterol Discontinued 1 PUFF INHALATION DAILY July 25, 2019 12:00am June 29, 2021 2:47pm Vitamin D3 (3 sources) Start: 2024 Vitamin D3 qDa y, 0 Refill(s) Start Date: 02/13/24 Status: Ordered Medication Dispense Status: Completed Total Allowed Fills: 1 Fills Dispensed: 0 Start: 2024 Vitamin D3 qDa y, 0 Refill(s) Start Date: 02/13/24 Status: Ordered Repeat number: 1 Zinc (3 sources) Start: 04-30-2024 Zinc 0 Refill( s) Start Date: 04/30/24 Status: Ordered Medication Dispense Status: Completed Total Allowed Fills: 1 Fills Dispensed: 0 Start: 04-30-2024 Zinc 0 Refill( s) Start Date: 04/30/24 Status: Ordered Repeat number: 1 Completed/Discontinued Medications Medication Drug Class(es) Dates Sig (Normalized) Sig (Original) [id number] actuat albuterol 0.09 mg/actuat metered dose inhaler (12 sources) beta2-Adrenergic Agonist Start: 11-29-2019 End: 07-30-2024 Albuterol Sulfate 90 mcg/actuation HFA aerosol inhaler Discontinued 2 NMA INHALATION Q4H as needed for shortness of breath or wheezing 8.5 6 June 12, 2023 8:51am July 30, 2024 11:07am administer with spacer Start: 11-29-2019 End: 02-03-2022 take 1 puff(s) by inhalation every four hours Albuterol Sulfate Discontinued 2 PUFF INHALATION Q4H 8.5 November 30, 2020 12:04pm February 03, 2022 7:46am administer with spacer apixaban 5 mg oral tablet (20 sources) Factor Xa Inhibitor Start: 09-05-2019 End: 02-22-2024 take 1 tablet by mouth twice daily Apixaban 5 mg tablet Discontinued 5 mg PO TWICE A DAY 60 October 15, 2020 1:54pm March 29, 2022 12:54pm Pulmonary hypertension, unspecified Start: 08-19-2019 End: 09-05-2019 take 2 tablets by mouth twice daily, then take 1 tablet by mouth twice daily Apixaban 5 MG tablet Discontinued 10 mg PO TWICE A DAY August 19, 2019 12:00am September 05, 2019 1:07pm 10 mg po bid x 14 doses, then switch to 5 mg po bid dosing Start: 08-19-2019 End: 09-05-2019 take 10 mg by mouth twice daily, then take 5 mg by mouth twice daily Apixaban Discontinued 10 MG PO TWICE A DAY August 18, 2019 11:00pm September 05, 2019 12:07pm 10 mg po bid x 14 doses, then switch to 5 mg po bid dosing Start: 08-19-2019 End: 09-05-2019 take 10 mg by mouth twice daily Apixaban Discontinued 5 MG PO TWICE A DAY August 18, 2019 11:00pm September 05, 2019 12:08pm start after completing 10 mg bid dose. atorvastatin 40 mg oral tablet (16 sources) HMG-CoA Reductase Inhibitor Start: 02-12-2020 End: 02-12-2020 take 1 tablet by mouth once daily Atorvastatin 40 mg tablet Discontinued 40 mg PO DAILY February 12, 2020 1:20pm February 12, 2020 1:47pm Start: 12-03-2019 End: 02-12-2020 take 1 tablet by mouth every other day Atorvastatin 40 mg tablet Discontinued 40 mg PO .QOD 90 December 03, 2019 5:09pm February 12, 2020 1:22pm Start: 07-26-2019 End: 12-03-2019 take 1 tablet by mouth at bedtime Atorvastatin 40 mg tablet Discontinued 40 mg PO AT BEDTIME 90 August 13, 2019 2:10pm December 03, 2019 5:11pm ezetimibe 10 mg oral tablet (20 sources) Dietary Cholesterol Absorption Inhibitor Start: 03-31-2020 End: 10-08-2024 take 1 tablet by mouth once daily Ezetimibe (Zetia) 10 mg tablet Discontinued 10 mg PO DAILY 90 January 16, 2024 1:47pm October 08, 2024 1:17pm lisinopril 5 mg oral tablet (20 sources) Angiotensin Converting Enzyme Inhibitor Start: 04-30-2024 End: 10-08-2024 take 1 tablet by mouth once daily Lisinopril 5 mg tablet Discontinued 5 mg PO daily July 30, 2024 12:00am October 08, 2024 1:17pm Start: 11-02-2021 End: 07-30-2024 take 1 tablet by mouth twice daily Lisinopril 2.5 mg tablet Discontinued 2.5 mg PO TWICE A DAY 180 January 16, 2024 1:47pm July 30, 2024 11:07am Start: 06-29-2021 End: 03-29-2022 take 1 tablet by mouth once daily Lisinopril 2.5 mg tablet Discontinued 2.5 mg PO DAILY 90 June 29, 2021 2:48pm March 29, 2022 12:24pm Start: 05-04-2021 lisinopril 5 m g oral tablet Dose : 2.5 mg = 0.5 tab(s), Oral, qDay, unless BP is under 110 systolic., # 45 tab(s), 3 Refill(s), Pharmacy: [facility]/pharmacy #[id number], 168, cm, 05/04/21 14:32:00 EST, Height, kg, 05/04/21 14:32:00 EST, Dosing Weight Start Date: 05/04/21 Status: Ordered Start: 07-26-2019 End: 06-29-2021 take 2.5 mg by mouth once daily Lisinopril 5 mg tablet Discontinued 2.5 mg PO DAILY 16 05August 13, 2019 2:08pm June 29, 2021 2:46pm Hold if SBP Start: 07-26-2019 End: 06-29-2021 take 2.5 mg by mouth once daily Lisinopril Discontinue d 2.5 MG PO DAILY August 13, 2019 1:08pm June 29, 2021 1:46pm Hold if SBP pravastatin sodium 10 mg oral tablet (4 sources) HMG-CoA Reductase Inhibitor Start: 02-12-2020 End: 02-18-2020 take 1 tablet by mouth once daily Pravastatin 10 mg tablet Discontinued 10 mg PO DAILY 13 02February 12, 2020 12:00am February 18, 2020 2:41pm Problems Active Problems Problem Classification Problem Date Documented Da te Episodic/Chronic Acute myocardial infarction (4 sources) Myocardial infarction; Translations: [Non-ST elevation (NSTEMI) myocardial infarction] 08-18-2019 Chronic Chronic obstructive pulmonary disease and bronchiectasis (20 sources) Chronic obstructive lung disease; Translations: [Chronic obstructive pulmonary disease, unspecified] Onset: 08-29-2024 11-05-2019 Chronic Comment on above: FEV1 59% Coronary atherosclerosis and other heart disease (20 sources) Coronary arteriosclerosis; Translations: [History of non-ST segment elevation myocardial infarction] Onset: 07-25-2019 05-05-2020 Chronic Disorders of lipid metabolism (14 sources) Hyperlipidemia; Translations: [Hyperlipidemia, unspecified] Onset: 10-20-2023 04-26-2022 Chronic E Codes: Natural/environment (1 source) Bitten or stung by nonvenomous insect and other nonvenomous arthropods, initial encounter; Translations: [Bitten or stung by nonvenomous insect and other nonvenomous arthropods, initial encounter] Onset: 08-31-2024 Episodic Essential hypertension (20 sources) Hypertensive disorder; Translations: [Essential hypertension] Onset: 10-20-2023 11-05-2019 Chronic Nonspecific chest pain (4 sources) Chest pain; Translations: [Chest pain, unspecified] 08-18-2019 Episodic Osteoarthritis (20 sources) Arthritis; Translations: [Osteoarthritis] 01-08-2016 Chronic Other gastrointestinal disorders (16 sources) H/O: GIT by-pass 01-08-2016 Chronic Other lower respiratory disease (4 sources) Dyspnea on exertion; Translations: [Other forms of dyspnea] 06-29-2021 Episodic Other lower respiratory disease (2 sources) Other forms of dyspnea; Translations: [Other respiratory abnormalities] Episodic Other nervous system disorders (3 sources) Drug-induced myopathy 04-30-2024 Episodic Other nutritional; endocrine; and metabolic disorders (5 sources) Body mass index 30+ - obesity; Translations: [Obesity, unspecified] 06-28-2021 Chronic Other nutritional; endocrine; and metabolic disorders (1 source) Obesity, unspecified; Translations: [Obesity, unspecified] Onset: 08-29-2024 Chronic Other screening for suspected conditions (not mental disorders or infectious disease) (2 sources) Encounter for screening mammogram for malignant neoplasm of breast; Translations: [Encounter for screening mammogram for malignant neoplasm of breast] Onset: 11-17-2023 Episodic Pulmonary heart disease (7 sources) Pulmonary hypertension; Translations: [Pulmonary hypertension, unspecified] Onset: 08-29-2024 06-28-2021 Chronic Comment on above: RVSP 40mmHg Residual codes; unclassified (2 sources) Hypersomnia, unspecified; Translations: [Hypersomnia, unspecified] Onset: 01-28-2025 Chronic Residual codes; unclassified (2 sources) Daytime hypersomnia; Translations: [Hypersomnia, unspecified] 01-28-2025 Chronic Respiratory failure; insufficiency; arrest (adult) (11 sources) Chronic hypoxemic respiratory failure; Translations: [Chronic respiratory failure with hypoxia] Onset: 08-29-2024 Chronic Spondylosis; intervertebral disc disorders; other back problems (16 sources) Low back pain 11-05-2019 Episodic Superficial injury; contusion (1 source) Insect bite (nonvenomous) of abdominal wall, initial encounter; Translations: [Insect bite (nonvenomous) of abdominal wall, initial encounter] Onset: 08-31-2024 Episodic Thyroid disorders (18 sources) Hypothyroidism; Translations: [Hypothyroidism, unspecified] Onset: 10-20-2023 Chronic Unclassified (16 sources) History of repair of hip joint 01-08-2016 Unclassified (16 sources) Statin not tolerated (context-dependent category) 05-05-2020 Past or Other Problems Problem Classification Problem Date Documented Da te Episodic/Chronic Pulmonary heart disease (20 sources) H/O: pulmonary embolus; Translations: [Personal history of pulmonary embolism] Onset: 08-18-2019 11-03-2020 Episodic Results Test Name Value Interpretation Reference Range Facility Pulmonary Visit Reporton Pulmonary Visit Report [facility] [address] [place] [address] OFFICE VISIT Date of Service: 01/28/25 MR#: [id number] Acct: [id number] Name: LETICIA CARRILLO Rep #: [id number] : 1945 Provider: ELIEZER Nolasco Age/Sex: 79/F Location[place] [facility] [place] Status: Signed Assessment and Plan Assessment and Plan (1) Daytime hypersomnia: Status: Acute Plan: Suspicious for obstructive sleep apnea. Lengthy discussion about the pathophysiology of obstructive sleep apnea. We discussed the risks of untreated sleep apnea as well as the benefits. She is agreeable to a polysomnogram and therapy if indicated. Initial goal will be to wear PAP at least 4 hours nightly. Ultimately, it should be worn any time spent sleeping. I have encouraged the patient to call the office with any difficulties acclimating to PAP therapy. Follow up in the office in 3 months, at which time I anticipate the patient will be on PAP therapy for 4-6 weeks. (2) COPD (chronic obstructive pulmonary disease): Status: Chronic Qualifiers: COPD type: emphysema Emphysema type: centrilobular Qualified Code(s): J43.2 - Centrilobular emphysema Comment: FEV1 59% Plan: Escalating to triple therapy, she was given a sample of Breztri to try. If she feels it is more effective than Anoro she will call the office for a prescription. Contact the office for any new or worsening symptoms. An acute visit and typically be arranged within 1-2 days. Follow-up in 3 months. (3) Chronic respiratory failure with hypoxia: Status: Chronic Plan: The patient is using and benefiting from oxygen. Continue to utilize to maintain a saturation of 89-92%. Follow-up in 3 months. (4) Pulmonary hypertension: Status: Chronic Comment: RVSP 40mmHg Plan: Symptomatically stable. (5) Obesity (BMI 30-39.9): Status: Chronic Plan: Complicates exam, plan, care and prognosis. Continue to encourage weight loss. May be appropriate for Zepbound if diagnosed with LETICIA. Orders: Orders Polysomnography Today G47.10 - Hypersomnia, unspecified Plan Details Additional Comments: This note was generated with Poptent dictation software. It may contain incorrect words, spelling, and punctuation that were not noted in checking the note before signing. Portions of this documentation have been copied and pasted from previous office visit notes to provide a cohesive continuity of the history. The note has been reviewed, edited, and updated, as necessary. I have spent 41 minutes today reviewing labs, records and history. Time includes coordinating care, interpretation of tests. This also includes time I spent with the patient for exam, treatment plan and education as well as documenting clinical information. Follow Up: 3 Months HPI 6 M FU Chief Complaint: shortness of breath HPI Comments Details: This patient presents to the office today for follow-up of her COPD complicated by pulmonary hypertension. She is ambulatory with a cane and is wearing supplemental oxygen. She has not recently been seen in the ED or urgent care for any respiratory illness. She has not required any antibiotics or prednisone for any breathing problems. She is compliant with use of Anoro daily. She continues complete smoking cessation since 1988. She is compliant with supplemental oxygen. She is using 3 L/min at rest and 4 L/min on exertion and when using her exercise bike. She also utilizes 3 L/min with sleep. She continues with shortness of breath on exertion. She has an occasional dry cough, she denies any hemoptysis. She denies any wheezing, chest tightness, chest pain or palpitations. She denies any fever, chills or body aches. She is napping 1-2 times daily for several hours. Sometimes she goes back to bed after only being awake for 2 hours and sleeps another 5 hours. She is not sure if she snores. She does have dry mouth in the morning. She has high blood pressure and is on medication to help control it. She does not feel rested when waking up. STOP-BANG Assessment: 1. Do you snore? unsure 2. Are you frequently tired during the day? Yes 3. Have you been observed gasping or choking while asleep? no 4. Do you have high blood pressure? Y 5. BMI - greater than 35kg/m2? y 6. Age - over 50 years old? y 7. Neck Circumference - greater than 37 cm for females or 40 cm for males? y 8. Gender - male? n Total STOP-BANG score = 4 which indicates high risk for obstructive sleep apnea (yes to 3 or more questions = high risk of sleep apnea). Intake Vital Signs 07/30/24 08:06 01/28/25 08:18 Height 5 ft 7 in 5 ft 7 in Weight: 229 lb BMI 35.9 BP 125/75 H Blood Pressure Location Lt brachial Position Sitting Respiration 18 Pulse 71 Pulse Source Monitor Temp 97.4 F L Temperature Source Temporal Artery (more content not included)... Normal [facility] MA MAMMOGRAM SCREENING BILAT ERAL W/TOMOon 12-03-2024 MA MAMMOGRAM SCREENING BILATERAL W/FORTUNATO ORIGINAL FROM: [place] [id number] PROCEDURE FOR: LETICIA CARRILLO [address] [place] [id number] Home: PID#: [id number] Exam#: [id number] : 1945 Age: 79 TO: JOSE MEEHAN [place] [address] Fax: NO FAX EXAMINATION: SCREENING DIGITAL BILATERAL MAMMOGRAM WITH TOMOSYNTHESIS, 12/03/2024 11:06 am TECHNIQUE: Screening mammography of the bilateral breasts was performed with tomosynthesis. 2D standard and 3D tomosynthesis combination imaging performed through both breasts in the MLO and CC projection. Computer aided detection was utilized in the interpretation of this exam. COMPARISON: 11/17/2023, 11/24/2021 HISTORY: Breast cancer screening. FINDINGS: BREAST DENSITY: There are scattered areas of fibroglandular density. There are benign appearing calcifications in both breasts. There are no significant masses or calcifications. IMPRESSION: No mammographic evidence of malignancy. Continued screening with annual mammograms is recommended. Ankur Albrecht risk calculations, generated with the history provided, report this patient's lifetime risk for developing breast cancer at 4.2%. Based on this assessment tool, if the patient's calculated lifetime risk is below 20%, then the patient is considered at average risk for developing breast cancer. If the patient's calculated lifetime risk is at or above 20%, then the patient is considered high risk for developing breast cancer and may be a candidate for supplemental breast MRI screening in addition to annual mammographic screening per the [employer]. BIRADS: BI-RADS: 2: Benign RECALL: 1 year screening RECALL TYPE: mammo LETTER SENT: Normal BI-RADS 1 and 2 Interpreted by: Dawson Ferreira MD Preliminary Report By: Dawson Ferreira MD Electronically signed By Dawson Ferreira MD Dictated Date: 12/03/2024 7:36:11 PM Prelim Date: 12/03/2024 7:38:55 PM Sign Date: 12/03/2024 7:38:55 PM Ordering Provider: JOSE MEEHAN Pocket Maker: SEBAS OLIVARES RT(R)(M) RDMS letter sent: Normal BI-RADS 1 and 2 Mammogram BI-RADS: 2 Benign Normal [facility] LMERLYon 10-25-2024 Lyme Total Antibody ANAI Negative Normal Negative [facility] Comment on above: Result Comment: Lyme antibodies not detected. Reflex testing is not indicated. No laboratory evidence of infection with B. burgdorferi (Lyme disease). Negative results may occur in patients recently infected (less than or equal to 14 days) with B. burgdorferi. If recent infection is suspected, repeat testing on a new sample collected in 7 to 14 days is recommended. Performed At: [facility] [id number] Haroon Mark PhD Ph:[phone] Performed By: #### L IPID, CBC, TSH, CMP, FT3, GFR, FT4, ADIFF, ANEU #### [address] [address] .Auto Diffon 10-24-2024 Basophil, Absolute 0.0 10 3/mcL Normal 0.0-0.3 [facility] Comment on above: Performed By: #### L IPID, CBC, TSH, CMP, FT3, GFR, FT4, ADIFF, ANEU #### [address] [address] Basophils/100 WBC (Bld) 0.7 % Normal 0.0-2.5 [facility] Comment on above: Performed By: #### L IPID, CBC, TSH, CMP, FT3, GFR, FT4, ADIFF, ANEU #### [address] [address] Eosinophil, Absolute 0.1 10 3/mcL Normal 0.0-0.7 [facility] Comment on above: Performed By: #### L IPID, CBC, TSH, CMP, FT3, GFR, FT4, ADIFF, ANEU #### [address] [address] Eosinophils/100 WBC (Bld) 2.9 % Normal 0.0-6.0 [facility] Comment on above: Performed By: #### L IPID, CBC, TSH, CMP, FT3, GFR, FT4, ADIFF, ANEU #### [address] [address] Lymphocyte, Absolute 1.5 10 3/mcL Normal 0.9-4.3 [facility] Comment on above: Performed By: #### L IPID, CBC, TSH, CMP, FT3, GFR, FT4, ADIFF, ANEU #### [address] [address] Lymphocytes/100 WBC (Bld) 32.6 % Normal 20.0-40.0 [facility] Comment on above: Performed By: #### L IPID, CBC, TSH, CMP, FT3, GFR, FT4, ADIFF, ANEU #### [address] [address] Monocyte, Absolute 0.5 10 3/mcL Normal 0.1-1.4 [facility] Comment on above: Performed By: #### L IPID, CBC, TSH, CMP, FT3, GFR, FT4, ADIFF, ANEU #### [address] [address] Monocytes/100 WBC (Bld) 11.5 % Normal 2.0-13.0 [facility] Comment on above: Performed By: #### L IPID, CBC, TSH, CMP, FT3, GFR, FT4, ADIFF, ANEU #### [place] [address] [place], [place] [address] Neutrophils/100 WBC (Bld) 52.3 % Normal 50.0-75.0 [facility] Comment on above: Performed By: #### L IPID, CBC, TSH, CMP, FT3, GFR, FT4, ADIFF, ANEU #### [address] [address] .GFRon 10-24-2024 Estimated Glomerular Filtration Rate 66 ml/min/1.73sqm Normal [facility] Comment on above: Result Comment: Stages of Chronic Kidney Disease (CKD) Stage Description eGFR(ml/min/1.73 sq.m.) CKD 1 Normal kidney function or >=90 normal kindney function with possible kidney damage (ex. Proteinuria) CKD 2 Kidney damage with mild loss 60-89 of kidney function CKD 3a Mild to moderate loss of kidney 45-59 function CKD 3b Moderate to severe loss of 30-44 of kindey function CKD 4 Severe loss of kidney function 15-29 CKD 5 Kidney failure <15 Note: (go live 2024) the eGFR calculation was updated to the 2020 CKD-EPI creatinine equation without a race factor to calculate the eGFR results. Performed By: #### L IPID, CBC, TSH, CMP, FT3, GFR, FT4, ADIFF, ANEU #### [address] [address] .NEUABSon 10-24-2024 Neutrophil, Absolute 2.4 10 3/mcL Normal 2.3-8.1 [facility] Comment on above: Performed By: #### L IPID, CBC, TSH, CMP, FT3, GFR, FT4, ADIFF, ANEU #### [place] [address] [place], [place] [address] CBCon 10-24-2024 Erythrocyte distribution width (RBC) [Ratio] 13.9 % Normal 11.5-15.5 [facility] Comment on above: Performed By: #### L IPID, CBC, TSH, CMP, FT3, GFR, FT4, ADIFF, ANEU #### [place] [address] Hematocrit (Bld) [Volume fraction] 39.9 % Normal 34.0-46.0 [facility] Comment on above: Performed By: #### L IPID, CBC, TSH, CMP, FT3, GFR, FT4, ADIFF, ANEU #### [place] [address] Hgb 13.4 G/dL Normal 12.0-16.0 [facility] Comment on above: Performed By: #### L IPID, CBC, TSH, CMP, FT3, GFR, FT4, ADIFF, ANEU #### [place] [address] MCH (RBC) [Entitic mass] 31.1 pg Normal 27.0-33.0 [facility] Comment on above: Performed By: #### L IPID, CBC, TSH, CMP, FT3, GFR, FT4, ADIFF, ANEU #### [place] [address] MCHC 33.5 G/dL Normal 32.0-36.0 [facility] Comment on above: Performed By: #### L IPID, CBC, TSH, CMP, FT3, GFR, FT4, ADIFF, ANEU #### [place] [address] MCV (RBC) [Entitic vol] 92.8 fL Normal 80.0-99.0 [facility] Comment on above: Performed By: #### L IPID, CBC, TSH, CMP, FT3, GFR, FT4, ADIFF, ANEU #### [place] [address] Platelet 140 10 3/mcL Low 150-450 [facility] Comment on above: Performed By: #### L IPID, CBC, TSH, CMP, FT3, GFR, FT4, ADIFF, ANEU #### [address] [address] Platelet mean volume (Bld) [Entitic vol] 9.9 fL Normal 6.6-10.5 [facility] Comment on above: Performed By: #### L IPID, CBC, TSH, CMP, FT3, GFR, FT4, ADIFF, ANEU #### [address] [address] RBC 4.30 10 6/mcL Normal 4.10-5.30 [facility] Comment on above: Performed By: #### L IPID, CBC, TSH, CMP, FT3, GFR, FT4, ADIFF, ANEU #### [address] [address] WBC 4.5 10 3/mcL Normal 4.5-10.8 [facility] Comment on above: Performed By: #### L IPID, CBC, TSH, CMP, FT3, GFR, FT4, ADIFF, ANEU #### [address] [address] CMPon 10-24-2024 Albumin Level 3.7 G/dL Normal 3.4-4.8 [facility] Comment on above: Performed By: #### L IPID, CBC, TSH, CMP, FT3, GFR, FT4, ADIFF, ANEU #### [address] [address] Albumin/Globulin [Mass ratio] 1.2 {ratio} Normal 1.1-2.5 [facility] Comment on above: Performed By: #### L IPID, CBC, TSH, CMP, FT3, GFR, FT4, ADIFF, ANEU #### [address] [address] ALP [Catalytic activity/Vol] 113 U/L Normal 40-135 [facility] Comment on above: Performed By: #### L IPID, CBC, TSH, CMP, FT3, GFR, FT4, ADIFF, ANEU #### [address] [address] ALT [Catalytic activity/Vol] 31 U/L Normal 14-59 [facility] Comment on above: Performed By: #### L IPID, CBC, TSH, CMP, FT3, GFR, FT4, ADIFF, ANEU #### [address] [address] AST [Catalytic activity/Vol] 30 U/L Normal 10-40 [facility] Comment on above: Performed By: #### L IPID, CBC, TSH, CMP, FT3, GFR, FT4, ADIFF, ANEU #### [address] [address] Bili Total 0.8 mg/dL Normal 0.2-1.0 [facility] Comment on above: Result Comment: Use of this assay is not recommended for patients undergoing treatment with eltrombopag due to the potential for falsely elevated results. Performed By: #### L IPID, CBC, TSH, CMP, FT3, GFR, FT4, ADIFF, ANEU #### [address] [address] BUN/Creatinine Ratio 27 ratio Normal 7-27 [facility] Comment on above: Performed By: #### L IPID, CBC, TSH, CMP, FT3, GFR, FT4, ADIFF, ANEU #### [address] [address] Calcium [Mass/Vol] 9.0 mg/dL Normal 8.4-10.2 [facility] Comment on above: Performed By: #### L IPID, CBC, TSH, CMP, FT3, GFR, FT4, ADIFF, ANEU #### [address] [address] Chloride [Moles/Vol] 108 mmol/L High 98-107 [facility] Comment on above: Performed By: #### L IPID, CBC, TSH, CMP, FT3, GFR, FT4, ADIFF, ANEU #### [address] [address] CO2 [Moles/Vol] 31 mmol/L Normal 23-31 [facility] Comment on above: Performed By: #### L IPID, CBC, TSH, CMP, FT3, GFR, FT4, ADIFF, ANEU #### [place] [address] Creatinine [Mass/Vol] 0.89 mg/dL Normal 0.51-0.95 [facility] Comment on above: Performed By: #### L IPID, CBC, TSH, CMP, FT3, GFR, FT4, ADIFF, ANEU #### [place] [address] Electrolyte Balance 6.0 mEq/L Normal 4.0-15.0 [facility] Comment on above: Performed By: #### L IPID, CBC, TSH, CMP, FT3, GFR, FT4, ADIFF, ANEU #### [place] [address] Globulin 3.0 G/dL Normal 2.7-4.4 [facility] Comment on above: Performed By: #### L IPID, CBC, TSH, CMP, FT3, GFR, FT4, ADIFF, ANEU #### [place] [address] Glucose [Mass/Vol] 94 mg/dL Normal 83-110 [facility] Comment on above: Performed By: #### L IPID, CBC, TSH, CMP, FT3, GFR, FT4, ADIFF, ANEU #### [address] [address] Potassium [Moles/Vol] 4.2 mmol/L Normal 3.5-5.1 [facility] Comment on above: Performed By: #### L IPID, CBC, TSH, CMP, FT3, GFR, FT4, ADIFF, ANEU #### [place] [address] Sodium [Moles/Vol] 145 mmol/L Normal 136-145 [facility] Comment on above: Performed By: #### L IPID, CBC, TSH, CMP, FT3, GFR, FT4, ADIFF, ANEU #### [address] [address] Total Protein 6.7 G/dL Normal 6.4-8.2 [facility] Comment on above: Performed By: #### L IPID, CBC, TSH, CMP, FT3, GFR, FT4, ADIFF, ANEU #### [address] [address] Urea nitrogen [Mass/Vol] 24 mg/dL High 7-18 [facility] Comment on above: Performed By: #### L IPID, CBC, TSH, CMP, FT3, GFR, FT4, ADIFF, ANEU #### [address] [address] FT3on 10-24-2024 Free T3 [Mass/Vol] 2.33 pg/mL Normal 2.30-4.00 [facility] Comment on above: Performed By: #### L IPID, CBC, TSH, CMP, FT3, GFR, FT4, ADIFF, ANEU #### [address] [address] FT4on 10-24-2024 Free T4 [Mass/Vol] 1.16 ng/dL Normal 0.76-1.46 [facility] Comment on above: Performed By: #### L IPID, CBC, TSH, CMP, FT3, GFR, FT4, ADIFF, ANEU #### [address] [address] LABORATORYOrdered By: SYSTEM SYSTEM on 10-24-2024 Albumin BCP dye [Mass/Vol] 3.7 G/dL Normal 3.4 - 4.8 G/dL AO ADM SS Albumin/Globulin [Mass ratio] 1.2 {ratio} Normal 1.1 - 2.5 ratio AO ADM SS ALP [Catalytic activity/Vol] 113 U/L Normal 40 - 135 U/L AO ADM SS ALT With P-5'-P [Catalytic activity/Vol] 31 U/L Normal 14 - 59 U/L AO ADM SS AST With P-5'-P [Catalytic activity/Vol] 30 U/L Normal 10 - 40 U/L AO ADM SS Basophils (Bld) [#/Vol] 0.0 103/mcL Normal 0.0 - 0.3 10^3/mcL AO Workflow SS Basophils/100 WBC (Bld) 0.7 % Normal 0.0 - 2.5 % AO Workflow SS Bilirubin [Mass/Vol] 0.8 mg/dL Normal 0.2 - 1 .0 mg/dL AO ADM SS Comment on above: Interpretive Data: U se of this assay is not recommended for patients undergoing treatment with eltrombopag due to the potential for falsely elevated results. Calcium [Mass/Vol] 9.0 mg/dL Normal 8.4 - 10. 2 mg/dL AO ADM SS Chloride [Moles/Vol] 108 mmol/L High 98 - 10 7 mmol/L AO ADM SS CO2 [Moles/Vol] 31 mmol/L Normal 23 - 31 mmol/L AO ADM SS Creatinine [Mass/Vol] 0.89 mg/dL Normal 0.51 - 0.95 mg/dL AO ADM SS Electrolyte Balance 6.0 mEq/L Normal 4.0 - 15 .0 mEq/L AO ADM SS Eosinophil, Absolute 0.1 103/mcL Normal 0.0 - 0 .7 10^3/mcL AO Workflow SS Eosinophils/100 WBC (Bld) 2.9 % Normal 0.0 - 6.0 % AO Workflow SS Erythrocyte distribution width (RBC) [Ratio] 13.9 % Normal 11.5 - 15.5 % AO Workflow SS Estimated Glomerular Filtration Rate 66 ml/min/1.73sqm Invalid Interpretation Code AO Chemistry S Comment on above: Interpretive Data: Stages of Chronic Kidney Disease (CKD) Stage Description eGFR(ml/min/1.73 sq.m.) CKD 1 Normal kidney function or >=90 normal kindney function with possible kidney damage (ex. Proteinuria) CKD 2 Kidney damage with mild loss 60-89 of kidney function CKD 3a Mild to moderate loss of kidney 45-59 function CKD 3b Moderate to severe loss of 30-44 of kindey function CKD 4 Severe loss of kidney function 15-29 CKD 5 Kidney failure <15 Note: (go live 2024) the eGFR calculation was updated to the 2020 CKD-EPI creatinine equation without a race factor to calculate the eGFR results. Free T3 [Mass/Vol] 2.33 pg/mL Normal 2.30 - 4. 00 pg/mL AO ADM SS Free T4 [Mass/Vol] 1.16 ng/dL Normal 0.76 - 1. 46 ng/dL AO ADM SS Globulin 3.0 G/dL Normal 2.7 - 4.4 G/dL AO ADM SS Glucose [Mass/Vol] 94 mg/dL Normal 83 - 110 mg/dL AO ADM SS Hematocrit (Bld) [Volume fraction] 39.9 % Normal 34.0 - 46.0 % AO Workflow SS Hemoglobin (Bld) [Mass/Vol] 13.4 G/dL Normal 12.0 - 16.0 G/dL AO Workflow SS Lymphocytes (Bld) [#/Vol] 1.5 103/mcL Normal 0.9 - 4.3 10^3/mcL AO Workflow SS Lymphocytes/100 WBC (Bld) 32.6 % Normal 20.0 - 40.0 % AO Workflow SS MCH (RBC) [Entitic mass] 31.1 pg Normal 27.0 - 33.0 pg AO Workflow SS MCHC 33.5 G/dL Normal 32.0 - 36.0 G/dL AO Workflow SS MCV (RBC) [Entitic vol] 92.8 fL Normal 80.0 - 99.0 fL AO Workflow SS Monocytes (Bld) [#/Vol] 0.5 103/mcL Normal 0.1 - 1.4 10^3/mcL AO Workflow SS Monocytes/100 WBC (Bld) 11.5 % Normal 2.0 - 13.0 % AO Workflow SS Neutrophils (Bld) [#/Vol] 2.4 103/mcL Normal 2.3 - 8.1 10^3/mcL AO Workflow SS Neutrophils/100 WBC (Bld) 52.3 % Normal 50.0 - 75.0 % AO Workflow SS Platelet mean volume (Bld) [Entitic vol] 9.9 fL Normal 6.6 - 10.5 fL AO Workflow SS Platelets (Bld) [#/Vol] 140 103/mcL Low 150 - 450 10^3/mcL AO Workflow SS Potassium [Moles/Vol] 4.2 mmol/L Normal 3.5 - 5.1 mmol/L AO ADM SS Protein [Mass/Vol] 6.7 G/dL Normal 6.4 - 8.2 G/dL AO ADM SS RBC (Bld) [#/Vol] 4.30 106/mcL Normal 4.10 - 5.3 0 10^6/mcL AO Workflow SS Sodium [Moles/Vol] 145 mmol/L Normal 136 - 145 mmol/L AO ADM SS TSH Qn 3.63 m[IU]/L Normal 0.36 - 3.74 mcIU/mL AO ADM SS Urea nitrogen [Mass/Vol] 24 mg/dL High 7 - 18 mg/dL AO ADM SS Urea nitrogen/Creatinine [Mass ratio] 27 ratio Normal 7 - 27 ratio AO ADM SS WBC (Bld) [#/Vol] 4.5 103/mcL Normal 4.5 - 10.8 10^3/mcL AO Workflow SS LABORATORYOrdered By: Eleni Hernandez on 10-24-2024 Cholesterol [Mass/Vol] 164 mg/dL Normal 0 - 200 mg/dL AO ADM SS Comment on above: Interpretive Data: C holesterol Reference Interval: Less than 200 Desirable 200-239 Borderline high risk 240 and above High risk Cholesterol in HDL [Mass/Vol] 59 mg/dL Normal 40 - 60 mg/dL AO ADM SS Cholesterol in LDL [Mass/Vol] 94 mg/dL Normal 0 - 130 mg/dL AO ADM SS Triglyceride [Mass/Vol] 55 mg/dL Normal 0 - 150 mg/dL AO ADM SS Comment on above: Interpretive Data: T riglyceride Reference Interval: Less than 150 Normal 150-199 Borderline high risk 200-499 High risk 500 or higher Very high risk LIPIDon 10-24-2024 Cholesterol [Mass/Vol] 164 mg/dL Normal 0-200 [facility] Comment on above: Result Comment: Chol esterol Reference Interval: Less than 200 Desirable 200-239 Borderline high risk 240 and above High risk Performed By: #### L IPID, CBC, TSH, CMP, FT3, GFR, FT4, ADIFF, ANEU #### [address] [address] Cholesterol in HDL [Mass/Vol] 59 mg/dL Normal 40-60 [facility] Comment on above: Performed By: #### L IPID, CBC, TSH, CMP, FT3, GFR, FT4, ADIFF, ANEU #### [address] [address] Cholesterol in LDL [Mass/Vol] 94 mg/dL Normal 0-130 [facility] Comment on above: Performed By: #### L IPID, CBC, TSH, CMP, FT3, GFR, FT4, ADIFF, ANEU #### [address] [place], [place] [address] Triglyceride [Mass/Vol] 55 mg/dL Normal 0-150 [facility] Comment on above: Result Comment: Trig lyceride Reference Interval: Less than 150 Normal 150-199 Borderline high risk 200-499 High risk 500 or higher Very high risk Performed By: #### L IPID, CBC, TSH, CMP, FT3, GFR, FT4, ADIFF, ANEU #### [address] [place], [place] [address] TSHon 10-24-2024 TSH Qn 3.63 m[IU]/L Normal 0.36-3.74 [facility] Comment on above: Performed By: #### L IPID, CBC, TSH, CMP, FT3, GFR, FT4, ADIFF, ANEU #### [address] [address] Pulmonary Visit Reporton Pulmonary Visit Report [facility] of [address] [place] [address] OFFICE VISIT Date of Service: 07/30/24 MR#: [id number] Acct: [id number] Name: LETICIA CARRILLO Rep #: [id number] : 1945 Provider: ELIEZER Nolasco Age/Sex: 79/F Location[place] [facility] [place] Status: Signed Assessment and Plan Assessment and Plan (1) COPD (chronic obstructive pulmonary disease): Status: Chronic Qualifiers: COPD type: emphysema Emphysema type: centrilobular Qualified Code(s): J43.2 - Centrilobular emphysema Comment: FEV1 59% Plan: Stable, she does not appear to be an exacerbation of COPD today. No need for prednisone or antibiotic. Continue current maintenance medication, she is symptomatically controlled with the use of Anoro. No additional testing at this time. Contact the office for any new or worsening symptoms. An acute visit and typically be arranged within 1-2 days. Follow-up in 6 months. (2) Chronic respiratory failure with hypoxia: Status: Chronic Plan: The patient is using and benefiting from oxygen. Continue to utilize to maintain a saturation of 89-92%. Follow-up in 6 months. (3) Pulmonary hypertension: Status: Chronic Comment: RVSP 40mmHg Plan: Symptomatically stable. (4) Obesity (BMI 30-39.9): Status: Chronic Plan: Complicates exam, plan, care and prognosis. Continue to encourage weight loss. Medications: Refilled umeclidinium-vilant holden 62.5-25 mcg/actuation (Anoro Ellipta) 1 inh inhalation Q24H 3 ea 3RF Plan Details Follow Up: 6 Months HPI 6 M FU Chief Complaint: Test results HPI Comments Details: This patient presents to the office today for follow-up of her COPD complicated by pulmonary hypertension and to discuss test results. She is ambulatory with a cane and is currently wearing supplemental oxygen. She has not recently been seen in the ED or urgent care for any respiratory illness. She has not required any antibiotics or prednisone for any breathing problems. She is compliant with use of Anoro daily. She continues complete smoking cessation since 1988. She is compliant with supplemental oxygen. She is using 3 L/min at rest and 4 L/min on exertion. She also utilizes 3 L/min with sleep. She continues with shortness of breath on exertion. She has an occasional cough productive of clear sputum production, she denies any hemoptysis. She denies any wheezing, chest tightness, chest pain or palpitations. She denies any fever, chills or body aches. Test results personally viewed the patient: Overnight oximetry completed on January 31, 2024. Lowest saturation recorded was 88%. Testing was completed on 3 L of oxygen. No changes were recommended. Intake Vital Signs 01/23/24 07:42 07/30/24 08:06 Height 5 ft 7 in 5 ft 7 in Weight: 229 lb BMI 35.9 BP 164/78 H Blood Pressure Location Rt brachial Position Sitting Respiration 20 H Pulse 64 Pulse Source Monitor Temp 97.4 F L Temperature Source Temporal Artery Pulse Oximetry (%) 97 Oxygen Delivery Method nasal canula Oxygen Flow Rate (L/min) 3 Intake Visit Reasons: 6 M FU Chief Complaint: Follow up [employer] Supervisor Required: No DME Vendor: Thomas Accompanied by: Self Allergies pravastatin Allergy (Unknown, Verified 07/30/24 11:06) myalgias fenoprofen (From Nalfon) Allergy (Verified 07/30/24 11:06) Swelling tolmetin (From Tolectin) Allergy (Verified 07/30/24 11:06) Swelling atorvastatin Adverse Reaction (Severe, Verified 07/30/24 11:06) mylagias aspirin Adverse Reaction (Mild, Unverified 07/30/24 11:06) Hives Medications ???Medication ???Instructions ???Recorded ???Confirmed ???Type levothyroxine 50 mcg tablet 50 mcg PO DAILY Thyroid test 01/2407/30/24 History indicates a need nitroglycerin 0.4 mg sublingual 0.4 mg sublingual Q5M PRN 01/24/23 07/30/24 Rx tablet Cardiac/Chest Pain #30 tabs ezetimibe 10 mg tablet (Zetia) 10 mg PO DAILY #90 tabs 01/16/24 0 07/30/24 Rx furosemide 40 mg tablet 40 mg PO DAILY #90 tabs 01/16/24 0 07/30/24 Rx metoprolol succinate 25 mg 25 mg PO DAILY #90 tabs 01/16/24 0 07/30/24 Rx tablet,extended release 24 hr apixaban 5 mg tablet 5 mg PO BID #180 tabs 02/22/24 Rx lisinopril 5 mg tablet 5 mg PO QDAY 07/30/24 07/30/24 His tory potassium chloride 20 mEq 20 meq PO QDAY 07/30/24 07/30/24 H istory tablet,extended release umeclidinium 62.5 mcg-vilanterol 1 inh inhalation Q24H #3 ea 07/30/24 Rx 25 mcg/actuation powdr for inhalation (Anoro Ellipta) Have you fallen in the past year?: No PFSH Medical History Nonobstructive atherosclerosis of coronary artery Essential (primary) hypertension History of non-ST elevation myocardial infarction (more content not included)... Normal [facility] .Auto Diffon 04-30-2024 Basophil, Absolute 0.0 10 3/mcL Normal 0.0-0.2 [facility] Comment on above: Performed By: #### L IPID, CBC, TSH, CMP, FT3, GFR, FT4, ADIFF, ANEU #### [address] [address] Basophils/100 WBC (Bld) 0.6 % Normal 0.0-2.5 [facility] Comment on above: Performed By: #### L IPID, CBC, TSH, CMP, FT3, GFR, FT4, ADIFF, ANEU #### [address] [address] Eosinophil, Absolute 0.2 10 3/mcL Normal 0.0-0.7 [facility] Comment on above: Performed By: #### L IPID, CBC, TSH, CMP, FT3, GFR, FT4, ADIFF, ANEU #### [address] [address] Eosinophils/100 WBC (Bld) 2.9 % Normal 0.0-7.0 [facility] Comment on above: Performed By: #### L IPID, CBC, TSH, CMP, FT3, GFR, FT4, ADIFF, ANEU #### [address] [address] Lymphocyte, Absolute 1.6 10 3/mcL Normal 0.9-4.3 [facility] Comment on above: Performed By: #### L IPID, CBC, TSH, CMP, FT3, GFR, FT4, ADIFF, ANEU #### [address] [address] Lymphocytes/100 WBC (Bld) 29.9 % Normal 20.0-40.0 [facility] Comment on above: Performed By: #### L IPID, CBC, TSH, CMP, FT3, GFR, FT4, ADIFF, ANEU #### [address] [address] Monocyte, Absolute 0.6 10 3/mcL Normal 0.1-1.4 [facility] Comment on above: Performed By: #### L IPID, CBC, TSH, CMP, FT3, GFR, FT4, ADIFF, ANEU #### [address] [address] Monocytes/100 WBC (Bld) 10.9 % Normal 2.0-13.0 [facility] Comment on above: Performed By: #### L IPID, CBC, TSH, CMP, FT3, GFR, FT4, ADIFF, ANEU #### [address] [address] Neutrophils/100 WBC (Bld) 55.7 % Normal 50.0-75.0 [facility] Comment on above: Performed By: #### L IPID, CBC, TSH, CMP, FT3, GFR, FT4, ADIFF, ANEU #### [address] [address] .GFRon 04-30-2024 GFR 65 ml/min/1.73sqm Normal [facility] Comment on above: Result Comment: GFR Population mean for , Non- Americans Ages 20-29 = 116 mL/min/1.73 sq.m. Ages 30-39 = 107 mL/min/1.73 sq.m. Ages 40-49 = 99 mL/min/1.73 sq.m. Ages 50-59 = 93 mL/min/1.73 sq.m. Ages 60-69 = 85 mL/min/1.73 sq.m. Ages 70+ = 75 mL/min/1.73 sq.m. Chronic Kidney Disease: Less than 60 mL/min/1.73 square meters End Stage Renal Disease: Less than 15 mL/min/1.73 square meters Performed By: #### L IPID, CBC, TSH, CMP, FT3, GFR, FT4, ADIFF, ANEU #### [address] [address] GFR Non- 53 ml/min/1.73sqm Normal [facility] Comment on above: Result Comment: GFR Population mean for , Non- Americans Ages 20-29 = 116 mL/min/1.73 sq.m. Ages 30-39 = 107 mL/min/1.73 sq.m. Ages 40-49 = 99 mL/min/1.73 sq.m. Ages 50-59 = 93 mL/min/1.73 sq.m. Ages 60-69 = 85 mL/min/1.73 sq.m. Ages 70+ = 75 mL/min/1.73 sq.m. Chronic Kidney Disease: Less than 60 mL/min/1.73 square meters End Stage Renal Disease: Less than 15 mL/min/1.73 square meters Performed By: #### L IPID, CBC, TSH, CMP, FT3, GFR, FT4, ADIFF, ANEU #### [address] [address] .NEUABSon 04-30-2024 Neutrophil, Absolute 2.9 10 3/mcL Normal 2.3-8.1 [facility] Comment on above: Performed By: #### L IPID, CBC, TSH, CMP, FT3, GFR, FT4, ADIFF, ANEU #### [place] [address] CBCon 04-30-2024 Erythrocyte distribution width (RBC) [Ratio] 13.7 % Normal 11.5-15.5 [facility] Comment on above: Performed By: #### L IPID, CBC, TSH, CMP, FT3, GFR, FT4, ADIFF, ANEU #### [place] [address] Hematocrit (Bld) [Volume fraction] 42.0 % Normal 34.0-46.0 [facility] Comment on above: Performed By: #### L IPID, CBC, TSH, CMP, FT3, GFR, FT4, ADIFF, ANEU #### [address] [address] Hgb 14.2 G/dL Normal 12.0-16.0 [facility] Comment on above: Performed By: #### L IPID, CBC, TSH, CMP, FT3, GFR, FT4, ADIFF, ANEU #### [place] [address] MCH (RBC) [Entitic mass] 31.5 pg Normal 27.0-33.0 [facility] Comment on above: Performed By: #### L IPID, CBC, TSH, CMP, FT3, GFR, FT4, ADIFF, ANEU #### [address] [address] MCHC 33.7 G/dL Normal 32.0-36.0 [facility] Comment on above: Performed By: #### L IPID, CBC, TSH, CMP, FT3, GFR, FT4, ADIFF, ANEU #### [address] [address] MCV (RBC) [Entitic vol] 93.5 fL Normal 80.0-99.0 [facility] Comment on above: Performed By: #### L IPID, CBC, TSH, CMP, FT3, GFR, FT4, ADIFF, ANEU #### [place] [address] Platelet 151 10 3/mcL Normal 150-450 [facility] Comment on above: Performed By: #### L IPID, CBC, TSH, CMP, FT3, GFR, FT4, ADIFF, ANEU #### [place] [address] Platelet mean volume (Bld) [Entitic vol] 9.9 fL Normal 6.6-10.5 [facility] Comment on above: Performed By: #### L IPID, CBC, TSH, CMP, FT3, GFR, FT4, ADIFF, ANEU #### [place] [address] RBC 4.50 10 6/mcL Normal 4.10-5.30 [facility] Comment on above: Performed By: #### L IPID, CBC, TSH, CMP, FT3, GFR, FT4, ADIFF, ANEU #### [place] [id number] WBC 5.2 10 3/mcL Normal 4.5-10.8 [facility] Comment on above: Performed By: #### L IPID, CBC, TSH, CMP, FT3, GFR, FT4, ADIFF, ANEU #### [address] [address] CMPon 04-30-2024 Albumin Level 3.8 G/dL Normal 3.4-4.8 [facility] Comment on above: Performed By: #### L IPID, CBC, TSH, CMP, FT3, GFR, FT4, ADIFF, ANEU #### [address] [address] Albumin/Globulin [Mass ratio] 1.2 {ratio} Normal 1.1-2.5 [facility] Comment on above: Performed By: #### L IPID, CBC, TSH, CMP, FT3, GFR, FT4, ADIFF, ANEU #### [address] [address] ALP [Catalytic activity/Vol] 140 U/L High 40-135 [facility] Comment on above: Performed By: #### L IPID, CBC, TSH, CMP, FT3, GFR, FT4, ADIFF, ANEU #### [address] [address] ALT [Catalytic activity/Vol] 25 U/L Normal 14-59 [facility] Comment on above: Performed By: #### L IPID, CBC, TSH, CMP, FT3, GFR, FT4, ADIFF, ANEU #### [address] [address] AST [Catalytic activity/Vol] 25 U/L Normal 10-40 [facility] Comment on above: Performed By: #### L IPID, CBC, TSH, CMP, FT3, GFR, FT4, ADIFF, ANEU #### [address] [address] Bili Total 0.6 mg/dL Normal 0.2-1.0 [facility] Comment on above: Result Comment: Use of this assay is not recommended for patients undergoing treatment with eltrombopag due to the potential for falsely elevated results. Performed By: #### L IPID, CBC, TSH, CMP, FT3, GFR, FT4, ADIFF, ANEU #### [place] [address] [place], [place] [address] BUN/Creatinine Ratio 22 ratio Normal 7-27 [facility] Comment on above: Performed By: #### L IPID, CBC, TSH, CMP, FT3, GFR, FT4, ADIFF, ANEU #### [place] [address] Calcium [Mass/Vol] 9.5 mg/dL Normal 8.4-10.2 [facility] Comment on above: Performed By: #### L IPID, CBC, TSH, CMP, FT3, GFR, FT4, ADIFF, ANEU #### [place] [address] Chloride [Moles/Vol] 105 mmol/L Normal 98-107 [facility] Comment on above: Performed By: #### L IPID, CBC, TSH, CMP, FT3, GFR, FT4, ADIFF, ANEU #### [place] [address] CO2 [Moles/Vol] 30 mmol/L Normal 23-31 [facility] Comment on above: Performed By: #### L IPID, CBC, TSH, CMP, FT3, GFR, FT4, ADIFF, ANEU #### [place] [address] Creatinine [Mass/Vol] 1.00 mg/dL Normal 0.55-1.02 [facility] Comment on above: Result Comment: Test ing performed on Siemens Dimension EXL analyzer using a modified kinetic Mir technique. Performed By: #### L IPID, CBC, TSH, CMP, FT3, GFR, FT4, ADIFF, ANEU #### [place] [address] Electrolyte Balance 8.0 mEq/L Normal 4.0-15.0 [facility] Comment on above: Performed By: #### L IPID, CBC, TSH, CMP, FT3, GFR, FT4, ADIFF, ANEU #### [place] [address] Globulin 3.2 G/dL Normal [facility] Comment on above: Performed By: #### L IPID, CBC, TSH, CMP, FT3, GFR, FT4, ADIFF, ANEU #### [address] [address] Glucose [Mass/Vol] 96 mg/dL Normal 83-110 [facility] Comment on above: Performed By: #### L IPID, CBC, TSH, CMP, FT3, GFR, FT4, ADIFF, ANEU #### [address] [address] Potassium [Moles/Vol] 4.4 mmol/L Normal 3.5-5.1 [facility] Comment on above: Performed By: #### L IPID, CBC, TSH, CMP, FT3, GFR, FT4, ADIFF, ANEU #### [address] [address] Sodium [Moles/Vol] 143 mmol/L Normal 136-145 [facility] Comment on above: Performed By: #### L IPID, CBC, TSH, CMP, FT3, GFR, FT4, ADIFF, ANEU #### [address] [address] Total Protein 7.0 G/dL Normal 6.4-8.2 [facility] Comment on above: Performed By: #### L IPID, CBC, TSH, CMP, FT3, GFR, FT4, ADIFF, ANEU #### [address] [address] Urea nitrogen [Mass/Vol] 22 mg/dL High 7-18 [facility] Comment on above: Performed By: #### L IPID, CBC, TSH, CMP, FT3, GFR, FT4, ADIFF, ANEU #### [address] [address] FT3on 04-30-2024 Free T3 [Mass/Vol] 2.67 pg/mL Normal 2.30-4.00 [facility] Comment on above: Performed By: #### L IPID, CBC, TSH, CMP, FT3, GFR, FT4, ADIFF, ANEU #### [address] [place], [place] [address] FT4on 04-30-2024 Free T4 [Mass/Vol] 1.17 ng/dL Normal 0.76-1.46 [facility] Comment on above: Performed By: #### L IPID, CBC, TSH, CMP, FT3, GFR, FT4, ADIFF, ANEU #### [place] [address] [place], [place] [address] LABORATORYOrdered By: SYSTEM SYSTEM on 04-30-2024 Albumin BCP dye [Mass/Vol] 3.8 G/dL Normal 3.4 - 4.8 G/dL AO ADM SS Albumin/Globulin [Mass ratio] 1.2 {ratio} Normal 1.1 - 2.5 ratio AO ADM SS ALP [Catalytic activity/Vol] 140 U/L High 40 - 135 U/L AO ADM SS ALT With P-5'-P [Catalytic activity/Vol] 25 U/L Normal 14 - 59 U/L AO ADM SS AST With P-5'-P [Catalytic activity/Vol] 25 U/L Normal 10 - 40 U/L AO ADM SS Basophils (Bld) [#/Vol] 0.0 103/mcL Normal 0.0 - 0.2 10^3/mcL AO Workflow SS Basophils/100 WBC (Bld) 0.6 % Normal 0.0 - 2.5 % AO Workflow SS Bilirubin [Mass/Vol] 0.6 mg/dL Normal 0.2 - 1 .0 mg/dL AO ADM SS Comment on above: Interpretive Data: U se of this assay is not recommended for patients undergoing treatment with eltrombopag due to the potential for falsely elevated results. Calcium [Mass/Vol] 9.5 mg/dL Normal 8.4 - 10. 2 mg/dL AO ADM SS Chloride [Moles/Vol] 105 mmol/L Normal 98 - 10 7 mmol/L AO ADM SS CO2 [Moles/Vol] 30 mmol/L Normal 23 - 31 mmol/L AO ADM SS Creatinine [Mass/Vol] 1.00 mg/dL Normal 0.55 - 1.02 mg/dL AO ADM SS Comment on above: Interpretive Data: T esting performed on Siemens Dimension EXL analyzer using a modified kinetic Mir technique. Electrolyte Balance 8.0 mEq/L Normal 4.0 - 15 .0 mEq/L AO ADM SS Eosinophil, Absolute 0.2 103/mcL Normal 0.0 - 0 .7 10^3/mcL AO Workflow SS Eosinophils/100 WBC (Bld) 2.9 % Normal 0.0 - 7.0 % AO Workflow SS Erythrocyte distribution width (RBC) [Ratio] 13.7 % Normal 11.5 - 15.5 % AO Workflow SS Free T3 [Mass/Vol] 2.67 pg/mL Normal 2.30 - 4. 00 pg/mL AO ADM SS Free T4 [Mass/Vol] 1.17 ng/dL Normal 0.76 - 1. 46 ng/dL AO ADM SS GFR/1.73 sq M.predicted among blacks MDRD (S/P/Bld) [Vol rate/Area] 65 ml/min/1.73sqm Invalid Interpretation Code AO Chemistry S Comment on above: Interpretive Data: GFR Population mean for , Non- Americans Ages 20-29 = 116 mL/min/1.73 sq.m. Ages 30-39 = 107 mL/min/1.73 sq.m. Ages 40-49 = 99 mL/min/1.73 sq.m. Ages 50-59 = 93 mL/min/1.73 sq.m. Ages 60-69 = 85 mL/min/1.73 sq.m. Ages 70+ = 75 mL/min/1.73 sq.m. Chronic Kidney Disease: Less than 60 mL/min/1.73 square meters End Stage Renal Disease: Less than 15 mL/min/1.73 square meters GFR/1.73 sq M.predicted among non-blacks MDRD (S/P/Bld) [Vol rate/Area] 53 ml/min/1.73sqm Invalid Interpretation Code AO Chemistry S Comment on above: Interpretive Data: GFR Population mean for , Non- Americans Ages 20-29 = 116 mL/min/1.73 sq.m. Ages 30-39 = 107 mL/min/1.73 sq.m. Ages 40-49 = 99 mL/min/1.73 sq.m. Ages 50-59 = 93 mL/min/1.73 sq.m. Ages 60-69 = 85 mL/min/1.73 sq.m. Ages 70+ = 75 mL/min/1.73 sq.m. Chronic Kidney Disease: Less than 60 mL/min/1.73 square meters End Stage Renal Disease: Less than 15 mL/min/1.73 square meters Globulin 3.2 G/dL Invalid Interpretation Code AO ADM SS Glucose [Mass/Vol] 96 mg/dL Normal 83 - 110 mg/dL AO ADM SS Hematocrit (Bld) [Volume fraction] 42.0 % Normal 34.0 - 46.0 % AO Workflow SS Hemoglobin (Bld) [Mass/Vol] 14.2 G/dL Normal 12.0 - 16.0 G/dL AO Workflow SS Lymphocytes (Bld) [#/Vol] 1.6 103/mcL Normal 0.9 - 4.3 10^3/mcL AO Workflow SS Lymphocytes/100 WBC (Bld) 29.9 % Normal 20.0 - 40.0 % AO Workflow SS MCH (RBC) [Entitic mass] 31.5 pg Normal 27.0 - 33.0 pg AO Workflow SS MCHC 33.7 G/dL Normal 32.0 - 36.0 G/dL AO Workflow SS MCV (RBC) [Entitic vol] 93.5 fL Normal 80.0 - 99.0 fL AO Workflow SS Monocytes (Bld) [#/Vol] 0.6 103/mcL Normal 0.1 - 1.4 10^3/mcL AO Workflow SS Monocytes/100 WBC (Bld) 10.9 % Normal 2.0 - 13.0 % AO Workflow SS Neutrophils (Bld) [#/Vol] 2.9 103/mcL Normal 2.3 - 8.1 10^3/mcL AO Workflow SS Neutrophils/100 WBC (Bld) 55.7 % Normal 50.0 - 75.0 % AO Workflow SS Platelet mean volume (Bld) [Entitic vol] 9.9 fL Normal 6.6 - 10.5 fL AO Workflow SS Platelets (Bld) [#/Vol] 151 103/mcL Normal 150 - 450 10^3/mcL AO Workflow SS Potassium [Moles/Vol] 4.4 mmol/L Normal 3.5 - 5.1 mmol/L AO ADM SS Protein [Mass/Vol] 7.0 G/dL Normal 6.4 - 8.2 G/dL AO ADM SS RBC (Bld) [#/Vol] 4.50 106/mcL Normal 4.10 - 5.3 0 10^6/mcL AO Workflow SS Sodium [Moles/Vol] 143 mmol/L Normal 136 - 145 mmol/L AO ADM SS TSH Qn 3.42 m[IU]/L Normal 0.36 - 3.74 mcIU/mL AO ADM SS Urea nitrogen [Mass/Vol] 22 mg/dL High 7 - 18 mg/dL AO ADM SS Urea nitrogen/Creatinine [Mass ratio] 22 ratio Normal 7 - 27 ratio AO ADM SS WBC (Bld) [#/Vol] 5.2 103/mcL Normal 4.5 - 10.8 10^3/mcL AO Workflow SS LABORATORYOrdered By: Anita Carter on 04-30-2024 Cholesterol [Mass/Vol] 180 mg/dL Normal 0 - 200 mg/dL AO ADM SS Comment on above: Interpretive Data: C holesterol Reference Interval: Less than 200 Desirable 200-239 Borderline high risk 240 and above High risk Cholesterol in HDL [Mass/Vol] 59 mg/dL Normal 40 - 60 mg/dL AO ADM SS Cholesterol in LDL [Mass/Vol] 104 mg/dL Normal 0 - 130 mg/dL AO ADM SS Triglyceride [Mass/Vol] 86 mg/dL Normal 0 - 150 mg/dL AO ADM SS Comment on above: Interpretive Data: T riglyceride Reference Interval: Less than 150 Normal 150-199 Borderline high risk 200-499 High risk 500 or higher Very high risk LIPIDon 04-30-2024 Cholesterol [Mass/Vol] 180 mg/dL Normal 0-200 [facility] Comment on above: Result Comment: Chol esterol Reference Interval: Less than 200 Desirable 200-239 Borderline high risk 240 and above High risk Performed By: #### L IPID, CBC, TSH, CMP, FT3, GFR, FT4, ADIFF, ANEU #### [address] [place], [place] [address] Cholesterol in HDL [Mass/Vol] 59 mg/dL Normal 40-60 [facility] Comment on above: Performed By: #### L IPID, CBC, TSH, CMP, FT3, GFR, FT4, ADIFF, ANEU #### [place] [address] [place], [place] [address] Cholesterol in LDL [Mass/Vol] 104 mg/dL Normal 0-130 [facility] Comment on above: Performed By: #### L IPID, CBC, TSH, CMP, FT3, GFR, FT4, ADIFF, ANEU #### [address] [address] Triglyceride [Mass/Vol] 86 mg/dL Normal 0-150 [facility] Comment on above: Result Comment: Trig lyceride Reference Interval: Less than 150 Normal 150-199 Borderline high risk 200-499 High risk 500 or higher Very high risk Performed By: #### L IPID, CBC, TSH, CMP, FT3, GFR, FT4, ADIFF, ANEU #### [address] [address] TSHon 04-30-2024 TSH Qn 3.42 m[IU]/L Normal 0.36-3.74 [facility] Comment on above: Performed By: #### L IPID, CBC, TSH, CMP, FT3, GFR, FT4, ADIFF, ANEU #### [address] [address] [place] MAMMOGRAM SCREENING BILAT ERAL W/TOMOon 11-20-2023 MA MAMMOGRAM SCREENING BILATERAL W/FORTUNATO ORIGINAL FROM: [place] [address] PROCEDURE FOR: LETICIA CARRILLO [id number] [address] Home: PID#: [id number] Exam#: [id number] : 1945 Age: 78 TO: JOSE MEEHAN DO [address] [place] [address] Fax: NO FAX EXAMINATION: SCREENING DIGITAL BILATERAL MAMMOGRAM WITH TOMOSYNTHESIS, 11/17/2023 1:34 pm TECHNIQUE: Screening mammography of the bilateral breasts was performed with tomosynthesis. 2D standard and 3D tomosynthesis combination imaging performed through both breasts in the MLO and CC projection. Computer aided detection was utilized in the interpretation of this exam. COMPARISON: November 16, 2021, May 13, 2020, September 25, 2017 HISTORY: Breast cancer screening. FINDINGS: BREAST DENSITY: There are scattered areas of fibroglandular density. There are bilateral benign-type calcifications. There is no significant mass, architectural distortion or microcalcification. Fibroglandular pattern is stable. IMPRESSION: No mammographic evidence of malignancy. Continued screening with annual mammograms is recommended. Ankur zick risk calculations, generated with the history provided, report this patient's lifetime risk for developing breast cancer at 3.7%. Based on this assessment tool, if the patient's calculated lifetime risk is below 20%, then the patient is considered at average risk for developing breast cancer. If the patient's calculated lifetime risk is at or above 20%, then the patient is considered high risk for developing breast cancer and may be a candidate for supplemental breast MRI screening in addition to annual mammographic screening per the [employer]. BIRADS: MAMMOGRAM BI-RADS: 2: Benign finding RECALL: 1 year screening RECALL TYPE: mammo LETTER SENT: Normal BI-RADS 1 and 2 Interpreted by: Leslye Trejo Preliminary Report By: Leslye Trejo Electronically signed By Leslye Trejo Dictated Date: 11/20/2023 6:50:35 AM Prelim Date: 11/20/2023 6:56:24 AM Sign Date: 11/20/2023 6:56:24 AM Ordering Provider: JOSE MEEHAN Pocket Maker: SHELLY BLAIR RT(R)(M)(CT) letter sent: Normal BI-RADS 1 and 2 Mammogram BI-RADS: 2 Benign [facility] BD BONE DENSITY DEXA AXIAL S [facility] 11-17-2023 BD BONE DENSITY DEXA AXIAL [facility] ORIGINAL EXAMINATION: BONE DENSITOMETRY 1:57 pm TECHNIQUE: Dual energy bone densitometry lumbar spine and left forearm on a [employer] system. COMPARISON: 11/24/2021 HISTORY: ORDERING SYSTEM PROVIDED HISTORY: Reason for Exam: screening FINDINGS: Total bone mineral density of the L1-L4 is 1.581 grams per square centimeters, and T-score being 4.9, indicating that this patient has normal bone mineral density. Previous T-score of 4.8. Bone mineral density of the distal 1/3rd of the left forearm is 0.700 grams per square centimeters, and T-score being 0.3, indicating that this patient has normal bone mineral density. Previous T-score of 1.5. FRAX score not reported due to T-scores at or above -1.0. IMPRESSION: Normal bone mineral density. I have personally reviewed the images of this examination and agree with the resident's findings and interpretation. Interpreted by: Leticia Anguiano Preliminary Report By: Estuardo Benoit Electronically signed By Leticia Anguiano Dictated Date: 11/17/2023 1:59:33 PM Prelim Date: 11/17/2023 2:06:57 PM Sign Date: 11/17/2023 2:06:57 PM Ordering Provider: JOSE [facility] ([place]) .Auto Diffon 10-20-2023 Basophil, Absolute 0.0 10 3/mcL Normal 0.0-0.2 [facility] ([place]) Comment on above: Performed By: #### F T4, ANEU, CBC, GFR, TSH, CMP, ADIFF, LIPID, FT3 #### [address] [address] Basophils/100 WBC (Bld) 0.5 % Normal 0.0-2.5 [facility] ([place]) Comment on above: Performed By: #### F T4, ANEU, CBC, GFR, TSH, CMP, ADIFF, LIPID, FT3 #### [address] [address] Eosinophil, Absolute 0.1 10 3/mcL Normal 0.0-0.4 [facility] ([place]) Comment on above: Performed By: #### F T4, ANEU, CBC, GFR, TSH, CMP, ADIFF, LIPID, FT3 #### [address] [address] Eosinophils/100 WBC (Bld) 2.7 % Normal 0.0-7.0 [facility] ([place]) Comment on above: Performed By: #### F T4, ANEU, CBC, GFR, TSH, CMP, ADIFF, LIPID, FT3 #### [address] [address] Lymphocyte, Absolute 1.6 10 3/mcL Normal 0.8-3.9 [facility] ([place]) Comment on above: Performed By: #### F T4, ANEU, CBC, GFR, TSH, CMP, ADIFF, LIPID, FT3 #### [address] [address] Lymphocytes/100 WBC (Bld) 32.0 % Normal 10.0-50.0 [facility] ([place]) Comment on above: Performed By: #### F T4, ANEU, CBC, GFR, TSH, CMP, ADIFF, LIPID, FT3 #### [address] [address] Monocyte, Absolute 0.5 10 3/mcL Normal 0.2-1.0 [facility] ([place] Comment on above: Performed By: #### F T4, ANEU, CBC, GFR, TSH, CMP, ADIFF, LIPID, FT3 #### [address] [address] Monocytes/100 WBC (Bld) 10.3 % Normal 1.7-13.0 [facility] ([place]) Comment on above: Performed By: #### F T4, ANEU, CBC, GFR, TSH, CMP, ADIFF, LIPID, FT3 #### [address] [address] Neutrophils/100 WBC (Bld) 54.5 % Normal 37.0-80.0 [facility] ([place]) Comment on above: Performed By: #### F T4, ANEU, CBC, GFR, TSH, CMP, ADIFF, LIPID, FT3 #### [address] [address] .GFRon 10-20-2023 GFR Non- 58 ml/min/1.73sqm Normal [facility] ([place]) Comment on above: Result Comment: GFR Population mean for , Non- Americans Ages 20-29 = 116 mL/min/1.73 sq.m. Ages 30-39 = 107 mL/min/1.73 sq.m. Ages 40-49 = 99 mL/min/1.73 sq.m. Ages 50-59 = 93 mL/min/1.73 sq.m. Ages 60-69 = 85 mL/min/1.73 sq.m. Ages 70+ = 75 mL/min/1.73 sq.m. Chronic Kidney Disease: Less than 60 mL/min/1.73 square meters End Stage Renal Disease: Less than 15 mL/min/1.73 square meters Performed By: #### F T4, ANEU, CBC, GFR, TSH, CMP, ADIFF, LIPID, FT3 #### [address] [address] GFR 71 ml/min/1.73sqm Normal [facility] ([place]) Comment on above: Result Comment: GFR Population mean for , Non- Americans Ages 20-29 = 116 mL/min/1.73 sq.m. Ages 30-39 = 107 mL/min/1.73 sq.m. Ages 40-49 = 99 mL/min/1.73 sq.m. Ages 50-59 = 93 mL/min/1.73 sq.m. Ages 60-69 = 85 mL/min/1.73 sq.m. Ages 70+ = 75 mL/min/1.73 sq.m. Chronic Kidney Disease: Less than 60 mL/min/1.73 square meters End Stage Renal Disease: Less than 15 mL/min/1.73 square meters Performed By: #### F T4, ANEU, CBC, GFR, TSH, CMP, ADIFF, LIPID, FT3 #### [address] [address] .NEUABSon 10-20-2023 Neutrophil, Absolute 2.7 10 3/mcL Low 2.9-6.2 [facility] ([place]) Comment on above: Performed By: #### F T4, ANEU, CBC, GFR, TSH, CMP, ADIFF, LIPID, FT3 #### [address] [address] CBCon 10-20-2023 Erythrocyte distribution width (RBC) [Ratio] 13.4 % Normal 11.5-14.5 [facility] ([place]) Comment on above: Performed By: #### F T4, ANEU, CBC, GFR, TSH, CMP, ADIFF, LIPID, FT3 #### [address] [address] Hematocrit (Bld) [Volume fraction] 40.7 % Normal 37.0-47.0 [facility] ([place]) Comment on above: Performed By: #### F T4, ANEU, CBC, GFR, TSH, CMP, ADIFF, LIPID, FT3 #### [address] [address] Hgb 13.8 G/dL Normal 12.0-16.0 [facility] ([place]) Comment on above: Performed By: #### F T4, ANEU, CBC, GFR, TSH, CMP, ADIFF, LIPID, FT3 #### [address] [address] MCH (RBC) [Entitic mass] 31.6 pg High 27.0-31.2 [facility] ([place]) Comment on above: Performed By: #### F T4, ANEU, CBC, GFR, TSH, CMP, ADIFF, LIPID, FT3 #### [address] [address] MCHC 33.9 G/dL Normal 33.0-37.0 [facility] ([place]) Comment on above: Performed By: #### F T4, ANEU, CBC, GFR, TSH, CMP, ADIFF, LIPID, FT3 #### [address] [address] MCV (RBC) [Entitic vol] 93.1 fL Normal 80.0-94.0 [facility] ([place]) Comment on above: Performed By: #### F T4, ANEU, CBC, GFR, TSH, CMP, ADIFF, LIPID, FT3 #### [address] [address] Platelet 146 10 3/mcL Normal 130-400 [facility] ([place]) Comment on above: Performed By: #### F T4, ANEU, CBC, GFR, TSH, CMP, ADIFF, LIPID, FT3 #### [address] [address] Platelet mean volume (Bld) [Entitic vol] 9.7 fL Normal 7.4-10.4 [facility] ([place]) Comment on above: Performed By: #### F T4, ANEU, CBC, GFR, TSH, CMP, ADIFF, LIPID, FT3 #### [address] [address] RBC 4.38 10 6/mcL Normal 4.20-5.40 [facility] ([place]) Comment on above: Performed By: #### F T4, ANEU, CBC, GFR, TSH, CMP, ADIFF, LIPID, FT3 #### [address] [address] WBC 4.9 10 3/mcL Normal 4.6-10.8 [facility] ([place]) Comment on above: Performed By: #### F T4, ANEU, CBC, GFR, TSH, CMP, ADIFF, LIPID, FT3 #### [address] [address] CMPon 10-20-2023 Albumin Level 3.5 G/dL Normal 3.4-4.8 [facility] ([place]) Comment on above: Performed By: #### F T4, ANEU, CBC, GFR, TSH, CMP, ADIFF, LIPID, FT3 #### [address] [address] Albumin/Globulin [Mass ratio] 1.3 {ratio} Normal 1.1-2.5 [facility]) Comment on above: Performed By: #### F T4, ANEU, CBC, GFR, TSH, CMP, ADIFF, LIPID, FT3 #### [address] [address] ALP [Catalytic activity/Vol] 121 U/L Normal 40-135 [facility]) Comment on above: Performed By: #### F T4, ANEU, CBC, GFR, TSH, CMP, ADIFF, LIPID, FT3 #### [address] [address] ALT [Catalytic activity/Vol] 30 U/L Normal 14-59 [facility] ([place]) Comment on above: Performed By: #### F T4, ANEU, CBC, GFR, TSH, CMP, ADIFF, LIPID, FT3 #### [address] [address] AST [Catalytic activity/Vol] 24 U/L Normal 10-40 [facility]) Comment on above: Performed By: #### F T4, ANEU, CBC, GFR, TSH, CMP, ADIFF, LIPID, FT3 #### [address] [address] Bili Total 0.5 mg/dL Normal 0.2-1.0 [facility]) Comment on above: Result Comment: Use of this assay is not recommended for patients undergoing treatment with eltrombopag due to the potential for falsely elevated results. Performed By: #### F T4, ANEU, CBC, GFR, TSH, CMP, ADIFF, LIPID, FT3 #### [address] [address] BUN/Creatinine Ratio 23 ratio Normal 7-27 [facility]) Comment on above: Performed By: #### F T4, ANEU, CBC, GFR, TSH, CMP, ADIFF, LIPID, FT3 #### [address] [address] Calcium [Mass/Vol] 8.8 mg/dL Normal 8.4-10.2 [facility] ([place]) Comment on above: Performed By: #### F T4, ANEU, CBC, GFR, TSH, CMP, ADIFF, LIPID, FT3 #### [address] [address] Chloride [Moles/Vol] 106 mmol/L Normal 98-107 [facility]) Comment on above: Performed By: #### F T4, ANEU, CBC, GFR, TSH, CMP, ADIFF, LIPID, FT3 #### [address] [address] CO2 [Moles/Vol] 30 mmol/L Normal 23-31 [facility] ([place]) Comment on above: Performed By: #### F T4, ANEU, CBC, GFR, TSH, CMP, ADIFF, LIPID, FT3 #### [address] [address] Creatinine [Mass/Vol] 0.93 mg/dL Normal 0.55-1.02 [facility] ([place]) Comment on above: Performed By: #### F T4, ANEU, CBC, GFR, TSH, CMP, ADIFF, LIPID, FT3 #### [address] [address] Electrolyte Balance 10.0 mEq/L Normal 4.0-15.0 [facility] ([place]) Comment on above: Performed By: #### F T4, ANEU, CBC, GFR, TSH, CMP, ADIFF, LIPID, FT3 #### [address] [address] Globulin 2.6 G/dL Normal [facility] ([place]) Comment on above: Performed By: #### F T4, ANEU, CBC, GFR, TSH, CMP, ADIFF, LIPID, FT3 #### [address] [address] Glucose [Mass/Vol] 88 mg/dL Normal 83-110 [facility] ([place]) Comment on above: Performed By: #### F T4, ANEU, CBC, GFR, TSH, CMP, ADIFF, LIPID, FT3 #### [address] [address] Potassium [Moles/Vol] 3.4 mmol/L Low 3.5-5.1 [facility] ([place]) Comment on above: Performed By: #### F T4, ANEU, CBC, GFR, TSH, CMP, ADIFF, LIPID, FT3 #### [address] [address] Sodium [Moles/Vol] 146 mmol/L High 136-145 [facility] ([place]) Comment on above: Performed By: #### F T4, ANEU, CBC, GFR, TSH, CMP, ADIFF, LIPID, FT3 #### [address] [address] Total Protein 6.1 G/dL Low 6.4-8.2 [facility] ([place]) Comment on above: Performed By: #### F T4, ANEU, CBC, GFR, TSH, CMP, ADIFF, LIPID, FT3 #### [address] [address] Urea nitrogen [Mass/Vol] 21 mg/dL High 7-18 [facility] ([place]) Comment on above: Performed By: #### F T4, ANEU, CBC, GFR, TSH, CMP, ADIFF, LIPID, FT3 #### [address] [address] FT3on 10-20-2023 Free T3 [Mass/Vol] 2.24 pg/mL Low 2.30-4.00 [facility] ([place]) Comment on above: Performed By: #### F T4, ANEU, CBC, GFR, TSH, CMP, ADIFF, LIPID, FT3 #### [address] [address] FT4on 10-20-2023 Free T4 [Mass/Vol] 1.09 ng/dL Normal 0.76-1.46 [facility] ([place]) Comment on above: Performed By: #### F T4, ANEU, CBC, GFR, TSH, CMP, ADIFF, LIPID, FT3 #### [address] [address] LABORATORYOrdered By: SYSTEM SYSTEM on 10-20-2023 Albumin BCP dye [Mass/Vol] 3.5 G/dL Normal 3.4 - 4.8 G/dL AO ADM SS Albumin/Globulin [Mass ratio] 1.3 {ratio} Normal 1.1 - 2.5 ratio AO ADM SS ALP [Catalytic activity/Vol] 121 U/L Normal 40 - 135 U/L AO ADM SS ALT With P-5'-P [Catalytic activity/Vol] 30 U/L Normal 14 - 59 U/L AO ADM SS AST With P-5'-P [Catalytic activity/Vol] 24 U/L Normal 10 - 40 U/L AO ADM SS Basophil, Absolute 0.0 103/mcL Normal 0.0 - 0.2 10^3/mcL AO Workflow SS Basophils/100 WBC (Bld) 0.5 % Normal 0.0 - 2.5 % AO Workflow SS Bilirubin [Mass/Vol] 0.5 mg/dL Normal 0.2 - 1 .0 mg/dL AO ADM SS Comment on above: Interpretive Data: U se of this assay is not recommended for patients undergoing treatment with eltrombopag due to the potential for falsely elevated results. Calcium [Mass/Vol] 8.8 mg/dL Normal 8.4 - 10. 2 mg/dL AO ADM SS Chloride [Moles/Vol] 106 mmol/L Normal 98 - 10 7 mmol/L AO ADM SS CO2 [Moles/Vol] 30 mmol/L Normal 23 - 31 mmol/L AO ADM SS Creatinine [Mass/Vol] 0.93 mg/dL Normal 0.55 - 1.02 mg/dL AO ADM SS Electrolyte Balance 10.0 mEq/L Normal 4.0 - 15 .0 mEq/L AO ADM SS Eosinophil, Absolute 0.1 103/mcL Normal 0.0 - 0 .4 10^3/mcL AO Workflow SS Eosinophils/100 WBC (Bld) 2.7 % Normal 0.0 - 7.0 % AO Workflow SS Erythrocyte distribution width (RBC) [Ratio] 13.4 % Normal 11.5 - 14.5 % AO Workflow SS Free T3 [Mass/Vol] 2.24 pg/mL Low 2.30 - 4. 00 pg/mL AO ADM SS Free T4 [Mass/Vol] 1.09 ng/dL Normal 0.76 - 1. 46 ng/dL AO ADM SS GFR/1.73 sq M.predicted among blacks MDRD (S/P/Bld) [Vol rate/Area] 71 ml/min/1.73sqm Invalid Interpretation Code AO Chemistry S Comment on above: Interpretive Data: GFR Population mean for , Non- Americans Ages 20-29 = 116 mL/min/1.73 sq.m. Ages 30-39 = 107 mL/min/1.73 sq.m. Ages 40-49 = 99 mL/min/1.73 sq.m. Ages 50-59 = 93 mL/min/1.73 sq.m. Ages 60-69 = 85 mL/min/1.73 sq.m. Ages 70+ = 75 mL/min/1.73 sq.m. Chronic Kidney Disease: Less than 60 mL/min/1.73 square meters End Stage Renal Disease: Less than 15 mL/min/1.73 square meters GFR/1.73 sq M.predicted among non-blacks MDRD (S/P/Bld) [Vol rate/Area] 58 ml/min/1.73sqm Invalid Interpretation Code AO Chemistry S Comment on above: Interpretive Data: GFR Population mean for , Non- Americans Ages 20-29 = 116 mL/min/1.73 sq.m. Ages 30-39 = 107 mL/min/1.73 sq.m. Ages 40-49 = 99 mL/min/1.73 sq.m. Ages 50-59 = 93 mL/min/1.73 sq.m. Ages 60-69 = 85 mL/min/1.73 sq.m. Ages 70+ = 75 mL/min/1.73 sq.m. Chronic Kidney Disease: Less than 60 mL/min/1.73 square meters End Stage Renal Disease: Less than 15 mL/min/1.73 square meters Globulin 2.6 G/dL Invalid Interpretation Code AO ADM SS Glucose [Mass/Vol] 88 mg/dL Normal 83 - 110 mg/dL AO ADM SS Hematocrit (Bld) [Volume fraction] 40.7 % Normal 37.0 - 47.0 % AO Workflow SS Hemoglobin (Bld) [Mass/Vol] 13.8 G/dL Normal 12.0 - 16.0 G/dL AO Workflow SS Lymphocyte, Absolute 1.6 103/mcL Normal 0.8 - 3 .9 10^3/mcL AO Workflow SS Lymphocytes/100 WBC (Bld) 32.0 % Normal 10.0 - 50.0 % AO Workflow SS MCH (RBC) [Entitic mass] 31.6 pg High 27.0 - 31.2 pg AO Workflow SS MCHC 33.9 G/dL Normal 33.0 - 37.0 G/dL AO Workflow SS MCV (RBC) [Entitic vol] 93.1 fL Normal 80.0 - 94.0 fL AO Workflow SS Monocyte, Absolute 0.5 103/mcL Normal 0.2 - 1.0 10^3/mcL AO Workflow SS Monocytes/100 WBC (Bld) 10.3 % Normal 1.7 - 13.0 % AO Workflow SS Neutrophil, Absolute 2.7 103/mcL Low 2.9 - 6 .2 10^3/mcL AO Workflow SS Neutrophils/100 WBC (Bld) 54.5 % Normal 37.0 - 80.0 % AO Workflow SS Platelet mean volume (Bld) [Entitic vol] 9.7 fL Normal 7.4 - 10.4 fL AO Workflow SS Platelets (Bld) [#/Vol] 146 103/mcL Normal 130 - 400 10^3/mcL AO Workflow SS Potassium [Moles/Vol] 3.4 mmol/L Low 3.5 - 5.1 mmol/L AO ADM SS Protein [Mass/Vol] 6.1 G/dL Low 6.4 - 8.2 G/dL AO ADM SS RBC (Bld) [#/Vol] 4.38 106/mcL Normal 4.20 - 5.4 0 10^6/mcL AO Workflow SS Sodium [Moles/Vol] 146 mmol/L High 136 - 145 mmol/L AO ADM SS TSH Qn 2.54 m[IU]/L Normal 0.36 - 3.74 mcIU/mL AO ADM SS Urea nitrogen [Mass/Vol] 21 mg/dL High 7 - 18 mg/dL AO ADM SS Urea nitrogen/Creatinine [Mass ratio] 23 ratio Normal 7 - 27 ratio AO ADM SS WBC (Bld) [#/Vol] 4.9 103/mcL Normal 4.6 - 10.8 10^3/mcL AO Workflow SS LABORATORYOrdered By: Anita Carter on 10-20-2023 Cholesterol [Mass/Vol] 162 mg/dL Normal 0 - 200 mg/dL AO ADM SS Comment on above: Interpretive Data: C holesterol Reference Interval: Less than 200 Desirable 200-239 Borderline high risk 240 and above High risk Cholesterol in HDL [Mass/Vol] 54 mg/dL Normal 40 - 60 mg/dL AO ADM SS Cholesterol in LDL [Mass/Vol] 96 mg/dL Normal 0 - 130 mg/dL AO ADM SS Triglyceride [Mass/Vol] 60 mg/dL Normal 0 - 150 mg/dL AO ADM SS Comment on above: Interpretive Data: T riglyceride Reference Interval: Less than 150 Normal 150-199 Borderline high risk 200-499 High risk 500 or higher Very high risk LIPIDon 10-20-2023 Cholesterol [Mass/Vol] 162 mg/dL Normal 0-200 [facility] ([place]) Comment on above: Result Comment: Chol esterol Reference Interval: Less than 200 Desirable 200-239 Borderline high risk 240 and above High risk Performed By: #### F T4, ANEU, CBC, GFR, TSH, CMP, ADIFF, LIPID, FT3 #### [address] [address] Cholesterol in HDL [Mass/Vol] 54 mg/dL Normal 40-60 [facility]) Comment on above: Performed By: #### F T4, ANEU, CBC, GFR, TSH, CMP, ADIFF, LIPID, FT3 #### [address] [address] Cholesterol in LDL [Mass/Vol] 96 mg/dL Normal 0-130 [facility] ([place]) Comment on above: Performed By: #### F T4, ANEU, CBC, GFR, TSH, CMP, ADIFF, LIPID, FT3 #### [address] [address] Triglyceride [Mass/Vol] 60 mg/dL Normal 0-150 [facility]) Comment on above: Result Comment: Trig lyceride Reference Interval: Less than 150 Normal 150-199 Borderline high risk 200-499 High risk 500 or higher Very high risk Performed By: #### F T4, ANEU, CBC, GFR, TSH, CMP, ADIFF, LIPID, FT3 #### [address] [address] TSHon 10-20-2023 TSH Qn 2.54 m[IU]/L Normal 0.36-3.74 [facility] ([place]) Comment on above: Performed By: #### F T4, ANEU, CBC, GFR, TSH, CMP, ADIFF, LIPID, FT3 #### [address] [address] .Auto Diffon 05-02-2023 Basophil, Absolute 0.0 10 3/mcL Normal 0.0-0.2 [facility]) Comment on above: Performed By: #### F T4, ANEU, CBC, GFR, TSH, CMP, ADIFF, LIPID, FT3 #### [address] [address] Basophils/100 WBC (Bld) 0.3 % Normal 0.0-2.5 [facility] ([place]) Comment on above: Performed By: #### F T4, ANEU, CBC, GFR, TSH, CMP, ADIFF, LIPID, FT3 #### [address] [address] Eosinophil, Absolute 0.2 10 3/mcL Normal 0.0-0.4 [facility] ([place]) Comment on above: Performed By: #### F T4, ANEU, CBC, GFR, TSH, CMP, ADIFF, LIPID, FT3 #### [address] [address] Eosinophils/100 WBC (Bld) 3.2 % Normal 0.0-7.0 [facility] ([place]) Comment on above: Performed By: #### F T4, ANEU, CBC, GFR, TSH, CMP, ADIFF, LIPID, FT3 #### [address] [address] Lymphocyte, Absolute 1.5 10 3/mcL Normal 0.8-3.9 [facility] ([place]) Comment on above: Performed By: #### F T4, ANEU, CBC, GFR, TSH, CMP, ADIFF, LIPID, FT3 #### [address] [address] Lymphocytes/100 WBC (Bld) 29.2 % Normal 10.0-50.0 [facility] ([place]) Comment on above: Performed By: #### F T4, ANEU, CBC, GFR, TSH, CMP, ADIFF, LIPID, FT3 #### [address] [address] Monocyte, Absolute 0.5 10 3/mcL Normal 0.2-1.0 [facility] ([place]) Comment on above: Performed By: #### F T4, ANEU, CBC, GFR, TSH, CMP, ADIFF, LIPID, FT3 #### [address] [address] Monocytes/100 WBC (Bld) 10.6 % Normal 1.7-13.0 [facility] ([place]) Comment on above: Performed By: #### F T4, ANEU, CBC, GFR, TSH, CMP, ADIFF, LIPID, FT3 #### [address] [address] Neutrophils/100 WBC (Bld) 56.7 % Normal 37.0-80.0 [facility] ([place]) Comment on above: Performed By: #### F T4, ANEU, CBC, GFR, TSH, CMP, ADIFF, LIPID, FT3 #### [address] [address] .GFRon 05-02-2023 GFR 76 ml/min/1.73sqm Normal [facility] ([place]) Comment on above: Result Comment: GFR Population mean for , Non- Americans Ages 20-29 = 116 mL/min/1.73 sq.m. Ages 30-39 = 107 mL/min/1.73 sq.m. Ages 40-49 = 99 mL/min/1.73 sq.m. Ages 50-59 = 93 mL/min/1.73 sq.m. Ages 60-69 = 85 mL/min/1.73 sq.m. Ages 70+ = 75 mL/min/1.73 sq.m. Chronic Kidney Disease: Less than 60 mL/min/1.73 square meters End Stage Renal Disease: Less than 15 mL/min/1.73 square meters Performed By: #### F T4, ANEU, CBC, GFR, TSH, CMP, ADIFF, LIPID, FT3 #### [address] [address] GFR Non- 63 ml/min/1.73sqm Normal [facility] ([place]) Comment on above: Result Comment: GFR Population mean for , Non- Americans Ages 20-29 = 116 mL/min/1.73 sq.m. Ages 30-39 = 107 mL/min/1.73 sq.m. Ages 40-49 = 99 mL/min/1.73 sq.m. Ages 50-59 = 93 mL/min/1.73 sq.m. Ages 60-69 = 85 mL/min/1.73 sq.m. Ages 70+ = 75 mL/min/1.73 sq.m. Chronic Kidney Disease: Less than 60 mL/min/1.73 square meters End Stage Renal Disease: Less than 15 mL/min/1.73 square meters Performed By: #### F T4, ANEU, CBC, GFR, TSH, CMP, ADIFF, LIPID, FT3 #### [address] [address] .NEUABSon 05-02-2023 Neutrophil, Absolute 2.8 10 3/mcL Low 2.9-6.2 [facility] ([place]) Comment on above: Performed By: #### F T4, ANEU, CBC, GFR, TSH, CMP, ADIFF, LIPID, FT3 #### [place] [address] CBCon 05-02-2023 Erythrocyte distribution width (RBC) [Ratio] 13.2 % Normal 11.5-14.5 [facility] ([place]) Comment on above: Performed By: #### A DIFF, GFR, CBC, TSH, CMP, ANEU #### [place] [address] Hematocrit (Bld) [Volume fraction] 42.0 % Normal 37.0-47.0 [facility] ([place]) Comment on above: Performed By: #### A DIFF, GFR, CBC, TSH, CMP, ANEU #### [address] [address] Hgb 14.3 G/dL Normal 12.0-16.0 [facility] ([place]) Comment on above: Performed By: #### A DIFF, GFR, CBC, TSH, CMP, ANEU #### [address] [address] MCH (RBC) [Entitic mass] 31.3 pg High 27.0-31.2 [facility] ([place]) Comment on above: Performed By: #### A DIFF, GFR, CBC, TSH, CMP, ANEU #### [address] [address] MCHC 34.1 G/dL Normal 33.0-37.0 [facility] ([place]) Comment on above: Performed By: #### A DIFF, GFR, CBC, TSH, CMP, ANEU #### [address] [address] MCV (RBC) [Entitic vol] 92.0 fL Normal 80.0-94.0 [facility] ([place]) Comment on above: Performed By: #### A DIFF, GFR, CBC, TSH, CMP, ANEU #### [address] [address] Platelet 152 10 3/mcL Normal 130-400 [facility] ([place]) Comment on above: Performed By: #### A DIFF, GFR, CBC, TSH, CMP, ANEU #### [address] [address] Platelet mean volume (Bld) [Entitic vol] 9.7 fL Normal 7.4-10.4 [facility] ([place]) Comment on above: Performed By: #### A DIFF, GFR, CBC, TSH, CMP, ANEU #### [address] [address] RBC 4.56 10 6/mcL Normal 4.20-5.40 [facility] ([place]) Comment on above: Performed By: #### A DIFF, GFR, CBC, TSH, CMP, ANEU #### [address] [address] WBC 5.0 10 3/mcL Normal 4.6-10.8 [facility] ([place]) Comment on above: Performed By: #### A DIFF, GFR, CBC, TSH, CMP, ANEU #### [address] [address] CMPon 05-02-2023 Albumin Level 3.9 G/dL Normal 3.4-4.8 [facility] ([place] Comment on above: Performed By: #### F T4, ANEU, CBC, GFR, TSH, CMP, ADIFF, LIPID, FT3 #### [address] [address] Albumin/Globulin [Mass ratio] 1.3 {ratio} Normal 1.1-2.5 [facility] ([place]) Comment on above: Performed By: #### F T4, ANEU, CBC, GFR, TSH, CMP, ADIFF, LIPID, FT3 #### [address] [address] ALP [Catalytic activity/Vol] 127 U/L Normal 40-135 [facility] ([place]) Comment on above: Performed By: #### F T4, ANEU, CBC, GFR, TSH, CMP, ADIFF, LIPID, FT3 #### [address] [address] ALT [Catalytic activity/Vol] 28 U/L Normal 14-59 [facility]) Comment on above: Performed By: #### F T4, ANEU, CBC, GFR, TSH, CMP, ADIFF, LIPID, FT3 #### [address] [address] AST [Catalytic activity/Vol] 24 U/L Normal 10-40 [facility]) Comment on above: Performed By: #### F T4, ANEU, CBC, GFR, TSH, CMP, ADIFF, LIPID, FT3 #### [address] [address] Bili Total 0.5 mg/dL Normal 0.2-1.0 [facility] ([place]) Comment on above: Result Comment: Use of this assay is not recommended for patients undergoing treatment with eltrombopag due to the potential for falsely elevated results. Performed By: #### F T4, ANEU, CBC, GFR, TSH, CMP, ADIFF, LIPID, [id number] #### [address] [address] BUN/Creatinine Ratio 28 ratio High 7-27 [facility] ([place]) Comment on above: Performed By: #### F T4, ANEU, CBC, GFR, TSH, CMP, ADIFF, LIPID, FT3 #### [address] [address] Calcium [Mass/Vol] 9.1 mg/dL Normal 8.4-10.2 [facility] ([place]) Comment on above: Performed By: #### F T4, ANEU, CBC, GFR, TSH, CMP, ADIFF, LIPID, FT3 #### [address] [address] Chloride [Moles/Vol] 107 mmol/L Normal 98-107 [facility] ([place]) Comment on above: Performed By: #### F T4, ANEU, CBC, GFR, TSH, CMP, ADIFF, LIPID, FT3 #### [address] [address] CO2 [Moles/Vol] 30 mmol/L Normal 23-31 [facility] ([place]) Comment on above: Performed By: #### F T4, ANEU, CBC, GFR, TSH, CMP, ADIFF, LIPID, FT3 #### [address] [address] Creatinine [Mass/Vol] 0.87 mg/dL Normal 0.55-1.02 [facility] ([place]) Comment on above: Performed By: #### F T4, ANEU, CBC, GFR, TSH, CMP, ADIFF, LIPID, FT3 #### [address] [address] Electrolyte Balance 12.0 mEq/L Normal 4.0-15.0 [facility] ([place]) Comment on above: Performed By: #### F T4, ANEU, CBC, GFR, TSH, CMP, ADIFF, LIPID, FT3 #### [address] [address] Globulin 3.0 G/dL Normal [facility] ([place]) Comment on above: Performed By: #### F T4, ANEU, CBC, GFR, TSH, CMP, ADIFF, LIPID, FT3 #### [address] [address] Glucose [Mass/Vol] 95 mg/dL Normal 83-110 [facility] ([place]) Comment on above: Performed By: #### F T4, ANEU, CBC, GFR, TSH, CMP, ADIFF, LIPID, FT3 #### [address] [address] Potassium [Moles/Vol] 4.1 mmol/L Normal 3.5-5.1 [facility] ([place]) Comment on above: Performed By: #### F T4, ANEU, CBC, GFR, TSH, CMP, ADIFF, LIPID, FT3 #### [id number] [place], [place] [address] Sodium [Moles/Vol] 149 mmol/L High 136-145 [facility] ([place]) Comment on above: Performed By: #### F T4, ANEU, CBC, GFR, TSH, CMP, ADIFF, LIPID, FT3 #### [id number] [place], [place] [address] Total Protein 6.9 G/dL Normal 6.4-8.2 [facility] ([place]) Comment on above: Performed By: #### F T4, ANEU, CBC, GFR, TSH, CMP, ADIFF, LIPID, FT3 #### [id number] [place], [place] [address] Urea nitrogen [Mass/Vol] 24 mg/dL High 7-18 [facility] ([place]) Comment on above: Performed By: #### F T4, ANEU, CBC, GFR, TSH, CMP, ADIFF, LIPID, FT3 #### [id number] [place], [place] [address] LABORATORYOrdered By: SYSTEM SYSTEM on 05-02-2023 Albumin BCP dye [Mass/Vol] 3.9 G/dL Normal 3.4 - 4.8 G/dL AO ADM SS Albumin/Globulin [Mass ratio] 1.3 {ratio} Normal 1.1 - 2.5 ratio AO ADM SS ALP [Catalytic activity/Vol] 127 U/L Normal 40 - 135 U/L AO ADM SS ALT With P-5'-P [Catalytic activity/Vol] 28 U/L Normal 14 - 59 U/L AO ADM SS AST With P-5'-P [Catalytic activity/Vol] 24 U/L Normal 10 - 40 U/L AO ADM SS Basophil, Absolute 0.0 103/mcL Normal 0.0 - 0.2 10^3/mcL AO Workflow SS Basophils/100 WBC (Bld) 0.3 % Normal 0.0 - 2.5 % AO Workflow SS Bilirubin [Mass/Vol] 0.5 mg/dL Normal 0.2 - 1 .0 mg/dL AO ADM SS Comment on above: Interpretive Data: U se of this assay is not recommended for patients undergoing treatment with eltrombopag due to the potential for falsely elevated results. Calcium [Mass/Vol] 9.1 mg/dL Normal 8.4 - 10. 2 mg/dL AO ADM SS Chloride [Moles/Vol] 107 mmol/L Normal 98 - 10 7 mmol/L AO ADM SS CO2 [Moles/Vol] 30 mmol/L Normal 23 - 31 mmol/L AO ADM SS Creatinine [Mass/Vol] 0.87 mg/dL Normal 0.55 - 1.02 mg/dL AO ADM SS Electrolyte Balance 12.0 mEq/L Normal 4.0 - 15 .0 mEq/L AO ADM SS Eosinophil, Absolute 0.2 103/mcL Normal 0.0 - 0 .4 10^3/mcL AO Workflow SS Eosinophils/100 WBC (Bld) 3.2 % Normal 0.0 - 7.0 % AO Workflow SS Erythrocyte distribution width (RBC) [Ratio] 13.2 % Normal 11.5 - 14.5 % AO Workflow SS GFR/1.73 sq M.predicted among blacks MDRD (S/P/Bld) [Vol rate/Area] 76 ml/min/1.73sqm Invalid Interpretation Code AO Chemistry S Comment on above: Interpretive Data: GFR Population mean for , Non- Americans Ages 20-29 = 116 mL/min/1.73 sq.m. Ages 30-39 = 107 mL/min/1.73 sq.m. Ages 40-49 = 99 mL/min/1.73 sq.m. Ages 50-59 = 93 mL/min/1.73 sq.m. Ages 60-69 = 85 mL/min/1.73 sq.m. Ages 70+ = 75 mL/min/1.73 sq.m. Chronic Kidney Disease: Less than 60 mL/min/1.73 square meters End Stage Renal Disease: Less than 15 mL/min/1.73 square meters GFR/1.73 sq M.predicted among non-blacks MDRD (S/P/Bld) [Vol rate/Area] 63 ml/min/1.73sqm Invalid Interpretation Code AO Chemistry S Comment on above: Interpretive Data: GFR Population mean for , Non- Americans Ages 20-29 = 116 mL/min/1.73 sq.m. Ages 30-39 = 107 mL/min/1.73 sq.m. Ages 40-49 = 99 mL/min/1.73 sq.m. Ages 50-59 = 93 mL/min/1.73 sq.m. Ages 60-69 = 85 mL/min/1.73 sq.m. Ages 70+ = 75 mL/min/1.73 sq.m. Chronic Kidney Disease: Less than 60 mL/min/1.73 square meters End Stage Renal Disease: Less than 15 mL/min/1.73 square meters Globulin 3.0 G/dL Invalid Interpretation Code AO ADM SS Glucose [Mass/Vol] 95 mg/dL Normal 83 - 110 mg/dL AO ADM SS Hematocrit (Bld) [Volume fraction] 42.0 % Normal 37.0 - 47.0 % AO Workflow SS Hemoglobin (Bld) [Mass/Vol] 14.3 G/dL Normal 12.0 - 16.0 G/dL AO Workflow SS Lymphocyte, Absolute 1.5 103/mcL Normal 0.8 - 3 .9 10^3/mcL AO Workflow SS Lymphocytes/100 WBC (Bld) 29.2 % Normal 10.0 - 50.0 % AO Workflow SS MCH (RBC) [Entitic mass] 31.3 pg High 27.0 - 31.2 pg AO Workflow SS MCHC 34.1 G/dL Normal 33.0 - 37.0 G/dL AO Workflow SS MCV (RBC) [Entitic vol] 92.0 fL Normal 80.0 - 94.0 fL AO Workflow SS Monocyte, Absolute 0.5 103/mcL Normal 0.2 - 1.0 10^3/mcL AO Workflow SS Monocytes/100 WBC (Bld) 10.6 % Normal 1.7 - 13.0 % AO Workflow SS Neutrophil, Absolute 2.8 103/mcL Low 2.9 - 6 .2 10^3/mcL AO Workflow SS Neutrophils/100 WBC (Bld) 56.7 % Normal 37.0 - 80.0 % AO Workflow SS Platelet mean volume (Bld) [Entitic vol] 9.7 fL Normal 7.4 - 10.4 fL AO Workflow SS Platelets (Bld) [#/Vol] 152 103/mcL Normal 130 - 400 10^3/mcL AO Workflow SS Potassium [Moles/Vol] 4.1 mmol/L Normal 3.5 - 5.1 mmol/L AO ADM SS Protein [Mass/Vol] 6.9 G/dL Normal 6.4 - 8.2 G/dL AO ADM SS RBC (Bld) [#/Vol] 4.56 106/mcL Normal 4.20 - 5.4 0 10^6/mcL AO Workflow SS Sodium [Moles/Vol] 149 mmol/L High 136 - 145 mmol/L AO ADM SS TSH Qn 3.32 m[IU]/L Normal 0.36 - 3.74 mcIU/mL AO ADM SS Urea nitrogen [Mass/Vol] 24 mg/dL High 7 - 18 mg/dL AO ADM SS Urea nitrogen/Creatinine [Mass ratio] 28 ratio High 7 - 27 ratio AO ADM SS WBC (Bld) [#/Vol] 5.0 103/mcL Normal 4.6 - 10.8 10^3/mcL AO Workflow SS TSHon 05-02-2023 TSH Qn 3.32 m[IU]/L Normal 0.36-3.74 [facility] ([place]) Comment on above: Performed By: #### F T4, ANEU, CBC, GFR, TSH, CMP, ADIFF, LIPID, FT3 #### [address] [id number] LABORATORYOrdered By: SYSTEM SYSTEM on 10-27-2022 Albumin BCP dye [Mass/Vol] 3.8 G/dL Invalid Interpretation Code 3.4 - 4.8 G/dL AO ADM SS Albumin/Globulin [Mass ratio] 1.4 {ratio} Invalid Interpretation Code 1.1 - 2.5 ratio AO ADM SS ALP [Catalytic activity/Vol] 139 U/L Invalid Interpretation Code 40 - 135 U/L AO ADM SS ALT With P-5'-P [Catalytic activity/Vol] 31 U/L Invalid Interpretation Code 14 - 59 U/L AO ADM SS AST With P-5'-P [Catalytic activity/Vol] 26 U/L Invalid Interpretation Code 10 - 40 U/L AO ADM SS Basophil, Absolute 0.0 103/mcL Invalid Interpretation Code 0.0 - 0.2 10^3/mcL AO Workflow SS Basophils/100 WBC (Bld) 0.4 % Invalid Interpretation Code 0.0 - 2.5 % AO Workflow SS Bilirubin [Mass/Vol] 0.6 mg/dL Invalid Interpretation Code 0.2 - 1.0 mg/dL AO ADM SS Calcium [Mass/Vol] 8.9 mg/dL Invalid Interpretation Code 8.4 - 10.2 mg/dL AO ADM SS Chloride [Moles/Vol] 104 mmol/L Invalid Interpretation Code 98 - 107 mmol/L AO ADM SS CO2 [Moles/Vol] 33 mmol/L Invalid Interpretation Code 23 - 31 mmol/L AO ADM SS Creatinine [Mass/Vol] 0.85 mg/dL Invalid Interpretation Code 0.55 - 1.02 mg/dL AO ADM SS Electrolyte Balance 6.0 mEq/L Invalid Interpretation Code 4.0 - 15.0 mEq/L AO ADM SS Eosinophil, Absolute 0.2 103/mcL Invalid Interpretation Code 0.0 - 0.4 10^3/mcL AO Workflow SS Eosinophils/100 WBC (Bld) 2.3 % Invalid Interpretation Code 0.0 - 7.0 % AO Workflow SS Erythrocyte distribution width (RBC) [Ratio] 13.6 % Invalid Interpretation Code 11.5 - 14.5 % AO Workflow SS GFR/1.73 sq M.predicted among blacks MDRD (S/P/Bld) [Vol rate/Area] 79 ml/min/1.73sqm Invalid Interpretation Code AO Chemistry S GFR/1.73 sq M.predicted among non-blacks MDRD (S/P/Bld) [Vol rate/Area] 65 ml/min/1.73sqm Invalid Interpretation Code AO Chemistry S Globulin 2.7 G/dL Invalid Interpretation Code AO ADM SS Glucose [Mass/Vol] 93 mg/dL Invalid Interpretation Code 83 - 110 mg/dL AO ADM SS Hematocrit (Bld) [Volume fraction] 40.3 % Invalid Interpretation Code 37.0 - 47.0 % AO Workflow SS Hemoglobin (Bld) [Mass/Vol] 13.7 G/dL Invalid Interpretation Code 12.0 - 16.0 G/dL AO Workflow SS Lymphocyte, Absolute 2.2 103/mcL Invalid Interpretation Code 0.8 - 3.9 10^3/mcL AO Workflow SS Lymphocytes/100 WBC (Bld) 31.1 % Invalid Interpretation Code 10.0 - 50.0 % AO Workflow SS MCH (RBC) [Entitic mass] 31.2 pg Invalid Interpretation Code 27.0 - 31.2 pg AO Workflow SS MCHC 34.0 G/dL Invalid Interpretation Code 33.0 - 37.0 G/dL AO Workflow SS MCV (RBC) [Entitic vol] 91.9 fL Invalid Interpretation Code 80.0 - 94.0 fL AO Workflow SS Monocyte, Absolute 0.7 103/mcL Invalid Interpretation Code 0.2 - 1.0 10^3/mcL AO Workflow SS Monocytes/100 WBC (Bld) 10.0 % Invalid Interpretation Code 1.7 - 13.0 % AO Workflow SS Neutrophil, Absolute 4.0 103/mcL Invalid Interpretation Code 2.9 - 6.2 10^3/mcL AO Workflow SS Neutrophils/100 WBC (Bld) 56.2 % Invalid Interpretation Code 37.0 - 80.0 % AO Workflow SS Platelet mean volume (Bld) [Entitic vol] 9.4 fL Invalid Interpretation Code 7.4 - 10.4 fL AO Workflow SS Platelets (Bld) [#/Vol] 149 103/mcL Invalid Interpretation Code 130 - 400 10^3/mcL AO Workflow SS Potassium [Moles/Vol] 4.2 mmol/L Invalid Interpretation Code 3.5 - 5.1 mmol/L AO ADM SS Protein [Mass/Vol] 6.5 G/dL Invalid Interpretation Code 6.4 - 8.2 G/dL AO ADM SS RBC (Bld) [#/Vol] 4.38 106/mcL Invalid Interpretation Code 4.20 - 5.40 10^6/mcL AO Workflow SS Sodium [Moles/Vol] 143 mmol/L Invalid Interpretation Code 136 - 145 mmol/L AO ADM SS TSH Qn 3.39 m[IU]/L Invalid Interpretation Code 0.36 - 3.74 mcIU/mL AO ADM SS Urea nitrogen [Mass/Vol] 18 mg/dL Invalid Interpretation Code 7 - 18 mg/dL AO ADM SS Urea nitrogen/Creatinine [Mass ratio] 21 ratio Invalid Interpretation Code 7 - 27 ratio AO ADM SS WBC (Bld) [#/Vol] 7.1 103/mcL Invalid Interpretation Code 4.6 - 10.8 10^3/mcL AO Workflow SS LABORATORYOrdered By: Sade Singh on 10-27-2022 Cholesterol [Mass/Vol] 166 mg/dL Invalid Interpretation Code 0 - 200 mg/dL AO ADM SS Cholesterol in HDL [Mass/Vol] 58 mg/dL Invalid Interpretation Code 40 - 60 mg/dL AO ADM SS Cholesterol in LDL [Mass/Vol] 96 mg/dL Invalid Interpretation Code 0 - 130 mg/dL AO ADM SS Triglyceride [Mass/Vol] 62 mg/dL Invalid Interpretation Code 0 - 150 mg/dL AO ADM SS LABORATORYOrdered By: SYSTEM SYSTEM on 07-26-2022 TSH Qn 3.63 m[IU]/L Invalid Interpretation Code 0.36 - 3.74 mcIU/mL AO ADM SS LABORATORYOrdered By: SYSTEM SYSTEM on 06-07-2022 TSH Qn 5.28 m[IU]/L Invalid Interpretation Code 0.36 - 3.74 mcIU/mL AO ADM SS LABORATORYOrdered By: SYSTEM SYSTEM on 05-02-2022 TSH Qn 4.59 m[IU]/L Invalid Interpretation Code 0.36 - 3.74 mcIU/mL AO ADM SS Laboratory - Chemistry and C hemistry - challengeOrdered By: Rose Jacobo on 03-29-2022 Natriuretic peptide B (Bld) [Mass/Vol] 67.2 pg/mL 0-100 [facility] LABORATORYOrdered By: Wilma Chester on 03-24-2022 TSH Qn 2.51 m[IU]/L Invalid Interpretation Code 0.36 - 3.74 mcIU/mL AO ADM SS LABORATORYOrdered By: Wilma Chester on 02-17-2022 TSH Qn 4.28 m[IU]/L Invalid Interpretation Code 0.36 - 3.74 mcIU/mL AO ADM SS LABORATORYOrdered By: Antoinette Alaniz on 11-24-2021 Albumin BCP dye [Mass/Vol] 3.9 G/dL Invalid Interpretation Code 3.4 - 4.8 G/dL AO ADM SS Albumin/Globulin [Mass ratio] 1.4 {ratio} Invalid Interpretation Code 1.1 - 2.5 ratio AO ADM SS ALP [Catalytic activity/Vol] 113 U/L Invalid Interpretation Code 40 - 135 U/L AO ADM SS ALT With P-5'-P [Catalytic activity/Vol] 28 U/L Invalid Interpretation Code 14 - 59 U/L AO ADM SS AST With P-5'-P [Catalytic activity/Vol] 27 U/L Invalid Interpretation Code 10 - 40 U/L AO ADM SS Bilirubin [Mass/Vol] 0.6 mg/dL Invalid Interpretation Code 0.2 - 1.0 mg/dL AO ADM SS Chloride [Moles/Vol] 104 mmol/L Invalid Interpretation Code 98 - 107 mmol/L AO ADM SS CO2 [Moles/Vol] 32 mmol/L Invalid Interpretation Code 23 - 31 mmol/L AO ADM SS Creatinine [Mass/Vol] 0.89 mg/dL Invalid Interpretation Code 0.55 - 1.02 mg/dL AO ADM SS Electrolyte Balance 6.0 mEq/L Invalid Interpretation Code 4.0 - 15.0 mEq/L AO ADM SS Globulin 2.7 G/dL Invalid Interpretation Code AO ADM SS Glucose [Mass/Vol] 91 mg/dL Invalid Interpretation Code 83 - 110 mg/dL AO ADM SS Potassium [Moles/Vol] 4.5 mmol/L Invalid Interpretation Code 3.5 - 5.1 mmol/L AO ADM SS Protein [Mass/Vol] 6.6 G/dL Invalid Interpretation Code 6.4 - 8.2 G/dL AO ADM SS Sodium [Moles/Vol] 142 mmol/L Invalid Interpretation Code 136 - 145 mmol/L AO ADM SS TSH Qn 6.62 m[IU]/L Invalid Interpretation Code 0.36 - 3.74 mcIU/mL AO ADM SS Urea nitrogen [Mass/Vol] 27 mg/dL Invalid Interpretation Code 7 - 18 mg/dL AO ADM SS Urea nitrogen/Creatinine [Mass ratio] 30 ratio Invalid Interpretation Code 7 - 27 ratio AO ADM SS LABORATORYOrdered By: Ela Cote on 11-24-2021 Basophil, Absolute 0.0 103/mcL Invalid Interpretation Code 0.0 - 0.2 10^3/mcL AO Workflow SS Basophils/100 WBC (Bld) 0.5 % Invalid Interpretation Code 0.0 - 2.5 % AO Workflow SS Eosinophil, Absolute 0.3 103/mcL Invalid Interpretation Code 0.0 - 0.4 10^3/mcL AO Workflow SS Eosinophils/100 WBC (Bld) 4.8 % Invalid Interpretation Code 0.0 - 7.0 % AO Workflow SS Erythrocyte distribution width (RBC) [Ratio] 13.4 % Invalid Interpretation Code 11.5 - 14.5 % AO Workflow SS Hematocrit (Bld) [Volume fraction] 41.2 % Invalid Interpretation Code 37.0 - 47.0 % AO Workflow SS Hemoglobin (Bld) [Mass/Vol] 14.1 G/dL Invalid Interpretation Code 12.0 - 16.0 G/dL AO Workflow SS Lymphocyte, Absolute 1.6 103/mcL Invalid Interpretation Code 0.8 - 3.9 10^3/mcL AO Workflow SS Lymphocytes/100 WBC (Bld) 30.9 % Invalid Interpretation Code 10.0 - 50.0 % AO Workflow SS MCH (RBC) [Entitic mass] 31.8 pg Invalid Interpretation Code 27.0 - 31.2 pg AO Workflow SS MCHC 34.3 G/dL Invalid Interpretation Code 33.0 - 37.0 G/dL AO Workflow SS MCV (RBC) [Entitic vol] 92.8 fL Invalid Interpretation Code 80.0 - 94.0 fL AO Workflow SS Monocyte, Absolute 0.6 103/mcL Invalid Interpretation Code 0.2 - 1.0 10^3/mcL AO Workflow SS Monocytes/100 WBC (Bld) 11.2 % Invalid Interpretation Code 1.7 - 13.0 % AO Workflow SS Neutrophil, Absolute 2.8 103/mcL Invalid Interpretation Code 2.9 - 6.2 10^3/mcL AO Workflow SS Neutrophils/100 WBC (Bld) 52.6 % Invalid Interpretation Code 37.0 - 80.0 % AO Workflow SS Platelet mean volume (Bld) [Entitic vol] 9.2 fL Invalid Interpretation Code 7.4 - 10.4 fL AO Workflow SS Platelets (Bld) [#/Vol] 147 103/mcL Invalid Interpretation Code 130 - 400 10^3/mcL AO Workflow SS RBC (Bld) [#/Vol] 4.44 106/mcL Invalid Interpretation Code 4.20 - 5.40 10^6/mcL AO Workflow SS WBC 5.3 103/mcL Invalid Interpretation Code 4.6 - 10.8 10^3/mcL AO Workflow SS LABORATORYOrdered By: SYSTEM SYSTEM on 11-24-2021 GFR 75 ml/min/1.73sqm Invalid Interpretation Code AO Chemistry S GFR Non- 62 ml/min/1.73sqm Invalid Interpretation Code AO Chemistry S Monocyte distribution width Auto (Bld) [Entitic vol] Not Performed 1 *NA* (11/24/21 11:32 AM) Invalid Interpretation Code 0.00 - 20.00 AO Hematology S Comment on above: Result Comment: MDW testing performed only on adult ER patients between the ages of 18-89 years. LABORATORYOrdered By: Wagner Fuller on 06-10-2021 TSH Qn 3.36 m[IU]/L Invalid Interpretation Code 0.36 - 3.74 mcIU/mL AO ADM SS LABORATORYOrdered By: Christie Jaramillo on 05-07-2021 Albumin BCP dye [Mass/Vol] 3.7 G/dL Invalid Interpretation Code 3.4 - 4.8 G/dL AO ADM SS Albumin/Globulin [Mass ratio] 1.4 {ratio} Invalid Interpretation Code 1.1 - 2.5 ratio AO ADM SS ALP [Catalytic activity/Vol] 100 U/L Invalid Interpretation Code 40 - 135 U/L AO ADM SS ALT With P-5'-P [Catalytic activity/Vol] 43 U/L Invalid Interpretation Code 14 - 59 U/L AO ADM SS AST With P-5'-P [Catalytic activity/Vol] 29 U/L Invalid Interpretation Code 10 - 40 U/L AO ADM SS Bilirubin [Mass/Vol] 0.5 mg/dL Invalid Interpretation Code 0.2 - 1.0 mg/dL AO ADM SS Calcium [Mass/Vol] 8.6 mg/dL Invalid Interpretation Code 8.4 - 10.2 mg/dL AO ADM SS Chloride [Moles/Vol] 105 mmol/L Invalid Interpretation Code 98 - 107 mmol/L AO ADM SS Cholesterol [Mass/Vol] 186 mg/dL Invalid Interpretation Code 0 - 200 mg/dL AO ADM SS Cholesterol in HDL [Mass/Vol] 61 mg/dL Invalid Interpretation Code 40 - 60 mg/dL AO ADM SS Cholesterol in LDL [Mass/Vol] 108 mg/dL Invalid Interpretation Code 0 - 130 mg/dL AO ADM SS CO2 [Moles/Vol] 31 mmol/L Invalid Interpretation Code 23 - 31 mmol/L AO ADM SS Creatinine [Mass/Vol] 0.77 mg/dL Invalid Interpretation Code 0.55 - 1.02 mg/dL AO ADM SS Electrolyte Balance 7.0 mEq/L Invalid Interpretation Code 4.0 - 15.0 mEq/L AO ADM SS Globulin 2.6 G/dL Invalid Interpretation Code AO ADM SS Glucose [Mass/Vol] 87 mg/dL Invalid Interpretation Code 83 - 110 mg/dL AO ADM SS Potassium [Moles/Vol] 4.1 mmol/L Invalid Interpretation Code 3.5 - 5.1 mmol/L AO ADM SS Protein [Mass/Vol] 6.3 G/dL Invalid Interpretation Code 6.4 - 8.2 G/dL AO ADM SS Sodium [Moles/Vol] 143 mmol/L Invalid Interpretation Code 136 - 145 mmol/L AO ADM SS Triglyceride [Mass/Vol] 86 mg/dL Invalid Interpretation Code 0 - 150 mg/dL AO ADM SS TSH Qn 6.82 m[IU]/L Invalid Interpretation Code 0.36 - 3.74 mcIU/mL AO ADM SS Urea nitrogen [Mass/Vol] 17 mg/dL Invalid Interpretation Code 7 - 18 mg/dL AO ADM SS Urea nitrogen/Creatinine [Mass ratio] 22 ratio Invalid Interpretation Code 7 - 27 ratio AO ADM SS LABORATORYOrdered By: Traci Pratt on 05-07-2021 Basophil, Absolute 0.00 103/mcL Invalid Interpretation Code 0.00 - 0.19 10^3/mcL AO Auto Heme SS Basophils/100 WBC (Bld) 0.6 % Invalid Interpretation Code 0.0 - 2.5 % AO Auto Heme SS Eosinophil, Absolute 0.20 103/mcL Invalid Interpretation Code 0.00 - 0.40 10^3/mcL AO Auto Heme SS Eosinophils/100 WBC (Bld) 3.8 % Invalid Interpretation Code 0.0 - 7.0 % AO Auto Heme SS Erythrocyte distribution width (RBC) [Ratio] 13.7 % Invalid Interpretation Code 11.5 - 14.5 % AO Auto Heme SS Hematocrit (Bld) [Volume fraction] 40.1 % Invalid Interpretation Code 37.0 - 47.0 % AO Auto Heme SS Hemoglobin (Bld) [Mass/Vol] 13.9 G/dL Invalid Interpretation Code 12.0 - 16.0 G/dL AO Auto Heme SS Lymphocyte, Absolute 1.50 103/mcL Invalid Interpretation Code 0.77 - 3.85 10^3/mcL AO Auto Heme SS Lymphocytes/100 WBC (Bld) 30.9 % Invalid Interpretation Code 10.0 - 50.0 % AO Auto Heme SS MCH (RBC) [Entitic mass] 31.8 pg Invalid Interpretation Code 27.0 - 31.2 pg AO Auto Heme SS MCHC (RBC) [Mass/Vol] 34.8 G/dL Invalid Interpretation Code 33.0 - 37.0 G/dL AO Auto Heme SS MCV (RBC) [Entitic vol] 91.5 fL Invalid Interpretation Code 80.0 - 94.0 fL AO Auto Heme SS Monocyte, Absolute 0.60 103/mcL Invalid Interpretation Code 0.15 - 1.00 10^3/mcL AO Auto Heme SS Monocytes/100 WBC (Bld) 11.1 % Invalid Interpretation Code 1.7 - 13.0 % AO Auto Heme SS Neutrophil, Absolute 2.70 103/mcL Invalid Interpretation Code 2.85 - 6.16 10^3/mcL AO Auto Heme SS Neutrophils/100 WBC (Bld) 53.6 % Invalid Interpretation Code 37.0 - 80.0 % AO Auto Heme SS Platelet mean volume (Bld) [Entitic vol] 9.2 fL Invalid Interpretation Code 7.4 - 10.4 fL AO Auto Heme SS Platelets (Bld) [#/Vol] 148 103/mcL Invalid Interpretation Code 130 - 400 10^3/mcL AO Auto Heme SS RBC (Bld) [#/Vol] 4.38 106/mcL Invalid Interpretation Code 4.20 - 5.40 10^6/mcL AO Auto Heme SS WBC (Bld) [#/Vol] 5.00 103/mcL Invalid Interpretation Code 4.60 - 10.80 10^3/mcL AO Auto Heme SS LABORATORYOrdered By: SYSTEM SYSTEM on 05-07-2021 GFR 88 ml/min/1.73sqm Invalid Interpretation Code AO Chemistry S GFR Non- 73 ml/min/1.73sqm Invalid Interpretation Code AO Chemistry S EMERGENCY REPORTon 0 EMERGENCY REPORT [facility] EMERGENCY ROOM REPORT NAME ACCOUNT SEX AGE ADMIT DISCHARGE PT MED. RECORD# NUMBER DATE DATE TYPE LETICIA CARRILLO [id number] F 74 07/24/19 07/24/19 3 L [id number] ROOM: ER DATE OF : 1945 DICTATING PHYSICIAN: Dawson Herrmann ADDENDUM: As an update, this patient's second troponin came back at 2000 hours at 1.39, so it was higher than the first. The patient has remained symptom free. She has no chest pain. No shortness of breath. No palpitations, but I did start her on heparin. I went ahead and got a PT/INR. The PT was 11.6, INR 1.0, PTT 27.4. I started her on a heparin weight-based protocol. I calculated that at 7600 unit bolus, and I calculated the heparin infusion at 1700 units an hour. I did call Dr. Condon back at [facility] and advised her that the patient was on heparin, so she is aware of that. The patient has just left the emergency department here via ambulance, and should be there in about 30 minutes. Dictated By: Dawson Herrmann DO 07/24/19 21:55 JOB #: [id number] Transcribed By: am 07/25/19 16:32 Electronically signed by: E-Sign: Dr. Dawson Herrmann D.O. 07/26/19 07:37 Page 1 of 1 LETICIA CARRILLO Emergency Room Report Normal [facility] EMERGENCY REPORT [facility] EMERGENCY ROOM REPORT NAME ACCOUNT SEX AGE ADMIT DISCHARGE PT MED. RECORD# NUMBER DATE DATE TYPE LETICIA CARRILLO [id number] F 74 07/24/19 07/24/19 3 L [id number] ROOM: ER DATE OF : 1945 DICTATING PHYSICIAN: Dawson Herrmann Date seen is July 24, [address] Ruelas. HISTORY OF PRESENT ILLNESS: This is a 74-year-old female who has been complaining of some fluttering in her chest off and on for the past month. She has had some intermittent chest pressure and some shortness of breath with that at the same time. She states that the fluttering in her chest was "too many together". 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 She got dizzy and nauseated, and she got short of breath, but she denied any diaphoresis. She states that when she got the pressure in her chest with this she felt like she had a lump in her throat as well. All of these symptoms resolved after she sat down and rested, but since she has been having these symptoms off and on for the past month she had been trying to hold off to go the ER because of the coronavirus, and they have been telling everybody not to go to the ER, but she became concerned and she thought she should go to the emergency room today, so she presents here for an evaluation. Her PCP is Jose Meehan in [place]. PAST MEDICAL HISTORY: The patient has a past medical history of hypertension and COPD. She is a past smoker. She quit about 30 years ago. She is not a diabetic. She did have a stress test at [facility] in April of 2018. She has not seen a radiologic technologist in follow up. She just follows up with her family doctor. She does have an appointment with Dr. Jose Meehan, her primary care physician, on August 05. PAST SURGICAL HISTORY: Past surgeries include a left hip replacement in March of 2019. She had a right hip replacement in 2011 and in 2003 she had surgery for a dislocation of her ankle. She has also had gastric bypass surgery in the past. ALLERGIES: She is allergic to 2 mediations, Nalifilin and also Tolectin. SOCIAL HISTORY: She presently is not a smoker. She quit about 30 years ago. She denies any use of alcohol or illicit drugs. She lives alone. REVIEW OF SYSTEMS: The patient does admit to chest pain and shortness of breath, as well as palpitations. Denies any cough, sputum, wheezing, abdominal pain. She did complain of some nausea earlier, but denies any vomiting, diarrhea, constipation, melena, hematochezia, headache, numbness, unsteady gait, but did admit to some Page 1 of 3 LETICIA CARRILLO Emergency Room Report LETICIA CARRILLO : 1945 dizziness. Denies any weakness, neck or back pain, joint pain, skin rash or swelling, hives, hayfever, or swollen glands. I did ask her if any of this chest pressure radiated into her arm or if she had any arm numbness and she denied that as well. Further review of systems is negative. PHYSICAL EXAMINATION: Vital signs: Blood pressure 144/90, pulse 118, respirations 18, temperature 97.3, pulse ox 93%, weight 210 pounds. The patient is alert and oriented x3. She presently appears in no acute distress. She is pleasant and cooperative. She makes eye contact. She speaks in full sentences. She is smiling and talkative. HEENT: Head appears atraumatic. Pupils are equal and reactive to light. Red reflex intact bilaterally. Extraocular muscles are intact. No conjunctival injection. No scleral icterus or lid edema. Nose: Exhibits no rhinorrhea or epistaxis. Mouth: Mucous membranes are moist. No pharyngeal erythema. Uvula is midline and elevates. Neck is supple. Trachea is midline. No JVD or lymphadenopathy. No posterior cervical tenderness. No nuchal rigidity. Lungs: Clear to auscultation in all lung castro. No adventitious sounds are noted. No accessory muscle use noted. CV: Heart rate and rhythm are regular. I presently note no murmur. Abdomen is soft and nontender with normoactive bowel sounds x4 quadrants. No guarding or rigidity. No rebound. No palpable abdominal masses. No hepatosplenomegaly. Back exhibits no midline or paraspinal region tenderness. No increased paraspinal muscle rigidity. Negative Stephen's sign. Extremities: No edema or cyanosis. Peripheral pulses are intact. No motor or sensory deficits are noted. Skin is warm and dry. No diaphoresis or rash. Neurologic examine shows the patient to be alert and oriented x4. No motor or sensory deficits are noted. Normal speech. No conversational dyspnea. DIAGNOSTIC DATA: EKG was done at 1709 hours. It showed a sinus tachycardia at a rate of 110 beats per minute with some nonspecific ST segment type changes, but I see no acute injury pattern. [place] is approximately 60 degrees. Chest x-ray shows no acute infiltrate or failure. Her laboratory work shows a white count of 7.9, hemoglobin 14.7, hematocrit 44.0, and platelet count was 149,000. Sodium 140, potassium 3.3, chloride 102, CO2 24.1, BUN 17, creatinine 0.8, glucose 119. Anion gap was normal at 17. Her troponin was elevated at 0.35. EMERGENCY DEPARTMENT COURSE AND TREATMENT: She is presently symptoms free here. She was given aspirin. She had requested to go to [facility] for admission since we did not feel that she should be discharged. DIAGNOSES: 1. Chest pain. 2. Elevated troponin. PLAN/DISPOSITION: I spoke with Dr. Allie Condon, the Hospitalist, at [facility] Page 2 of 3 LETICIA CARRILLO Emergency Room Report LETICIA CARRILLO : 1945 Hospital and she has accepted the patient for admission. I discussed the transfer with the patient, and she is agreeable. [facility] is going to call us with a bed assignment. Dictated By: Dawson Herrmann DO 07/24/19 20:14 JOB #: [id number] Transcribed By: am 07/25/19 14:50 Electronically signed by: E-Sign: Dr. Dawson Herrmann D.O. 07/26/19 07:31 Page 3 of 3 LETICIA CARRILLO Emergency Room Report Normal [facility] APTTon 07-24-2019 aPTT Coag (Bld) [Time] 27.4 s Normal 25.4 - 38.4 [facility] Comment on above: Performed By: #### 2 42049 #### [facility],[address] [place] [address] 92440 BMP with eGFRon 07-24-2019 Age - Reported 74 years Normal [facility] Comment on above: Performed By: #### 2 41329 #### [facility],[address] [place] [address] 54835 Anion gap [Moles/Vol] 17 mmol/L Normal 10 - 20 [facility] Comment on above: Performed By: #### 2 20930 #### [facility],[address] [place] [address] 88725 Calcium [Mass/Vol] 9.5 mg/dL Normal 8.6 - 10.2 [facility] Comment on above: Performed By: #### 2 23150 #### [facility],[address] [place] [address] 78983 Chloride [Moles/Vol] 102 mmol/L Normal 98 - 107 [facility] Comment on above: Performed By: #### 2 71509 #### [facility],[address] [place] [address] 37516 CO2 [Moles/Vol] 24.1 mmol/L Normal 21.0 - 31.0 [facility] Comment on above: Performed By: #### 2 05683 #### [facility],[address] [place] [address] 06426 Creatinine [Mass/Vol] 0.8 mg/dL Normal 0.6 - 1.2 [facility] Comment on above: Performed By: #### 2 62960 #### [facility],[address] [place] [address] 86502 GFR/1.73 sq M predicted among non-blacks MDRD (S/P/Bld) [Vol rate/Area] mL/min/{1.73_m2} Normal 60 - 999 [facility] Comment on above: Result Comment: ACCO RDING TO THE NATIONAL KIDNEY DISEASE EDUCATION PROGRAM(NKDE), A NORMAL eGFR IS A VALUE GREATER THAN OR EQUAL TO 60 ML/MIN/1.73 SQ METERS. CHRONIC KIDNEY DISEASE: <60mL/MIN/1.73 SQ METERS KIDNEY FAILURE: <15mL/MIN/1.73 SQ METERS THIS TEST SHOULD ONLY BE USED FOR PATIENTS 18 YEARS OF AGE AND OLDER. Performed By: #### 2 72100 #### [address] [address] GFR/1.73 sq M predicted among non-blacks MDRD (S/P/Bld) [Vol rate/Area] Normal [facility] Comment on above: Result Comment: BASI C METABOLIC PANEL Performed By: #### 2 04635 #### [address] [address] Glucose [Mass/Vol] 119 mg/dL High 74 - 106 [facility] Comment on above: Performed By: #### 2 84506 #### [address] [address] Potassium [Moles/Vol] 3.3 mmol/L Low 3.5 - 5.1 [facility] Comment on above: Performed By: #### 2 46024 #### [facility],[address] [place] [address] 89422 Sodium [Moles/Vol] 140 mmol/L Normal 136 - 145 [facility] Comment on above: Performed By: #### 2 13213 #### [address] [address] Urea nitrogen [Mass/Vol] 17 mg/dL Normal 6 - 20 [facility] Comment on above: Performed By: #### 2 15403 #### [address] [address] CBC + DIFFon 07-24-2019 Basophils (Bld) [#/Vol] 0.00 x10EE3/UL Normal 0.00 - 0.10 [facility] Comment on above: Performed By: #### 2 64075 #### [facility],[address] [place] [address] 41299 Basophils/100 WBC (Bld) 0.4 % Normal 0.0 - 2.0 [facility] Comment on above: Performed By: #### 2 63706 #### [facility],[address] [place] [address] CBC + DIFF Normal [facility] Comment on above: Result Comment: CBC- COMPLETE BLOOD COUNT Performed By: #### 2 96707 #### [facility],[address] [place] [address] Eosinophils (Bld) [#/Vol] 0.10 x10EE3/UL Normal 0.00 - 0.50 [facility] Comment on above: Performed By: #### 2 47415 #### [facility],[address] [place] [address]28[address] Eosinophils/100 WBC (Bld) 1.1 % Normal 0.0 - 7.0 [facility] Comment on above: Performed By: #### 2 43104 #### [facility],[address] [place], [place] [address] Erythrocyte distribution width (RBC) [Ratio] 16.2 % High 12.0 - 15.6 [facility] Comment on above: Performed By: #### 2 81396 #### [facility],[address] [place] [address]8899 Hematocrit (Bld) [Volume fraction] 44.0 % Normal 34.0 - 46.0 [facility] Comment on above: Performed By: #### 2 82792 #### [facility],[address] [place] [address] 38315 Hemoglobin (Bld) [Mass/Vol] 14.7 g/dL Normal 12.0 - 16.0 [facility] Comment on above: Performed By: #### 2 88287 #### [facility],[address] [place] [address] 26641 Lymphocytes (Bld) [#/Vol] 1.30 x10EE3/UL Normal 0.80 - 2.80 [facility] Comment on above: Performed By: #### 2 37206 #### [facility],[address] [place] [address] 80573 Lymphocytes/100 WBC (Bld) 16.3 % Low 20.0 - 45.0 [facility] Comment on above: Performed By: #### 2 48796 #### [facility],[address] [place] [address] 95459 MANUAL DIFF N/A Normal [facility] Comment on above: Performed By: #### 2 61794 #### [facility],[address] [place] [address] 35616 MCH (RBC) [Entitic mass] 30 pg Normal 27 - 33 [facility] Comment on above: Performed By: #### 2 22712 #### [facility],[address] [place] [address] 76742 MCHC (RBC) [Mass/Vol] 33 X10 3 Normal 32 - 36 [facility] Comment on above: Performed By: #### 2 07887 #### [facility],[address] [place] [address] 81438 MCV (RBC) [Entitic vol] 89 fL Normal 80 - 99 [facility] Comment on above: Performed By: #### 2 76817 #### [facility],[address] [place] [address] 13645 Monocytes (Bld) [#/Vol] 0.70 x10EE3/UL Normal 0.20 - 1.00 [facility] Comment on above: Performed By: #### 2 88776 #### [facility],[address] [place] [address] 62797 MONOS % 9.3 % Normal 0.0 - 10.0 [facility] Comment on above: Performed By: #### 2 75922 #### [facility],[address] [place] [address] 52681 Morphology Pj (Bld) [Interp] N/A Normal [facility] Comment on above: Performed By: #### 2 78017 #### [facility],[address] [place] [address] 58228 Neutrophils (Bld) [#/Vol] 5.70 x10EE3/UL Normal 1.50 - 7.10 [facility] Comment on above: Performed By: #### 2 28969 #### [facility],[address] [place] [address] 13918 Neutrophils/100 WBC (Bld) 72.9 % Normal 46.0 - 76.0 [facility] Comment on above: Performed By: #### 2 20105 #### [facility],[address] [place] [address] 20365 Platelet mean volume (Bld) [Entitic vol] 9.2 fL Normal 6.6 - 10.5 [facility] Comment on above: Result Comment: AUTO MATED DIFFERENTIAL Performed By: #### 2 68732 #### [facility],[address] [place] [address] 42330 Platelets (Bld) [#/Vol] 149 x10EE3/UL Low 150 - 450 [facility] Comment on above: Performed By: #### 2 93463 #### [facility],[address] [place] [address] 87486 RBC (Bld) [#/Vol] 4.97 x 10EE6/UL Normal 4.10 - 5.30 [facility] Comment on above: Performed By: #### 2 83498 #### [facility],[address] [place] [address] 97718 WBC (Bld) [#/Vol] 7.9 x 10EE3/UL Normal 4.5 - 10.8 [facility] Comment on above: Performed By: #### 2 72552 #### [facility],[address] [place] [address] 67642 CHEST 2 VIEWSon 07-24-2019 CHEST [address] [address] Patient: LETICIA CARRILLO Phone#: : 1945 Age: 74 Gender: F Pt. Type: ER Account: [id number] Location: [facility] Ordering: DR. RAQUEL RUELAS Exam Date: 07/24/2019/17:19 Family Phys: Charge Code: 630873 Physician: Barren Order #: [id number] DLP Dose#: PROCEDURE: X-RAY CHEST 2 VIEWS COMPARISON: None. INDICATIONS: Chest pain. FINDINGS: LUNGS: Normal. No significant pulmonary parenchymal abnormalities. VASCULATURE: Normal. Unremarkable pulmonary vasculature. CARDIAC: Normal. No cardiac silhouette abnormality or cardiomegaly. MEDIASTINUM: Normal. No visible mass or adenopathy. PLEURA: Normal. No effusion or pleural thickening. BONES: Mild degenerative changes of the spine are present. OTHER: Surgical clips are present in the left upper abdomen. CONCLUSION: No acute disease. Dictated by: Scarlett Mcclellan MD on 07/24/2019 at 17:46 Approved by: Scarlett Mcclellan MD on 07/24/2019 at 17:46 Normal [facility] PROTHROMBIN TIME AND INRon 0 07-24-2019 INR Coag (Bld) [Relative time] Normal [facility] Comment on above: Result Comment: PROT HROMBIN TIME AND INR Performed By: #### 2 75924 #### [facility],[address] [place] [address] 51850 INR Coag (PPP) [Relative time] 1.0 {INR} Normal 0.8 - 1.2 [facility] Comment on above: Result Comment: T HE HEMOSIL THROMBOPLASTIN REAGENT USED IN THE PROTHROMBIN TIME TEST INTERACTS WITH THE DRUG CUBICIN (DAPTOMYCIN) AND WILL RESULT IN FALSELY ELEVATED PT / INR RESULTS INR INTERPRETATION INR INDICATION PREVENTION AND TREATMENT OF THROMBOEMBOLISM ASSOCIATED WITH: 2.0 - 3.0 ATRIAL FIBRILLATION, BIOPROSTHETIC HEART VALVES, PULMONARY EMBOLISM, VENOUS THROMBOSIS, SYSTEMIC EMBOLISM POST MYOCARDIAL INFARCTION 2.5 - 3.5 MECHANICAL HEART VALVES Performed By: #### 2 53446 #### [facility],[address] [place] [address] 86052 PT-COUMADIN 11.6 sec Normal 9.3 - 14.1 [facility] Comment on above: Performed By: #### 2 47077 #### [facility],[address] [place] [address] 82609 TROPONINon 07-24-2019 Troponin I.cardiac [Mass/Vol] 1.39 ng/mL Critically high 0.00 - 0.05 [facility] Comment on above: Result Comment: { CA LLED TO DYLAN AT 2036 RA 2035 { READ BACK BY ZA TO DJB Elevated troponin (above the 99th percentile) usually indicates myocardial ischemia. Results must be interpreted within the clinical setting. 1.Non-ischemic pathology can also cause elevated troponin levels (e.g., acute pulmonary embolism, myocarditis, pericarditis, heart failure, intracranial injury, rhabdomyolisis, sepsis, shock and renal insufficiency). 2.Approximately 1% of healthy adults have elevated troponin levels. 3.Analytical false positive results rarely occur(due to multiple interferences such as heterophile antibodies). Performed By: #### 2 63117 #### [facility],[address] [place] [address] 94012 Troponin I.cardiac [Mass/Vol] 0.35 ng/mL Critically high 0.00 - 0.05 [facility] Comment on above: Result Comment: { CA LLED TO ADRIENNE AT 1757 RA 1756 { READ BACK BY HY TO DJB Elevated troponin (above the 99th percentile) usually indicates myocardial ischemia. Results must be interpreted within the clinical setting. 1.Non-ischemic pathology can also cause elevated troponin levels (e.g., acute pulmonary embolism, myocarditis, pericarditis, heart failure, intracranial injury, rhabdomyolisis, sepsis, shock and renal insufficiency). 2.Approximately 1% of healthy adults have elevated troponin levels. 3.Analytical false positive results rarely occur(due to multiple interferences such as heterophile antibodies). Performed By: #### 2 01153 #### [facility],[address] [facility] [address] Creatinineon 03-26-2019 Creatinine [Mass/Vol] 0.66 mg/dL Normal 0.55-1.02 [facility] Hemoglobinon 03-26-2019 Hemoglobin (Bld) [Mass/Vol] 11.4 g/dL Low 11.5-17.0 [facility] Patient Summaryon 03-26-2019 Patient Summary PATIENT DISCHARGE INSTRUCTIONS If you are having an emergency and are not able to reach your physician, CALL 911 or go to the nearest emergency room and take this document with you. [facility] 03/26/19 09:[address] [place] [address]. [id number] PATIENT INFORMATION - Name: LETICIA CARRILLO Address: [address] [place] [id number] Age: 74 Years Phone: [phone] : 1945 12:[birth year] MRN: [id number] Sex: Female Race: White Ethnicity: Not Hispan/Lat Admitted From: Clinic or [facility] Medical Service: Orthopedic Surgery Nurse Unit/Bed: (CO) 2N 0209-01 Admit Date: 03/25/2019 04:38 PCP: Physician, PCP Unknown PHYSICIANS INVOLVED WITH CARE Attending Physicians: Benson Peters MD , [facility] - Orthopaedic Surg Admitting Physician: Benson Peters MD , [facility] - Orthopaedic Surg Primary Care Physician:Physician , PCP Unknown,Family Practice,,, - Consults: ROQUE Perales - Internal Medicine Vinicius Grullon MD - Internal Medicine FOLLOW-UP APPOINTMENTS: Provider: Specialty: Address: Date: [facility] Knowles Jr, MD Orthopaedic Surg [address] [address] (1) Six Weeks Comment: Call for an Appointment; call for any questions or concerns Provider: Specialty: Address: Date: PCP Unknown Physician Family Practice Follow-up as needed Provider: Specialty: Address: Date: Physical therapy is recommended but optional for hip surgeries. You can do home exercises Follow-up as needed Comment: If you schedule physical therapy, take your blue physical therapy prescription to your first appointment ALLERGIES: Nalfon : Reaction:Fluid retention Tolectin DS : Reaction:Retention of fluid [employer] Metals MEASUREMENTS: Last Charted: Weight: 118.9 kg /262 lbs 2 oz ( 03/25/19 05:27:00 ) MEDICATIONS For: GERARDOLETICIA Ansari This is your list of medication(s). Keep it with you at all times. Your doctor may have changed doses, add, held or stopped some of your medications. Please share this information with your family doctor. Carry this list of medications with you in case of an emergency. Update it when medications are stopped, doses are changed, or new medications (including [id number]-[id number] products) are added. Ask your doctor if you have any questions. THESE ARE THE MEDICATIONS YOU SHOULD BE TAKING acetaminophen (Tylenol) 1 Tab(s) By Mouth as needed Pain/Discomfort. NOTES TO PATIENT: see new order from surgeon ascorbic acid (Vitamin C) 500 Milligram By Mouth once a day. NOTES TO PATIENT: may resume after follow up appointment with surgeon cholecalciferol (Vitamin D3 5000 intl units oral tablet) 1 Tab(s) By Mouth once a day. Freetext Medication Prescriptions for discharge Arixtra/Lovenox Aspirin after Arixtra/Lovenox completed Tylenol Celebrex Oxycodone Tramadol. Freetext Medication (CBD Drops) By Mouth once a day. Freetext Medication (Clear Lungs Herbal) 1 Tab(s) By Mouth Twice a day. NOTES TO PATIENT: may resume after follow up appointment with surgeon Freetext Medication (Factos 5 Herbal) 400 Milligram By Mouth Twice a day. NOTES TO PATIENT: may resume after follow up appointment with surgeon Freetext Medication (Quercetin 1 g) 1 Tab(s) By Mouth Twice a day. NOTES TO PATIENT: may resume after follow up appointment with surgeon gabapentin (Gabapentin 600 mg Tab) 600 Milligram By Mouth 3 Times a day. hydroCHLOROthiazide (hydroCHLOROthiazid e 25 mg oral tablet) 1 Tab(s) By Mouth once a day. am. magnesium oxide (Magnesium Oxide-200) 1 Tab(s) By Mouth Twice a day. multivitamin 1 Tab(s) By Mouth Twice a day. umeclidinium-vilant holden (Anoro Ellipta 62.5 mcg-25 mcg inhalation powder) 1 Puff(s) Inhalation once a day. am. MEDICATION CHANGE DETAILS (Not your Final Home Medication List) During the course of your visit, your home medication list was updated with the most current information. The details of those changes are shown below: NEW MEDICATIONS Other Medications Freetext Medication Prescriptions for discharge Arixtra/Lovenox Aspirin after Arixtra/Lovenox completed Tylenol Celebrex Oxycodone Tramadol. Comment UPDATED MEDICATIONS None UNCHANGED MEDICATIONS Other Medications acetaminophen (Tylenol) 1 Tab(s) By Mouth as needed Pain/Discomfort. NOTES TO PATIENT: see new order from surgeon Comment ascorbic acid (Vitamin C) 500 Milligram By Mouth once a day. NOTES TO PATIENT: may resume after follow up appointment with surgeon Comment cholecalciferol (Vitamin D3 5000 intl units oral tablet) 1 Tab(s) By Mouth once a day. Comment Freetext Medication (CBD Drops) By Mouth once a day. Comment Freetext Medication (Clear Lungs Herbal) 1 Tab(s) By Mouth Twice a day. NOTES TO PATIENT: may resume after follow up appointment with surgeon Comment Freetext Medication (Factos 5 Herbal) 400 Milligram By Mouth Twice a day. NOTES TO PATIENT: may resume after follow up appointment with surgeon Comment Freetext Medication (Quercetin 1 g) 1 Tab(s) By Mouth Twice a day. NOTES TO PATIENT: may resume after follow up appointment with surgeon Comment gabapentin (Gabapentin 600 mg Tab) 600 Milligram By Mouth 3 Times a day. Comment hydroCHLOROthiazide (hydroCHLOROthiazid e 25 mg oral tablet) 1 Tab(s) By Mouth once a day. am. Comment magnesium oxide (Magnesium Oxide-200) 1 Tab(s) By Mouth Twice a day. Comment multivitamin 1 Tab(s) By Mouth Twice a day. Comment umeclidinium-vilant holden (Anoro Ellipta 62.5 mcg-25 mcg inhalation powder) 1 Puff(s) Inhalation once a day. am. Comment STOP TAKING THESE MEDICATIONS diclofenac (Diclofenac EC 50 mg Tab) 50 Milligram By Mouth Twice a day. DO NOT TAKE UNTIL YOU TALK TO YOUR DOCTOR None NON-MEDICATION PRESCRIPTION SCHEDULING PHONE NUMBER: SELECTED LAB RESULTS Lab Result Order Date Hemoglobin 11.4 gm/dL 03/26/2019 Sodium Level 145 mMol/L 03/25/2019 Potassium Level 3.7 mMol/L 03/26/2019 Creatinine 0.66 mg/dL 03/26/2019 BUN 21 mg/dL 03/25/2019 Glucose Level 99 mg/dL 03/25/2019 ADVANCE DIRECTIVE/HEALTH CARE DECISIONS: Advance Directive/Health Care Decisions Executed by Patient: Yes Advance Directive/Health Care Decisions Type: Living Will, Medical Power of Repairer Screen Crusher Copy of Advance Directive/Health Care Decisions on Chart: Patient/Family asked to provide copy SUICIDE HOTLINE: Your mental and emotional well-being are important. If you are in a mental health crisis, or having thoughts of suicide, please call the nationwide suicide hotline, anytime day or night, at 8-423-876-AIVG. Important information about accessing your health information through the [place] [employer] [facility] patient portal If you initiated the self-registration process for [employer] [facility] during your stay, please check your personal email for an invitation to enroll in [employer] and complete the steps outlined in the email. If you would prefer to enroll while in the hospital, ask a member of your care team. We would be happy to assist you. If you have already enrolled in [employer] [facility], go to [email or web address] to login and access your health information. Thank you for choosing [facility]. PATIENT EDUCATION How and Where to Give Subcutaneous Enoxaparin Injections Enoxaparin is an injectable medicine. It is used to help prevent blood clots from developing in your veins. Health care providers often use anticoagulants like enoxaparin to prevent clots following surgery. Enoxaparin is also used in combination with other medicines to treat blood clots and heart attacks. If blood clots are left untreated, they can be life threatening. Enoxaparin comes in single-use syringes. You inject enoxaparin through a syringe into your belly (abdomen). You should change the injection site each time you give yourself a shot. Continue the enoxaparin injections as directed by your health care provider. Your health care provider will use blood clotting test results to decide when you can safely stop using enoxaparin injections. If your health care provider prescribes any additional medicines, use the medicines exactly as directed. HOW DO I INJECT ENOXAPARIN? 1.??Wash your hands with soap and water. 2.??Clean the selected injection site as directed by your health care provider. 3.??Remove the needle cap by pulling it straight off the syringe. 4.??Hold the syringe like a pencil using your writing hand. 5.??Use your other hand to pinch and hold an inch of the cleansed skin. 6.??Insert the entire needle straight down into the fold of skin. 7.??Push the plunger with your thumb until the syringe is empty. 8.??Pull the needle straight out of your skin. 9.??Enoxaparin injection prefilled syringes and graduated prefilled syringes are available with a system that chong the needle after injection. After you have completed your injection and removed the needle from your skin, firmly push down on the plunger. The protective sleeve will automatically cover the needle and you will hear a click. The click means the needle is safely covered. 10.??Place the syringe in the nearest needle box, also called a sharps container. If you do not have a sharps container, you can use a hard-sided plastic container with a secure lid, such as an empty laundry detergent bottle. WHAT ELSE DO I NEED TO KNOW?Do not use enoxaparin if: ???You have allergies to heparin or pork products. ???You have been diagnosed with a condition called thrombocytopenia. ???Do not use the syringe or needle more than one time. ???Use medicines only as directed by your health care provider. ???Changes in medicines, supplements, diet, and illness can affect your anticoagulation therapy. Be sure to inform your health care provider of any of these changes. ???It is important that you tell all of your health care providers and your dentist that you are taking an anticoagulant, especially if you are injured or plan to have any type of procedure. ???While on anticoagulants, you will need to have blood tests done routinely as directed by your health care provider. ???While using this medicine, avoid physical activities or sports that could result in a fall or cause injury. ???Follow up with your laboratory test and health care provider appointments as directed. It is very important to keep your appointments. Not keeping appointments could result in a chronic or permanent injury, pain, or disability. ???Before giving your medicine, you should make sure the injection is a clear and colorless or pale yellow solution. If your medicine becomes discolored or if there are particles in the syringe, do not use it and notify your health care provider. ???Keep your medicine safely stored at room temperature. SEEK MEDICAL CARE IF: ???You develop any rashes on your skin. ???You have large areas of bruising on your skin. ???You have any worsening of the condition for which you take Enoxaparin. ???You develop a fever. SEEK IMMEDIATE MEDICAL CARE IF: ???You develop bleeding problems such as: ???Bleeding from the gums or nose that does not stop quickly. ???Vomiting blood or coughing up blood. ???Blood in your urine. ???Blood in your stool, or stool that has a dark, tarry, or coffee grounds appearance. ???A cut that does not stop bleeding within 10 minutes. These symptoms may represent a serious problem that is an emergency. Do not wait to see if the symptoms will go away. Get medical help right away. Call your local emergency services (911 in the [place] Do not drive yourself to the hospital. This information is not intended to replace advice given to you by your health care provider. Make sure you discuss any questions you have with your health care provider. Document Released: 02/02/2005 Document Revised: 04/24/2015 Document Reviewed: 09/18/2014 [employer] Interactive Patient Education ?2016 [email or web address] Pain Medicine Instructions HOW CAN PAIN MEDICINE AFFECT ME? You were given a prescription for pain medicine. This medicine may make you tired or drowsy and may affect your ability to think clearly. Pain medicine may also affect your ability to drive or perform certain physical activities. It may not be possible to make all of your pain go away, but you should be comfortable enough to move, breathe, and take care of yourself. HOW OFTEN SHOULD I TAKE PAIN MEDICINE AND HOW MUCH SHOULD I TAKE?Take pain medicine only as directed by your health care provider and only as needed for pain. ???You do not need to take pain medicine if you are not having pain, unless directed by your health care provider. ???You can take less than the prescribed dose if you find that a smaller amount of medicine controls your pain. WHAT RESTRICTIONS DO I HAVE WHILE TAKING PAIN MEDICINE? Follow these instructions after you start taking pain medicine, while you are taking the medicine, and for 8 hours after you stop taking the medicine: ???Do not drive. ???Do not operate machinery. ???Do not operate power tools. ???Do not sign legal documents. ???Do not drink alcohol. ???Do not take sleeping pills. ???Do not supervise children by yourself. ???Do not participate in activities that require climbing or being in high places. ???Do not enter a body of water?such as a [place], river, ocean, spa, or swimming pool?without an adult nearby who can monitor and help you. HOW CAN I KEEP OTHERS SAFE WHILE I AM TAKING PAIN MEDICINE?Store your pain medicine as directed by your health care provider. Make sure that it is placed where children and pets cannot reach it. ???Never share your pain medicine with anyone. ???Do not save any leftover pills. If you have any leftover pain medicine, get rid of it or destroy it as directed by your health care provider. WHAT ELSE DO I NEED TO KNOW ABOUT TAKING PAIN MEDICINE?Use a stool softener if you become constipated from your pain medicine. Increasing your intake of fruits and vegetables will also help with constipation. ???Write down the times when you take your pain medicine. Look at the times before you take your next dose of medicine. It is easy to become confused while on pain medicine. Recording the times helps you to avoid an overdose. ???If your pain is severe, do not try to treat it yourself by taking more pills than instructed on your prescription. Contact your health care provider for help. ???You may have been prescribed a pain medicine that contains acetaminophen. Do not take any other acetaminophen while taking this medicine. An overdose of acetaminophen can result in severe liver damage. Acetaminophen is found in many brct-utj-merqpxw (OTC) and prescription medicines. If you are taking any medicines in addition to your pain medicine, check the active ingredients on those medicines to see if acetaminophen is listed. WHEN SHOULD I CALL MY HEALTH CARE PROVIDER?Your medicine is not helping to make the pain go away. ???You vomit or have diarrhea shortly after taking the medicine. ???You develop new pain in areas that did not hurt before. ???You have an allergic reaction to your medicine. This may include: ???Itchiness. ???Swelling. ???Dizziness. ???Developing a new rash. WHEN SHOULD I CALL 911 OR GO TO THE EMERGENCY ROOM?You feel dizzy or you faint. ???You are very confused or disoriented. ???You repeatedly vomit. ???Your skin or lips turn pale or bluish in color. ???You have shortness of breath or you are breathing much more slowly than usual. ???You have a severe allergic reaction to your medicine. This includes: ???Developing tongue swelling. ???Having difficulty breathing. This information is not intended to replace advice given to you by your health care provider. Make sure you discuss any questions you have with your health care provider. Document Released: 07/10/2001 Document Revised: 08/18/2015 Document Reviewed: 02/05/2015 [employer] Interactive Patient Education ?2016 [employer] Incentive Spirometer An incentive spirometer is a tool that can help keep your lungs clear and active. This tool measures how well you are filling your lungs with each breath. Taking long, deep breaths may help reverse or decrease the chance of developing breathing (pulmonary) problems (especially infection) following: ???Surgery of the chest or abdomen. ???Surgery if you have a history of smoking or a lung problem. ???A long period of time when you are unable to move or be active. BEFORE THE PROCEDURE ???If the spirometer includes an indicator to show your best effort, your nurse or respiratory therapist will set it to a desired goal. ???If possible, sit up straight or lean slightly forward. Try not to slouch. ???Hold the incentive spirometer in an upright position. INSTRUCTIONS FOR USE 1.??Sit on the edge of your bed if possible, or sit up as far as you can in bed or on a chair. 2.??Hold the incentive spirometer in an upright position. 3.??Breathe out normally. 4.??Place the mouthpiece in your mouth and seal your lips tightly around it. 5.??Breathe in slowly and as deeply as possible, raising the piston or the ball toward the top of the column. 6.??Hold your breath for 3?5 seconds or for as long as possible. Allow the piston or ball to fall to the bottom of the column. 7.??Remove the mouthpiece from your mouth and breathe out normally. 8.??Rest for a few seconds and repeat Steps 1 through 7 at least 10 times every 1?2 hours when you are awake. Take your time and take a few normal breaths between deep breaths. 9.??The spirometer may include an indicator to show your best effort. Use the indicator as a goal to work toward during each repetition. 10.??After each set of 10 deep breaths, practice coughing to be sure your lungs are clear. If you have an incision (the cut made at the time of surgery), support your incision when coughing by placing a pillow or rolled-up towels firmly against it. Once you are able to get out of bed, walk around indoors and cough well. You may stop using the incentive spirometer when instructed by your caregiver. RISKS AND COMPLICATIONS ???Breathing too quickly may cause dizziness. At an extreme, this could cause you to pass out. Take your time so you do not get dizzy or light-headed. ???If you are in pain, you may need to take or ask for pain medication before doing incentive spirometry. It is harder to take a deep breath if you are having pain. AFTER USE ???Rest and breathe slowly and easily. ???It can be helpful to keep a log of your progress. Your caregiver can provide you with a simple table to help with this. If you are using the spirometer at home, follow these instructions: SEEK MEDICAL CARE IF: ???You are having difficultly using the spirometer. ???You have trouble using the spirometer as often as instructed. ???Your pain medication is not giving enough relief while using the spirometer. ???You develop fever of 100.5?F (38.1?C) or higher. SEEK IMMEDIATE MEDICAL CARE IF: ???You cough up bloody sputum that had not been present before. ???You develop fever of 102?F (38.9?C) or greater. ???You develop worsening pain at or near the incision site. MAKE SURE YOU: ???Understand these instructions. ???Will watch your condition. ???Will get help right away if you are not doing well or get worse. This information is not intended to replace advice given to you by your health care provider. Make sure you discuss any questions you have with your health care provider. Document Released: 08/14/2007 Document Revised: 04/24/2015 Document Reviewed: 11/10/2014 [employer] Interactive Patient Education ?2016 [email or web address] Fall Prevention in the Home Falls can cause injuries. They can happen to people of all ages. There are many things you can do to make your home safe and to help prevent falls. WHAT CAN I DO ON THE OUTSIDE OF MY HOME?Regularly fix the edges of walkways and driveways and fix any cracks. ???Remove anything that might make you trip as you walk through a door, such as a raised step or threshold. ???Trim any bushes or trees on the path to your home. ???Use bright outdoor lighting. ???Clear any walking paths of anything that might make someone trip, such as rocks or tools. ???Regularly check to see if handrails are loose or broken. Make sure that both sides of any steps have handrails. ???Any raised decks and porches should have guardrails on the edges. ???Have any leaves, snow, or ice cleared regularly. ???Use sand or salt on walking paths during winter. ???Clean up any spills in your garage right away. This includes oil or grease spills. WHAT CAN I DO IN THE BATHROOM?Use night lights. ???Install grab bars by the toilet and in the tub and shower. Do not use towel bars as grab bars. ???Use non-skid mats or decals in the tub or shower. ???If you need to sit down in the shower, use a plastic, non-slip stool. ???Keep the floor dry. Clean up any water that spills on the floor as soon as it happens. ???Remove soap buildup in the tub or shower regularly. ???Attach bath mats securely with double-sided non-slip rug tape. ???Do not have throw rugs and other things on the floor that can make you trip. WHAT CAN I DO IN THE BEDROOM?Use night lights. ???Make sure that you have a light by your bed that is easy to reach. ???Do not use any sheets or blankets that are too big for your bed. They should not hang down onto the floor. ???Have a firm chair that has side arms. You can use this for support while you get dressed. ???Do not have throw rugs and other things on the floor that can make you trip. WHAT CAN I DO IN THE KITCHEN?Clean up any spills right away. ???Avoid walking on wet floors. ???Keep items that you use a lot in robm-cx-beekx places. ???If you need to reach something above you, use a strong step stool that has a grab bar. ???Keep electrical cords out of the way. ???Do not use floor slovak or wax that makes floors slippery. If you must use wax, use non-skid floor wax. ???Do not have throw rugs and other things on the floor that can make you trip. WHAT CAN I DO WITH MY STAIRS?Do not leave any items on the stairs. ???Make sure that there are handrails on both sides of the stairs and use them. Fix handrails that are broken or loose. Make sure that handrails are as long as the stairways. ???Check any carpeting to make sure that it is firmly attached to the stairs. Fix any carpet that is loose or worn. ???Avoid having throw rugs at the top or bottom of the stairs. If you do have throw rugs, attach them to the floor with carpet tape. ???Make sure that you have a light switch at the top of the stairs and the bottom of the stairs. If you do not have them, ask someone to add them for you. WHAT ELSE CAN I DO TO HELP PREVENT FALLS?Wear shoes that: ???Do not have high heels. ???Have rubber bottoms. ???Are comfortable and fit you well. ???Are closed at the toe. Do not wear sandals. ???If you use a stepladder: ???Make sure that it is fully opened. Do not climb a closed stepladder. ???Make sure that both sides of the stepladder are locked into place. ???Ask someone to hold it for you, if possible. ???Clearly jordin and make sure that you can see: ???Any grab bars or handrails. ???First and last steps. ???Where the edge of each step is. ???Use tools that help you move around (mobility aids) if they are needed. These include: ???Canes. ???Walkers. ???Scooters. ???Crutches. ???Turn on the lights when you go into a dark area. Replace any light bulbs as soon as they burn out. ???Set up your furniture so you have a clear path. Avoid moving your furniture around. ???If any of your floors are uneven, fix them. ???If there are any pets around you, be aware of where they are. ???Review your medicines with your doctor. Some medicines can make you feel dizzy. This can increase your chance of falling. Ask your doctor what other things that you can do to help prevent falls. This information is not intended to replace advice given to you by your health care provider. Make sure you discuss any questions you have with your health care provider. Document Released: 01/28/2010 Document Revised: 08/18/2015 Document Reviewed: 05/08/2015 [email or web address] Interactive Patient Education ?2016 [email or web address] Preventing Constipation After Surgery Constipation is when a person has fewer than 3 bowel movements a week; has difficulty having a bowel movement; or has stools that are dry, hard, or larger than normal. Many things can make constipation likely after surgery. They include: ???Medicines, especially numbing medicines (anesthetics) and very strong pain medicines called narcotics. ???Feeling stressed because of the surgery. ???Eating different foods than normal. ???Being less active. Symptoms of constipation include: ???Having fewer than 3 bowel movements a week. ???Straining to have a bowel movement. ???Having hard, dry, or nwhjva-qwfe-jlwkfd stools. ???Feeling full or bloated. ???Having pain in the lower abdomen. ???Not feeling relief after having a bowel movement. HOME CARE INSTRUCTIONS Diet ???Eat foods that have a lot of fiber. These include fruits, vegetables, whole grains, and beans. Limit foods high in fat and processed sugars. These include pashto fries, hamburgers, cookies, and candy. ???Take a fiber supplement as directed. If you are not taking a fiber supplement and think that you are not getting enough fiber from foods, talk to your health care provider about adding a fiber supplement to your diet. ???Drink clear fluids, especially water. Avoid drinking alcohol, caffeine, and soda. These can make constipation worse. ???Drink enough fluids to keep your urine clear or pale yellow. Activity ???After surgery, return to your normal activities slowly or when your health care provider says it is okay. ???Start walking as soon as you can. Try to go a little farther each day. ???Once your health care provider approves, do some sort of regular exercise. This helps prevent constipation. Bowel Movements ???Go to the restroom when you have the urge to go. Do not hold it in. ???Try drinking something hot to get a bowel movement started. ???Keep track of how often you use the restroom. If you miss 2?3 bowel movements, talk to your health care provider about medicines that prevent constipation. Your health care provider may suggest a stool softener, laxative, or fiber supplement. ???Only take yzxj-hpm-immwqwd or prescription medicines as directed by your health care provider. ???Do not take other medicines without talking to your health care provider first. If you become constipated and take a medicine to make you have a bowel movement, the problem may get worse. Other kinds of medicine can also make the problem worse. SEEK MEDICAL CARE IF: ???You used stool softeners or laxatives and still have not had a bowel movement within 24?48 hours after using them. ???You have not had a bowel movement in 3 days. SEEK IMMEDIATE MEDICAL CARE IF: ???Your constipation lasts for more than 4 days or gets worse. ???You have bright red blood in your stool. ???You have abdominal or rectal pain. ???You have very bad cramping. ???You have thin, pencil-like stools. ???You have unexplained weight loss. ???You have a fever or persistent symptoms for more than 2?3 days. ???You have a fever and your symptoms suddenly get worse. This information is not intended to replace advice given to you by your health care provider. Make sure you discuss any questions you have with your health care provider. Document Released: 07/29/2013 Document Revised: 04/24/2015 Document Reviewed: 07/29/2013 [email or web address] Interactive Patient Education ?2016 [email or web address] Venous Thromboembolism, Prevention A venous thromboembolism is a blood clot that forms in a vein. A blood clot in a deep vein is called a deep venous thrombosis (DVT). A blood clot in the lungs is called a pulmonary embolism (PE). Blood clots are dangerous and can cause . Blood clots can form in the: ???Lungs. ???Legs. ???Arms. CAUSES ???A blood clot can form in a vein from different conditions. A blood clot can develop due to: ???Blood flow within a vein that is sluggish or very slow. ???Medical conditions that make the blood clot easily. ???Vein damage. RISK FACTORS Risk factors can increase your risk of developing a blood clot. Risk factors can include: ???Smoking. ???Obesity. ???Age. ???Immobility or sedentary lifestyle. ???Sitting or standing for long periods of time. ???Chronic or long-term bedrest. ???Medical or past history of blood clots. ???Family history of blood clots. ???Hip, leg, or pelvis injury or trauma. ???Major surgery, especially surgery on the hip, knee, or abdomen. ??? and childbirth. ??? control pills and hormone replacement therapy. ???Medical conditions such as ???Peripheral vascular disease (PVD). ???Diabetes. ???Cancer. SYMPTOMS Symptoms of VTE can depend on where the clot is located and if the clot breaks off and travels to another organ. Sometimes, there may be no symptoms. ???DVT symptoms can include: ???Swelling of the leg or arm, especially on one side. ???Warmth and redness of the leg or arm, especially on one side. ???Pain in an arm or leg. Leg pain may be more noticeable or worse when standing or walking. ???PE symptoms can include: ???Shortness of breath. ???Coughing. ???Coughing up blood or blood-tinged mucus (hemoptysis). ???Chest pain or chest pain with deep breaths (pleuritic chest pain). ???Apprehension, anxiety, or a feeling of impending doom. ???Rapid heartbeat. PREVENTION ???Exercise regularly. Take a brisk 30 minute walk every day. Staying active and moving around can help prevent blood clots. ???Avoid sitting or lying in bed for long periods of time. Change your position often, especially during a long trip. ???Women, especially those over the age of 35, should consider the risks and benefits of taking estrogen medicines. This includes control pills and hormone replacement therapy. ???Do not smoke, especially if you take estrogen medicines. If you smoke, talk to your caregiver on how to quit. ???Eat plenty of fruits and vegetables. Ask your caregiver or dietitian if there are foods you should avoid. ???Maintain a weight as suggested by your caregiver. ???Wear loose-fitting clothing. Avoid constrictive or tight clothing around your legs or waist. ???Try not to bump or injure your legs. Avoid crossing your legs when you are sitting. ???Do not use pillows under your knees unless told by your caregiver. ???Take all medicines that your caregiver prescribes you. ???Wear special stockings (compression stockings or SONIA hose) if your caregiver prescribes them. ???Wearing compression stockings (support hose) can make the leg veins more narrow. This increases blood flow in the legs and can help prevent blood clots. ???It is important to wear compression stockings correctly. Do not let them bunch up when you are wearing them. TRAVEL Long distance travel can increase the risk of a blood clot. To prevent a blood clot when traveling: ???You should exercise your legs by walking or by pumping your muscles every hour. To help prevent poor circulation on long trips, stand, stretch, and walk up and down the aisle of your airplane, train, or bus as often as possible to get the blood moving. ???Do squats if you are able. If you are unable to do squats, raise your foot on the balls of your feet and tighten your lower leg muscles (particularly the calve muscles) while seated. Pointing (flexing and extending) your toes while tightening your calves while seated are also good exercises to do every hour during long trips. They help increase blood flow and reduce risk of DVT. ???Stay well hydrated. Drink water regularly when traveling, especially when you are sitting or immobile for long periods of time. ???Use of drugs to prevent DVT during routine travel is not generally recommended. Before taking any drugs to reduce risk of DVT, consult your caregiver. SURGERY AND HOSPITALIZATION ???People who are at high risk for a blood clot may be given a blood thinning medicine (anticoagulant) when they are hospitalized even if they are not going to have surgery. ???A long trip prior to surgery can increase the risk of a clot for patients undergoing hip and knee replacements. Talk to your caregiver about travel plans before your surgery. ???After hip or knee surgery, your caregiver may give you anticoagulants to help prevent blood clots. ???Anticoagulants may be given to people at high risk of developing thromboembolism, before, during, or sometimes after surgery, including people with clotting disorders or with a history of past thromboembolism. TRAVEL AFTER SURGERY ???In orthopedic surgery, the cutting of bones prompts the body to increase clotting factors in the blood. Due to the size of the bones involved in hip and knee replacements, there is a higher risk of blood clotting than other orthopedic surgeries. ???There is a risk of clotting for up to 4?6 weeks after surgery. Flying or traveling long distances can increase your risk of a clot. As a result, those who travel long distances may need additional preventive measures after their procedure. ???Drink only non-alcoholic beverages during your flight, train, or car travel. Alcohol can dehydrate you and increase your risk of getting blood clots. SEEK IMMEDIATE MEDICAL CARE IF: ???You develop chest pain. ???You develop severe shortness of breath. ???You have breathing problems after traveling. ???You develop swelling or pain in the leg. ???You begin to cough up bloody mucus or phlegm (sputum). ???You feel dizzy or faint. This information is not intended to replace advice given to you by your health care provider. Make sure you discuss any questions you have with your health care provider. Document Released: 03/22/2010 Document Revised: 12/26/2012 Document Reviewed: 07/29/2015 [employer] Interactive Patient Education ?2016 [employer] PATIENT DISCHARGE INSTRUCTION Signature Page for: LETICIA CARRILLO Date/Time: 03/26/2019 09:11:27 A Clinician has explained the information on my discharge instructions and has provided me with a copy. My questions have been answered to my satisfaction. Patient Signature ___ Date/Time Responsible Party Date/Time Relationship to Patient Clinician Signature Date/Time Normal [facility] Potassium Levelon 03-26-2019 Potassium [Moles/Vol] 3.7 mmol/L Normal 3.5-5.1 [facility] Basic Metabolic Panelon Calcium [Mass/Vol] 9.4 mg/dL Normal 8.5-10.6 [facility] Chloride [Moles/Vol] 106 mmol/L Normal 98-107 [facility] CO2 [Moles/Vol] 30 mmol/L Normal 21-32 [facility] Creatinine [Mass/Vol] 0.76 mg/dL Normal 0.55-1.02 [facility] Glucose [Mass/Vol] 99 mg/dL Normal 70-99 [facility] Potassium [Moles/Vol] 3.6 mmol/L Normal 3.5-5.1 [facility] Sodium [Moles/Vol] 145 mmol/L Normal 136-145 [facility] Urea nitrogen (BldV) [Mass/Vol] 21 mg/dL High 7.0-18.0 [facility] Urea nitrogen/Creatinine [Mass ratio] 28 mg/mg Normal [facility] OR Nursingon 03-25-2019 OR Nursing Normal [facility] PACU I Nursingon 03-25-2019 PACU I Nursing [facility] NA PACU I Nursing Record Summary Primary Physician: Roscoe Knowles Jr, MD Finalized Date/Time: 03/25/19 09:12:41 Pt. Name: LETICIA CARRILLO JUDI Moyer/Sex: 1945 Female Med Rec #: [id number] Physician: Roscoe Knowles Jr, MD Financial #: [id number] Pt. Type: I Room/Bed: / Admit/Disch: 03/25/19 04:38:00 - Institution: [facility] NA OR Main PACU I Case Times Entry 1 In PACU I 03/25/19 08:09:00 Ready for PACU I 03/25/19 09:00:00 Discharge Discharge from PACU 03/25/19 09:00:00 PACU I Discharge NA I Delay Reason Last Modified By: Rose Chavez RN 03/25/19 09:12:32 [facility] NA OR Main PACU I Case Attendees Entry 1 Case Attendee Rose Chavez RN Role Performed RN Last Modified By: Rose Chavez RN 03/25/19 08:39:56 Finalized By: Rose Chavez RN Document Signatures Signed By: Rose Chavez RN 03/25/19 09:12 Normal [facility] PreOp Nursingon 03-25-2019 PreOp Nursing [place] NA PreOp Nursing Record Summary Primary Physician: Roscoe Knowles Jr, MD Finalized Date/Time: 03/25/19 06:33:24 Pt. Name: LETICIA CARRILLO /Sex: 1945 Female Med Rec #: [id number] Physician: Roscoe Knowles Jr, MD Financial #: [id number] Pt. Type: I Room/Bed: / Admit/Disch: 03/25/19 04:38:00 - Institution: [facility] NA OR PreOp Case Times Entry 1 PreOp Case Times In Room Time 03/25/19 05:10:00 Out Room Time 03/25/19 06:28:00 Last Modified By: Olga Encarnacion RN 03/25/19 06:33:22 CO NA OR PreOp Case Attendees Entry 1 Case Attendee Carolyn Dukes RN Role Performed RN Last Modified By: Teetee Del Rosario 03/25/19 05:21:13 Finalized By: Olga Encarnacion RN Document Signatures Signed By: Olga Encarnacion RN 03/25/19 06:33 Normal [facility] XR Pelvis 1-2 Viewson 2018 XR Pelvis 1 or 2 views EXAMINATION TYPE: XR Pelvis 1-2 Views DATE OF EXAM : 03/25/2019 9:00 AM HISTORY: Postoperative COMPARISON: 02/20/2012 FINDINGS: Status post LEFT total hip arthroplasty. Air within the surrounding soft tissues, consistent with recent postoperative state. No acute fracture is evident, given portable AP projection. Status post previous RIGHT total hip arthroplasty, similar in alignment to the comparison exam. Advanced degenerative disc disease at L4-L5 and L5-S1, with intervertebral disc height loss and endplate osteophytosis. IMPRESSION: Status post LEFT total hip arthroplasty with recent postoperative changes. [place] thanks you for the opportunity to care for your patient. Workstation ID: [id number] FINAL REPORT Dictated By: Issa Sandhu MD 03/25/2019 09:37 Assigned Physician: Issa Sandhu MD Reviewed and Electronically Signed By: Issa Sandhu MD 03/25/2019 09:40 Transcribed by: YAN 03/25/2019 09:37 Technologist: KENDY Roman [facility] Comment on above: Order Comment: Posto perative, s/p SUSI Basic Metabolic Panelon 02-15 Calcium [Mass/Vol] 9.0 mg/dL Normal 8.5-10.6 [facility] Chloride [Moles/Vol] 105 mmol/L Normal 98-107 [facility] CO2 [Moles/Vol] 30 mmol/L Normal 21-32 [facility] Creatinine [Mass/Vol] 0.77 mg/dL Normal 0.55-1.02 [facility] Glucose [Mass/Vol] 90 mg/dL Normal 70-99 [facility] Potassium [Moles/Vol] 4.4 mmol/L Normal 3.5-5.1 [facility] Sodium [Moles/Vol] 144 mmol/L Normal 136-145 [facility] Urea nitrogen (BldV) [Mass/Vol] 23 mg/dL High 7.0-18.0 [facility] Urea nitrogen/Creatinine [Mass ratio] 30 mg/mg Normal [facility] CBC with Differentialon 02-15 Basophils (Bld) [#/Vol] 0.0 thou/mcL Normal 0.0-0.2 [facility] Basophils/100 WBC (Bld) 0.6 % Normal 0-3 [facility] Differential cell count method Nom (Bld) AUTOMATED DIFFERENTIAL Normal [facility] Eosinophils (Bld) [#/Vol] 0.1 thou/mcL Normal 0.0-0.4 [facility] Eosinophils/100 WBC (Bld) 1.7 % Normal 0-7 [facility] Lymphocytes (Bld) [#/Vol] 1.0 thou/mcL Normal 0.7-4.5 [facility] Lymphocytes/100 WBC (Bld) 19.9 % Normal 14-46 [facility] Monocytes (Bld) [#/Vol] 0.5 thou/mcL Normal 0.1-1.0 [facility] Monocytes/100 WBC (Bld) 10.7 % Normal 4-13 [facility] Neutrophils (Bld) [#/Vol] 3.3 thou/mcL Normal 1.5-7.8 [facility] Neutrophils/100 WBC (Bld) 67.1 % Normal 40-74 [facility] Erythrocyte distribution width (RBC) [Entitic vol] 15.7 % High 11.7-15.0 [facility] Hematocrit (Bld) [Volume fraction] 39.5 % Normal 34.0-50.0 [facility] Hemoglobin (Bld) [Mass/Vol] 13.0 g/dL Normal 11.5-17.0 [facility] MCH (RBC) [Entitic mass] 29.2 Picograms Normal 27.0-34.0 [facility] MCHC (RBC) [Mass/Vol] 32.9 g/dL Normal 32.0-36.0 [facility] MCV (RBC) [Entitic vol] 88.9 fL Normal 80-98 [facility] Platelet mean volume (Bld) [Entitic vol] 9.7 fL Normal 7.5-11.2 [facility] Platelets (Bld) [#/Vol] 180 thou/mcL Normal 140-415 [facility] RBC (Bld) [#/Vol] 4.44 x(10)6/mcL Normal 3.80-5.60 Mo [facility] WBC (Bld) [#/Vol] 4.9 thou/mcL Normal 4.0-10.5 [facility] Partial Thromboplastin Time (aPTT)on 03-04-2019 aPTT Coag (PPP) [Time] 28 Sec Normal 23.2-34.6 [facility] Prothrombin Timeon 9 INR Coag (Bld) [Relative time] 1.0 {INR} Normal [facility] Comment on above: Result Comment: LOIS NG THE INDUCTION PHASE OF ORAL ANTICOAGULATION, THE INR MAY NOT REFLECT THE ANTICOAGULANT STATUS OF THE PATIENT. THERAPEUTIC RANGES FOR INR'S ARE: MOST CLINICAL SITUATIONS: INR 2.0-3.0 MECHANICAL PROSTHETIC VALVES: INR 2.5-3.5 CRITICAL: INR 5.0 PT Coag (PPP) [Time] 13.1 Sec Normal 11.9-14.6 [facility] Vital Signs Date Time Vital Sign Value Performing Clinician Faci lity 01-28-2025 08:18-0400 Body mass index (BMI) [Ratio] 35.9 kg/m2 Dr. Jose Meehan DO Work Phone: [facility] 01-28-2025 08:18-0400 Body temperature 97.4 [degF] Dr. Jose Meehan DO Work Phone: [facility] 01-28-2025 08:18-0400 Body weight 103.[address] Jose Meehan DO Work Phone: [facility] 01-28-2025 08:18-0400 Diastolic blood pressure 75 mm[Hg] Dr. Jose Meehan DO Work Phone: [facility] 01-28-2025 08:18-0400 Heart rate 71 /min Dr. Jose Meehan DO Work Phone: [facility] 01-28-2025 08:18-0400 Inhaled oxygen flow rate 3 L/min Dr. Jose Meehan DO Work Phone: [facility] 01-28-2025 08:18-0400 Respiratory rate 18 /min Dr. Jose Meehan DO Work Phone: [facility] 01-28-2025 08:18-0400 SaO2% (BldA) [Mass fraction] 99 % Dr. Jose Meehan DO Work Phone: [facility] 01-28-2025 08:18-0400 Systolic blood pressure 125 mm[Hg] Dr. Jose Meehan DO Work Phone: [facility] 03-29-2022 11:20-0500 Body height 170.[address] Jose Meehan Work Phone: [facility] 03-29-2022 11:20-0500 Body mass index (BMI) [Ratio] 39.1 kg/m2 Dr. Jose Meehan Work Phone: [facility] 03-29-2022 11:20-0500 Body weight 113.[address] Jose Meehan Work Phone: [facility] 03-29-2022 11:20-0500 Diastolic blood pressure 85 mm[Hg] Dr. Jose Meehan Work Phone: [facility] 03-29-2022 11:20-0500 Heart rate 75 /min Dr. Jose Meehan Work Phone: [facility] 03-29-2022 11:20-0500 Inhaled oxygen flow rate 3 L/min Dr. Jose Meehan Work Phone: [facility] 03-29-2022 11:20-0500 Respiratory rate 20 /min Dr. Jose Meehan Work Phone: [facility] 03-29-2022 11:20-0500 SaO2% (BldA) [Mass fraction] 98 % Dr. Jose Meehan Work Phone: [facility] 03-29-2022 11:20-0500 Systolic blood pressure 178 mm[Hg] Dr. Jose Meehan Work Phone: [facility] 11-30-2021 12:13-0400 Body height 170.[address] Jose Meehan Work Phone: [facility] Work Phone: 11-30-2021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 available[facility] Work Phone: Summary Purpose Family History Relationship Condition Age at Onset Recorded Date/T tayla mother Cardiac disease Unknown father Cardiac disease Unknown Advance Directives Advance Directive Response Recorded Date/ Time Living Will Yes August 18, 2019 5: 59pm Power of Repairer Screen Crusher Yes August 18, 2019 5:59pm Advance Directive Response Recorded Date/ Time Living Will Yes August 18, 2019 4: 59pm Power of Repairer Screen Crusher Yes August 18, 2019 4:59pm Assessments Note CONSULTATION DICTATED BY: BRENDEN ALONSO MD DATE OF SERVICE: 03/04/2019 NAME: LETICIA CARRILLO DATE OF : 1945 SURGERY DATE: 03/25/2019 REFERRING PHYSICIAN: Roscoe Knowles MD ADMISSION DIAGNOSIS: Osteoarthritis, left hip. CHIEF COMPLAINT: Preoperative medical risk stratification. HISTORY OF PRESENT ILLNESS: This is a 74-year-old female who presents for preoperative medical risk stratification consultation at the request of Dr. Knowles prior to left total hip replacement. The patient reports progressive osteoarthritis involving the left hip. Symptoms are now severe and have failed nonsurgical options. Please see below regarding the status of this patient's active medical conditions and the assessment and plan for the preoperative medical risk stratification. Medical Illnesses: 1. Hypertension, onset 2013, currently being managed by her primary care physician, Dr. Meehan. 2. COPD, diagnosed in 2019 with no recent acute exacerbation. 3. Neuropathy, for which she uses lauryn (more content not included)... Note Patient: LETICIA CARRILLO JUDI Beckman RN: ([id number] Age: 74 years Sex: Female : 1945 Associated Diagnoses: None Author: Vinicius Grullon MD Assessment Assessment Diagnosis: DDD (degenerative disc disease) (GXQ19-WM M51.35, Working, Medical). Plan OA: Left hip s/p THR by Dr Knowles 03/25/19 seen POD#1 - pain control with iv narcotics initially and converting to orals in next 24h with iv for btp only - Medically acceptable for discharge once meets discharge criteria as detailed in orders. I have reviewed and reconciled medications except for antibiotics, pain medications and dvt prophylaxis which I defer to primary surgical service. Unable to Pass Flatus: Reports no flatus, anesthesia induced, cont clears, encourage ambulation, ADAT when + passing gas Hemoglobin Drop: preop 13.0, EBL reported at 200ml, current 11.4, this appears to be perioperative blood loss, hd stable and asymptomatic, no ongoing overt bleeding noted clinically - cont serial vs, labs, continuou (more content not included)... Note CLINICAL SUMMARY Please take this summary document to your follow up appointments. [facility] 03/26/19 09:[address] [place] [address]. [id number] PATIENT INFORMATION Name: LETICIA CARRILLO Address: [address] [address] Age: 74 Years Phone: [phone] : 1945 12:00 Sex: Female Race: White Ethnicity: Not Hispan/Lat Admitted From: Clinic or [facility] Medical Service: Orthopedic Surgery Nurse Unit/Bed: ([place]) 2N 0209-01 Admit Date: 03/25/2019 04:38 PCP: Physician, PCP Unknown PHYSICIANS INVOLVED WITH CARE Attending Physicians: Benson Peters MD , Roscoe - Orthopaedic Surg Admitting Physician: Benson Peters MD , Roscoe - Orthopaedic Surg Primary Care Physician:Physician, PCP Unknown,Family Practice,,, - Consults: ROQUE Perales - Internal Medicine Mitchel GARCIA , M (more content not included)... Note Patient: LETICIA CARRILLO Rk RN: ([id number] Age: 74 years Sex: Female : 1945 Associated Diagnoses: None Author: Silvestre Bone DO Subjective Subjective: Patient participated in the evaluation: Yes. Nausea: not present. Vomiting: not present. Pain: acceptable pain control. Objective Objective: Vital Signs: Last Charted Vital Signs Temperature: 98.1 (03/25 19:26) Pulse: 62 (03/25 19:26) Respiration: 16 (03/25 19:26) BP: 141/67 (03/25 19:26) Pulse Ox: 96 (03/25 19:26) Oxygen Delivery: Nasal cannula (03/25 18:45) O2 Device Flow: 2 L/min Pain Score: 0 (03/25 15:00) . Mental Status: alert and oriented. Postoperative hydration: adequate. Assessment Assessment: Post anesthetic condition: no anesthetic complications, the patient is doing well, pain is adequately controlled. Airway patent: yes. Plan Plan: Postanesthesia Plan: post anesthetic surveillance concluded. Hospital Course Note CLINICAL SUMMARY Please take this summary document to your follow up appointments. [facility] 03/26/19 09:[address] [place] [address]. [id number] PATIENT INFORMATION Name: LETICIA CARRILLO Address: [address] [address] Age: 74 Years Phone: [phone] : 1945 12:00 MRN: [id number] Sex: Female Race: White Ethnicity: Not Hispan/Lat Admitted From: Clinic or [facility] Medical Service: Orthopedic Surgery Nurse Unit/Bed: ([place]) 2N 0209-01 Admit Date: 03/25/2019 04:38 PCP: Physician, PCP Unknown PHYSICIANS INVOLVED WITH CARE Attending Physicians: Benson Peters MD , Roscoe - Orthopaedic Surg Admitting Physician: Benson Peters MD , Roscoe - Orthopaedic Surg Primary Care Physician:Physician, PCP Unknown,Family Practice,,, - Consults: ROQUE Perales - Internal Medicine Mitchelsusy GARCIA M (more content not included)... Procedure Findings Note Patient: LETICIA CARRILLO Rk RN: ([facility])-[id number] Age: 74 years Sex: Female : 1945 Associated Diagnoses: None Author: Silvestre Bone DO Subjective Subjective: Patient participated in the evaluation: Yes. Nausea: not present. Vomiting: not present. Pain: acceptable pain control. Objective Objective: Vital Signs: Last Charted Vital Signs Temperature: 98.1 (03/25 19:26) Pulse: 62 (03/25 19:26) Respiration: 16 (03/25 19:26) BP: 141/67 (03/25 19:26) Pulse Ox: 96 (03/25 19:26) Oxygen Delivery: Nasal cannula (03/25 18:45) O2 Device Flow: 2 L/min Pain Score: 0 (03/25 15:00) . Mental Status: alert and oriented. Postoperative hydration: adequate. Assessment Assessment: Post anesthetic condition: no anesthetic complications, the patient is doing well, pain is adequately controlled. Airway patent: yes. Plan Plan: Postanesthesia Plan: post anesthetic surveillance concluded. Chief Complaint and Reason for Visit Chief Complaint 6 M FU OCPD OCPD Reason for Visit History of pulmonary embolism Chronic hypoxemic respiratory failure COPD (chronic obstructive pulmonary disease) Chief Complaint OCPD OCPD 9 M FU INT LABS Reason for Visit Dyspnea on exertion History of pulmonary embolism Essential (primary) hypertension Nonobstructive atherosclerosis of coronary artery Chief Complaint OCPD OCPD 9 M FU INT LABS DYSPNEA- copy pcp Reason for Visit Dyspnea on exertion History of pulmonary embolism Essential (primary) hypertension Nonobstructive atherosclerosis of coronary artery Chief Complaint Admit Date 6 M FU January 28, 2025 1 0:57am Reason for Visit Admit Date Daytime hypersomnia January 28, 2025 1 0:57am Chronic respiratory failure with hypoxia January 28, 2025 10:57am COPD (chronic obstructive pulmonary dise ase) January 28, 2025 10:57am Obesity (BMI 30-39.9) January 28, 2025 10:57am Pulmonary hypertension January 28 10:57am Additional Source Comments INFORMATION SOURCE (unrecogn ized section and content) DATE CREATED AUTHOR 03/26/[address] [facility] DATE CREATED AUTHOR AUTHOR'S ORGANIZ ATION 07/26/2019 [facility] DATE CREATED AUTHOR AUTHOR'S ORGANIZ ATION 04/13/2022 [facility] DATE CREATED AUTHOR AUTHOR'S ORGANIZ ATION 11/26/2023 [facility] ([place]) DATE CREATED AUTHOR AUTHOR'S ORGANIZ ATION 09/01/2024 [facility] DATE CREATED AUTHOR AUTHOR'S ORGANIZ ATION 12/06/2024 [facility] DATE CREATED AUTHOR AUTHOR'S ORGANIZ ATION 02/08/2025 [facility] Care Team (unrecognized sect ion and content) Care Team Personnel Name: JOSE MEEHAN DO Position: P4 Physician - Primary Care Med Service: Active Provider Member Role: Primary Care Physician Address: Address: [address] [place] [address] Care Team Related Persons Name: ILA ROGERS Care Team Personnel Name: JOSE MEEHAN DO Position: P4 Physician - Primary Care Med Service: Active Provider Member Role: Primary Care Physician Address: Address: [address] [place] [address]- Care Team Related Persons Name: ILA ROGERS Care Team Personnel Name: JOSE MEEHAN DO Position: P4 Physician - Primary Care Member Role: Primary Care Physician Address: Address: [address] [place] [address]- Care Team Related Persons Name: ILA ROGERS Care Team Personnel Name: JOSE MEEHAN DO Position: P4 Physician - Primary Care Member Role: Primary Care Physician Address: Address: [address] [place] [address] Care Team Related Persons Name: ILA ROGERS Care Team Personnel Name: JOSE MEEHAN DO Position: P4 Physician - Primary Care Member Role: Primary Care Physician Address: Address: [address] [place] [address] Care Team Related Persons Name: ILA ROGERS Care Team Personnel Name: JOSE MEEHAN DO Position: P4 Physician - Primary Care Member Role: Primary Care Physician Address: Address: [address] [place] [address] Care Team Related Persons Name: ILA ROGERS Goals (unrecognized section and content) Goals may be documented in a n alternate section Care Teams (unrecognized sec tion and content) Team Status: Active Member Role Status Dates Dr. Jose Meehan , DO Primary Care Provider Activ e Team Status: Inactive Member Role Status Dates Dr. Jose Meehan , DO Primary Care Provider, Refe rring Provider Active Rose DOAN, PA Attending Provider Active Team Status: Active Member Role Status Dates Dr. Jose Meehan , DO Primary Care Provider Activ e Dr. Vonda Daily , DO Referring Provider, Other Provide r Active Dr. Tarun Dean MD Attending Provider Active Team Status: Active Member Role Status Dates Dr. Jose Meehan DO Primary Care Provider Activ e Dr. Harvinder Mejia MD Attending Provider Active Team Status: Inactive Member Role Status Dates Dr. Jose Meehan , DO Primary Care Provider Activ e Dr. Vonda Daily , DO Attending Provider, Referring Pro vider Active Team Status: Inactive Member Role Status Dates Dr. Jose Meehan , DO Primary Care Provider Activ e Rose DOAN, PA Attending Provider, Referr ing Provider Active Team Status: Active Member Role/Relationship Status Dates Dr. Jose Meehan DO Primary care physician Acti ve Team Status: Inactive Member Role/Relationship Status Dates Dr. Jose Meehan , DO Primary care physician Acti ve Start: January 28, 2025 End: January 28, 2025 Dr. Jose Meehan , Referring Provider Active Start: January 28, 2025 End: January 28, 2025 Concepcion Nolasco ARCHERY INSTRUCTOR, ARCHERY INSTRUCTOR-C Attending physician Active Start: January 28, 2025 End: January 28, 2025 FOR RECORDS PERTAINING TO PATIENTS WHO ARE OR HAVE BEEN ENROLLED IN A CHEMICAL DEPENDENCY/SUBSTANCEABUSE PROGRAM, SOME INFORMATION MAY BE OMITTED. This clinical summary was aggregated from multiple sources. Caution should be exercised in using it in the provision of clinical care. This summary normalizes information from multiple sources, and as a consequence, information in this document may materially change the coding, format and clinical context of patient data. In addition, data may be omitted in some cases. CLINICAL DECISIONS SHOULD BE BASED ON THE PRIMARY CLINICAL RECORDS. [facility] [employer] [facility]. provides no warranty or guarantee of the accuracy or completeness of information in this document.
== END | disposition home or self-care (01) ==
LOC: SL 19:34
PROVIDERS: Referring Provider Nurse Practitioner Acute Care; Visit Provider Nurse Practitioner Acute Care
DX: G47.10 Hypersomnia, unspecified (principal)
CPT/HCPCS: 95810